=== PATIENT | female | born 1940 | race Caucasian/White ===

== ENCOUNTER 2018-06-13 12:16 | Outpatient (CLI) | payer MEDICARE, SELFPAY ==
[2018-06-13 13:55] LABS: Albumin 3.9 g/dL (3.4-5.0)
[2018-06-13 14:04] LABS: ALT 19 U/L (12-78); AST 20 U/L (15-37); Alkaline Phosphatase 90 U/L (46-116); Anion Gap 10.8 mmol/L (3-11); BUN 16 mg/dL (7-18); Bilirubin, Total 0.4 mg/dL (0.2-1.0); CO2 27.2 mmol/L (21.0-32.0); CREATININE 1.19 mg/dL (0.55-1.02); Calcium 9.1 mg/dL (8.5-10.1); Chloride 105 mmol/L (98-107); Estimated GFR 44.22 (mL/min/1.73m2); Glucose 96 mg/dL (70-100); Potassium 4.3 mmol/L (3.5-5.1); Sodium 143 mmol/L (136-145)
== END 2018-06-13 12:36 ==
PROVIDERS: PCP Nurse Practitioner; Visit Provider Family Medicine
DX: N18.3 Chronic kidney disease, stage 3 (moderate) (principal)
CPT/HCPCS: 36415; 80053

== ENCOUNTER 2019-01-21 13:46 | Outpatient (REF) | payer MEDICARE, SELFPAY ==
[2019-01-21 18:14] LABS: Anion Gap 7.4 mmol/L (3-11); BUN 18 mg/dL (7-18); CO2 27.6 mmol/L (21.0-32.0); CREATININE 1.11 mg/dL (0.55-1.02); Calcium 8.7 mg/dL (8.5-10.1); Chloride 104 mmol/L (98-107); Estimated GFR 47.79 (mL/min/1.73m2); Glucose 91 mg/dL (70-100); Potassium 4.3 mmol/L (3.5-5.1); Sodium 139 mmol/L (136-145)
== END 2019-01-21 14:06 ==
LOC: LBN 13:46
PROVIDERS: PCP Family Medicine; Visit Provider Family Medicine
DX: N18.3 Chronic kidney disease, stage 3 (moderate) (principal)
CPT/HCPCS: 80048

== ENCOUNTER 2019-05-15 17:01 | Outpatient (REF) | payer MEDICARE, SELFPAY ==
[2019-05-19 11:02] LABS: Lyme Ab w Rflx to Lyme Confirm Negative
[2019-05-19 17:29] LABS: Anaplasma phagocytophilum Negative (Negative); B. miyamotoi PCR Negative (Negative); Babesia divergens/MO-1 Negative (Negative); Babesia duncani Negative (Negative); Babesia microti Negative (Negative); Ehrlichia chaffeensis Negative (Negative); Ehrlichia ewingii/canis Negative (Negative); Ehrlichia muris eauclairensis Negative (Negative)
== END 2019-05-15 17:21 ==
LOC: LBN 17:01
PROVIDERS: PCP Family Medicine; Visit Provider Family Medicine
DX: M25.50 Pain in unspecified joint (principal)
CPT/HCPCS: 87798; 86618

== ENCOUNTER 2019-11-19 11:57 | Observation (INO) | payer MEDICARE, SELFPAY ==
[2019-11-19 12:01] VITALS: BP 128/58; PULSE 86; RESP 18; TEMP 36.3; O2SAT 95
--- NOTE | 2019-11-19 12:15 | DI.RAD_ITS ---
EXAM: XR HIP RT COMPLETE AP PELVIS INDICATION: Fall, right hip pain, hematoma. COMPARISON: No exams were available for comparison TECHNIQUE: 2D digital imaging was performed. FINDINGS: No fracture or dislocation is seen. There is acetabular spurring bilaterally. A metallic anchor is seen at the left greater trochanter. There are mild SI joint degenerative changes. Degenerative ch anges are also noted at L5-S1. IMPRESSION: No acute abnormality. DATA REPOSITORY: RADIATION DOSE DELIVERED:
--- NOTE | 2019-11-19 12:35 | W.ED.GENAD ---
Discharge Plan Disposition Patient Disposition: OTHER Condition: Serious Discharge Details Chief Complaint: Trauma Clinical Impression: Closed head injury with concussion, Traumatic hematoma of buttock Admit Date/Time: 11/19/19 15:08 Admit Provider: Bandar Grant Attending Provider: Bandar Grant Primary Care Provider: Matt Pichardo ED Provider: Bandar Savage Medical Decision Making 79-year-old female who had a slip and fall on ice striking the right side of her body. Increasing headache and pain in her right buttocks throughout the day. She appears well, no acute distress but does have a rather impressive hematoma to her right buttocks. She is neurologically intact but given her increasing headache I do believe that imaging of her head, right hip and pelvis are all reasonable. Patient is agreeable to this plan. She does not want any pain medication at this time. Discussed imaging of hip, pelvis, head, with patient?she has 2 friends in the room. She is relieved that there is nothing emergently present however at this time her friends are quite concerned about her going home in her current condition. She is 79 years old, lives at home alone, has no local family, and her friends live at least 20-25 minutes away. Patient does report mild dizziness at this time reports the dizziness is more of a feeling of being off balance and not of the room spinning. Had a long discussion, discussed her options, at this time patient would still like to try to go home. I will trial ambulate her with a walker. Patient was able to ambulate with a walker and it appeared steady however she reports now that the headache, dizzy feeling are both worsening and she even now has what she describes as in and out blurry vision of both eyes worse on the left. Visual acuities were obtained. We discussed options once again. I got care management involved in the case as well. Patient and friends do not believe that she can be discharged home safely at this time. Although she appears neurologically intact and in no acute distress subjectively she reports intermittent blurry vision, worsening headache, and worsening dizziness-feeling off balance. I do believe that a component of anxiety and the concern of her friends certainly is helping persuade her that she does need to stay here in the hospital. I will discuss the case with our hospitalist team for possible observation admission as I do not feel being discharged home is a safe disposition. It should be noted because she had a slip and fall, mechanically, laboratory values and IV access were never obtained. Medical Records Medical records reviewed: Yes I reviewed the patient's medical records. Imaging Data Radiologic Study: Attestation: I personally reviewed and interpreted this imaging study as follows: Imaging: X-Ray My impression: Right hip and pelvis unremarkable as read by me Radiologic Study #2: Imaging: CT Scan Radiologist's impression: CT head without contrast read by radiology as negative HPI General Mode of arrival: ambulatory. Date/Time Provider Initiated Documentation: 11/19/19 12:05. Limitations to Documentation: no limitations. Information obtained by: patient. HPI Narrative: This is a 79-year-old female with a history of insomnia, chronic renal disease, but not taking any medications. She had a mechanical slip and fall down 3 stairs walking outside, slipping on ice. She reports striking the right side of her body, head, elbow, hip. She did not lose consciousness. She had no headache at the time of the injury that occurred around 730 this morning but throughout the day she has developed a headache. The headache is throbbing, left frontal. She denies any pain of the elbow but does admit there is a bruise there. She did not have very severe discomfort in her right hip however as the day has gone on she is at increased swelling in her right buttocks which is caused increased pain. She reports a history of a buttocks hematoma that feels very similar to what she is experiencing now. Denies numbness, tingling, weakness. No other injuries besides what was already stated. She denies any symptoms prior to the fall Related Data Home Medications Medication Instructions Recorded Confirmed Neutrogena T/Fazal 133 ml TOPICAL PRN script 01/20/15 11/19/19 bacitracin [Bacitraycin Plus] 28 gm TOPICAL PRN 01/20/15 11/19/19 clobetasol 15 gm TOPICAL HS twice weekly #15 08/07/16 11/19/19 gm estradiol [Estrace] 42.5 gm VG 2X week #0.5 mg 08/07/16 11/19/19 acetaminophen 650 mg PO PRN PRN 11/28/16 11/19/19 clindamycin phosphate 60 ml TOPICAL PRN #1 script 01/22/18 11/19/19 varicella-zoster gE-AS01B (PF) 50 50 mcg IM ONCE #1 each 01/21/19 11/19/19 mcg/0.5 mL IM susp, kit Previous Rx's Medication Instructions Recorded clindamycin phosphate 60 ml TOPICAL PRN #1 script 01/22/18 varicella-zoster gE-AS01B (PF) 50 50 mcg IM ONCE #1 each 01/21/19 mcg/0.5 mL IM susp, kit Allergies Allergy/AdvReac Type Severity Reaction Status Date / Time Penicillins Allergy Severe Anaphylaxis Verified 11/19/19 16:07 amoxicillin Allergy Intermediate Rash Verified 11/19/19 16:07 latex Allergy Intermediate blisters, Verified 11/19/19 16:07 skin rash methotrexate Allergy Intermediate Rash Verified 11/19/19 16:07 azithromycin AdvReac Severe Severe Verified 11/19/19 16:07 nausea clindamycin AdvReac Intermediate diarrhea Verified 11/19/19 16:07 codeine AdvReac Intermediate does not Verified 11/19/19 16:07 work for her NSAIDS (Non-Steroidal AdvReac Intermediate Difficulty Verified 11/19/19 16:07 Anti-Inflamma with Vision onion AdvReac Intermediate Diarrhea Verified 11/19/19 16:07 General Stated Complaint: Trauma JUNAID: 3 Review of Systems Constitutional Constitutional: Denies fatigue, Denies fever(s), Reports headache(s) and Denies weakness Eyes Eyes: Denies blurry vision and Denies other visual disturbances ENT Ears, Nose, Mouth, and Throat: Denies dizziness and Reports headache(s) Cardiovascular Cardiovascular: Denies chest pain and Denies dyspnea Respiratory Respiratory: Denies dyspnea Gastrointestinal Gastrointestinal: Reports nausea and Denies vomiting Musculoskeletal Musculoskeletal: Reports back pain (Mild, lower right-sided) and Denies tingling Integumentary/Breasts Skin/Breast: Denies rash Neurologic Neurologic: Denies dizziness, Reports headache(s), Denies tingling, Denies paresthesias and Denies weakness Endocrine Endocrine: Denies fatigue PFSH Medical History Chronic kidney disease (CKD) stage G3b/A1, moderately decreased glomerular filtration rate (GFR) between 30-44 mL/min/1.73 square meter and albuminuria creatinine ratio less than 30 mg/g (Chronic) Collapsed vertebra, not elsewhere classified, cervical region, initial encounter for fracture (Chronic 12/01/16) some activities lead to pinched nerve, R-sided Grief (Acute) Insomnia (Acute) Intrinsic sphincter deficiency (ISD) (Resolved) 11/22/17 progress note [facility] [place] Director Of Institutional Research Irritable bowel syndrome with constipation (Chronic 08/14/17) 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) Palliative care patient (Acute) Postmenopausal atrophic vaginitis (Chronic 01/20/15) 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) Pruritus (Chronic 08/14/17) Pseudophakia of both eyes (Chronic 08/14/17) 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 Pets and animals: No Current gender identity: female What is your relationship status?: How often do you talk on the phone with friends or family?: three or more times per week How often do you get together with friends or relatives?: twice per week Panel score (0-1 are the most socially isolated patients): 1 What type of physical activity do you participate in: walking, bicycling and irregular exercise Duration: 30-45 minutes/day Frequency: 1-2 times per week Special allegra needs: No Seatbelt use: always Drive 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 or ride w/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 Working smoke detector in home: Yes Carbon monox detector in home: Yes Do you feel safe at home: Yes Do you feel safe in your relationship?: Yes Exam Const General: cooperative, healthy appearing and no acute distress Orientation: alert, awake and oriented x3 HENMT Head: normal to inspection, no palpable skull fracture, normocephalic and contusion (Small, right occiput) Ears: external ears normal, TM's normal bilaterally and EAC's normal Mouth: moist mucous membranes Eyes General: appearance normal, both eyes and all related structures Eyelids: eyelids normal Conjunctivae: conjunctivae normal Sclera: sclerae normal Cornea: corneas normal Pupils: PERRL EOM: EOM intact bilaterally Direct ophthalmoscopy: normal light reflex Neck Neck: normal visual inspection, full ROM, trachea midline and supple Resp Effort & Inspection: normal respiratory effort and able to speak in complete sentences Auscultation: clear to auscultation bilaterally Cardio Rate: regular rate Rhythm: regular rhythm GI Palpation: soft and nontender Back/Spine/Pelvis Back: back tenderness (Mild right-sided lumbar discomfort, no bony point tenderness) Skin General skin exam: no rashes or lesions noted and ecchymosis (Right elbow minimal. Impressive to the right buttocks) Neuro General: alert, awake, oriented x3, moves all extremities and no focal motor deficits Cranial Nerves: CN's II-XI intact bilaterally Cognition: normal cognition Speech: speech normal Motor: muscle tone normal throughout, strength 5/5 throughout and no pronator drift Sensory Exam: no sensory deficits noted Extrem General: normal to inspection (Except for right lower extremity as below, and right elbow as above) Left lower extremity: full ROM, normal capillary refill and hip/thigh Details: tenderness (Right buttocks), swelling (Right buttocks) and ecchymosis (Right buttocks); no cyanosis, no edema and joint enlargement noted Psych Appearance: grossly normal Mental Status: mental status grossly normal Course Vital Signs Vital signs: Vital Signs Temperature 36.3 C L 11/19/19 12:01 Pulse 86 11/19/19 12:01 Respiratory Rate 18 11/19/19 12:01 Blood Pressure 128/58 L 11/19/19 12:01 Pulse Oximetry 95 11/19/19 12:01 Temperature 36.3 C L 11/19/19 12:01 Temperature Source Skin 11/19/19 12:01 Pulse 86 11/19/19 12:01 Respiratory Rate 18 11/19/19 12:01 Respiratory Effort Non-Labored 11/19/19 12:05 Respiratory Depth Normal 11/19/19 12:05 Respiratory Pattern Normal 11/19/19 12:05 Blood Pressure 128/58 L 11/19/19 12:01 Blood Pressure Position Supine 11/19/19 12:01 Pulse Oximetry 95 11/19/19 12:01 Oxygen Delivery Method Room Air 11/19/19 12:01 Oxygen Flow Rate 0 11/19/19 12:01 Pain Level 0 11/19/19 12:05
--- NOTE | 2019-11-19 13:07 | DI.CT_ITS ---
EXAM: CT HEAD WO CLINICAL HISTORY: fall, struck back R head, MURILLO L front. TECHNIQUE: Imaging Protocol: Axial computed tomography images with coronal and sagittal reformatted images were created and reviewed COMPARISON: HEAD AND CSPINE W/O CONTRAST from 11/28/2016 XR HIP RT COMPLETE AP PELVIS from 11/19/2019 FINDINGS: Ventricles and Extra axial spaces: Normal in size and morphology for the patient's age. Hemorrhage: None. Cerebral parenchyma: Normal. Midline shift: None. Brainstem/Cerebellum: Normal. Calvarium: Normal. Visualized Paranasal sinuses/Mastoids: Clear. IMPRESSION: Normal CT of the head. RADIATION DOSE DELIVERED: DATA REPOSITORY: All CT scans at this facility are submitted to the National Radiology Data Registry (NRDR) Dose Index Registry (DIR) with the [employer] (ACR). RADIATION OPTIMIZATION: All CT scans at this facility use at least one of these dose optimization te chniques: automated exposure control; mA and/or kV adjustment per patient size (includes targeted exa ms where dose is matched to clinical indication); or iterative reconstruction.
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
[2019-11-19 16:24] VITALS: BP 165/72; PULSE 68; RESP 18; TEMP 36.5; O2SAT 98
[2019-11-19] MEDS: Acetaminophen 325 MG TAB PO ×2 (16:57→23:55)
[2019-11-19] MEDS: Enoxaparin 40 MG/0.4 ML SYR SC (18:34)
[2019-11-19 19:38] VITALS: BP 95/52; PULSE 62; RESP 16; TEMP 35.9; O2SAT 96
[2019-11-19 23:51] VITALS: BP 129/66; PULSE 62; RESP 16; TEMP 36.9; O2SAT 97
[2019-11-20 03:16] VITALS: BP 119/62; PULSE 63; RESP 16; TEMP 35.9; O2SAT 100
[2019-11-20 07:13] LABS: Platelet Count 243 x1000/uL (130-400)
[2019-11-20 07:31] VITALS: BP 139/66; PULSE 68; RESP 20; TEMP 36.7; O2SAT 95
[2019-11-20 11:50] VITALS: BP 130/75; PULSE 76; RESP 18; TEMP 36.6; O2SAT 98
[2019-11-20] MEDS: Acetaminophen 325 MG TAB PO (12:24)
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
--- NOTE | 2019-11-20 14:53 | CHAPLAIN ---
While Kerry was in the ER last night, I had a short visit with her. This morning she was up and washing up when I visited. She told me about her fall and said she was relieved she spent the night here. Kerry's , Kylie, six months ago, and although this has been a difficult time for Kerry, she continues to go and fine people to do things with. She swims three times a week with friends at the [employer] pool. Kerry said night time can still be difficult for her being alone in her house.
--- NOTE | 2019-11-20 17:12 | INITIAL_ITS ---
- If Service Date Differs Date of service: 11/20/19 Time of Service: 17:12 Care Management Initial Assess REASON FOR HOSPITALIZATION:: Closed head injury, r/t fall PAST MEDICAL HISTORY/PAST SURGICAL HISTORY:: Chronic kidney disease, collapsed vertebra, insomnia, intrinsic sphincter deficiency, insomnia, IBS, lichen sclerosis, osteoarthritis, pruritus, bursitis of the left hip, bursitis of the right hip, and urinary incontinence. Surgical history includes bilateral total knee replacement. PREVIOUS FUNCTIONAL STATUS/SOCIAL/FAMILY SUPPORTS:: Kerry lives alone in [facility]. She was recently , her spouse in April 2019. She has 1 daughter that lives in [place], and has 2 grandchildren. She currently does not use any equipment to ambulate, and she is independent with ADLs including transportation. 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 CURRENT FUNCTIONAL STATUS:: Kerry is alert, and engaged with CM during assess ment. Kerry makes good eye contact, and answers all questions appropriately. She openly discusses her grief related to her spouses passing. She did attempt to attend a bereavement group, however was not comfortable sharing her grief with others. She does have a small [place] of friends that she is able to swim with 3 times a week. She states that none of them could provide care for her at home however they are good social [place], and feels confident in her social support. ADVANCE DIRECTIVES:: On file. Has patient been provided with information about the portal?: No Did the patient sign up for the portal?: No (Already enrolled) CODE STATUS:: Full Code INSURANCE COVERAGE / FINANCIAL ISSUES:: Medicare and AARP CURRENT HOME/COMMUNITY SERVICES/EQUIPMENT:: No current services PRIMARY CARE PHYSICIAN:: Matt He DO at [facility] internal medicine POTENTIAL DISCHARGE NEEDS:: Kerry will need to follow-up with her primary care scheduled prior to discharge, she was provided with a front wheeled walker at the recommendation of PT. PATIENT/FAMILY EDUCATION NEEDS:: Discharge education, limitations, follow-up plan of care, asked me 3 and self-management ANTICIPATED BARRIERS TO DISCHARGE:: None TRANSPORTATION:: Via private car with friends at time of discharge. PLAN:: Kerry is being discharged home today, she is comfortable with the plan, and feels that she is ready for discharge. She has had a concussion in the past, and understands her plan of care. No additional services needed at time of discharge she will follow-up with her primary care as scheduled.
--- NOTE | 2019-11-21 13:10 | IN_ITS ---
Date of service: 11/20/19 Time of Service: 08:45 PT Notes Visit Reasons: POSTCONCUSSION DIZZINESS Physical Therapy Inpatient Initial Evaluation Date: 11/20/2019 Referring Doctor: Bandar Grant M.D. PT Orders: PT CONSULT: Safety consult for D/C Precautions: Fall. Standard. Activity as tolerated. Patient Profile/Admitting Diagnosis: Pt is a 79-year-old female that presented to the ER on 11/19/2019 following a fall at home on the ice. She was admitted to the hospital for a closed head injury with concussion and traumatic hematoma on her buttox. PMHX: Social History/Home Situation: Pt lives alone in her home in [place]. She reports that the home is handicap accessible once inside. Five stairs to enter from the front and 10 stairs to enter through the back door with railings only on one side. No family nearby. Equipment Owned/DME: Cane. Subjective: Pt reports that she had fallen when bringing her compost outside in the morning and did not realize the stairs were icy. States that she was very active and was able to ice skate before. Did not walk with an assistive device prior to her admission. She notes that she does all of the work around the house including shoveling and snow blowing, but has close friends that would be able to help out. Objective: General Observation: Pt was independently toileting when PT entered the room for initial evaluation. IV line in L UE. Bruising over right buttox. Mental Status: alert and oriented x4 Pain: pain along right side of back and right buttox. ROM: Right Upper Extremity: Shoulder Flexion WFL. Shoulder abduction WFL. Elbow flexion WFL. Wrist flexion WFL. Opening and closing of hand WFL. Left Upper Extremity: Shoulder Flexion WFL. Shoulder abduction WFL. Elbow flexion WFL. Wrist flexion WFL. Opening and closing of hand WFL. Right Lower Extremity: Hip flexion WFL. Hip abduction WFL. Knee flexion WFL. Ankle dorsiflexion WFL. Ankle plantarflexion WFL. Left Lower Extremity: Hip flexion WFL. Hip abduction WFL. Knee flexion WFL. Ankle dorsiflexion WFL. Ankle plantarflexion WFL. Strength: Right Upper Extremity: Shoulder flexors 5/5. Shoulder abductors 5/5. Elbow flexors 5/5. Elbow extensors 5/5. Chaplain Resident strong. Left Upper Extremity: Shoulder flexors 5/5. Shoulder abductors 5/5. Elbow fle xors 5/5. Elbow extensors 5/5. Chaplain Resident strong. Right Lower Extremity: Hip flexors 5/5. Hip abductors 5/5. Knee flexors 5/5. Knee extensors 5/5. Ankle dorsiflexors 5/5. Ankle plantarflexors 5/5. Left Lower Extremity: Hip flexors 5/5. Hip abductors 5/5. Knee flexors 5/5. Knee extensors 5/5. Ankle dorsiflexors 5/5. Ankle plantarflexors 5/5. Sensation: Intact as to pain and pressure on bilateral lower extremities. Reflexes: Right upper extremity: Triceps 2+. Biceps 2+ Brachioradialis 2+ Right lower extremity: Patellar tendon 2+. Achilles 0. Left upper extremity: Triceps 2+. Biceps 2+ Brachioradialis 2+ Left lower extremity: Patellar tendon 2+. Achilles 0. Bed Mobility/Transfers: Rolling independent Supine to sit independent Sit to supine independent Sit to stand supervision Stand to sit supervision Bed to chair SBA Chair to bed SBA Gait: Pt was able to ambulate 60 feet x2, full weightbearing, without the use of an assistive device, however did a handhold assist from the PT student for balance. Antalgic gait which she attributes to pain in her back and buttox, as she notes that this is not baseline. She ambulated 15 feet with the use of a front-wheeled walker. Step through gait pattern with improved stability. Supervision provided PT student. Stairs: Pt was able to ascend and descend 10 steps with unilateral upper extremity support. CGA provided by PT student with SBA proved by PT. Step through gait pattern. Balance: Static Sitting: Normal Dynamic Sitting: Normal Static Standing: Fair Dynamic Standing: Fair Special Tests: Mobility Limitations Standardized Measure [facility]-PAC 6 clicks Basic Mobility Inpatient Short Form: Raw Score: 23 CMS Score: 11% deficit Hernandez balance test: 54/56. Informed Consent/Education: Patient instructed in purpose of PT consult and plan of care. Assessment: Pt is a 79-year-old female that presented to the ER on 11/19/2019 following a fall at home on the ice. She was admitted to the hospital for a closed head injury with concussion and traumatic hematoma on her buttox. Physical therapy was consulted for a safety consult for discharge to home. The pt presented with impairment level findings and functional limitations as listed below. Hernandez balance score of 54/56 indicates low fall risk. Demonstrates antalgic gait and need for handhold assist with ambulation, which she attributes to pain in her back and buttox. With the use of a front-wheeled walk the pt demonstrated improved stability during ambulation and was agreeable to using an assistive device following discharge until pain has dissipated and she is more stable with independent ambulation. She was able to perform stair negotiation with unilateral upper extremity support without difficulty or complaints of incr eased pain. Pt does not require skilled physical therapy at this time and may be discharged home when medically cleared. Patient presents with clinical signs and symptoms consistent with current/ad mitting diagnoses that have resulted to mobility limitations and gait instability as demonstrated by the following impairment level findings: 1. Impaired standing balance 2. Impaired activity tolerance Impairments are contributing to the following functional limitations: 1. Inability to safely ambulate without assistive device and physical assistance 2. Increase completion time for mobility ADL performance 3. Increased fall risk Patient is [place] a 53785 moderate complexity based on the following: History: Pt presents with impairment level findings and functional limitations as listed above. AM-PAC raw score of 23 with deficit of 11%. Examination: Demonstrable impairment in strength, balance, and range of motion with underlying impairments and functional limitations as documented above Presentation: Evolving Decision Makin moderate complexity Goals: N/A. Physical therapy initial evaluation only. DISCHARGE RECOMMENDATIONS: Discharge to home when medically cleared. The patient would benefit from a front-wheeled walker at this time for safety with ambulation in the home. TREATMENT CODE/TIME: 46706 x 25 minutes beginning at 8:45 A.M. Thank you very much for this referral. Compa Solano, SPT Doctor of Physical Therapy Student [facility] Supervision provided by [facility] [place], [place]
== END 2019-11-20 14:21 | disposition home or self-care (01) ==
LOC: ER 15:28 → MS 16:13
PROVIDERS: Admitting Provider Internal Medicine; Emergency Provider Physician Assistant; PCP Family Medicine; Visit Provider Internal Medicine
DX: S06.0X0A Concussion without loss of consciousness, initial encounter (principal); S30.0XXA Contusion of lower back and pelvis, initial encounter; W00.1XXA Fall from stairs and steps due to ice and snow, initial encounter; R42 Dizziness and giddiness; R26.81 Unsteadiness on feet; Z87.820 Personal history of traumatic brain injury; H53.2 Diplopia; N18.3 Chronic kidney disease, stage 3 (moderate); F43.21 Adjustment disorder with depressed mood; Z60.2 Problems related to living alone
CPT/HCPCS: 36415; 36416; 82962; 97162; 99220; 99238; 99285; J1650; 70450; 73502; 85049; 99217; G0378

== ENCOUNTER 2020-01-09 11:23 | Observation (INO) | payer MEDICARE, SELFPAY ==
[2020-01-09] VITALS (8 sets, daily range): BP systolic 132–172; BP diastolic 70–89; PULSE 57–68; RESP 16–18; TEMP 36.1–36.4; O2SAT 97–99
--- NOTE | 2020-01-09 11:45 | DI.CT_ITS ---
EXAM: CT HEAD WO CLINICAL HISTORY: Vision changes, headache. TECHNIQUE: Imaging Protocol: Axial computed tomography images with coronal and sagittal reformatted images were created and reviewed COMPARISON: CT HEAD WO from 11/19/2019 FINDINGS: Ventricles and Extra axial spaces: Normal in size and morphology for the patient's age. Hemorrhage: None. Cerebral parenchyma: There are areas of decreased attenuation in the white matter consistent with sma ll vessel ischemic disease. Midline shift: None. Brainstem/Cerebellum: Normal. Calvarium: Normal. Visualized Paranasal sinuses/Mastoids: Clear. Soft Tissues: Unremarkable. IMPRESSION: No acute intracranial process. Findings were discussed with the emergency department on the date of the examination. RADIATION DOSE DELIVERED: DATA REPOSITORY: All CT scans at this facility are submitted to the National Radiology Data Registry (NRDR) Dose Index Registry (DIR) with the [employer] (ACR). RADIATION OPTIMIZATION: All CT scans at this facility use at least one of these dose optimization te chniques: automated exposure control; mA and/or kV adjustment per patient size (includes targeted exa ms where dose is matched to clinical indication); or iterative reconstruction.
--- NOTE | 2020-01-09 11:48 | ED.GENADUL_ITS ---
Discharge Plan Disposition Patient Disposition: AGAINST MEDICAL ADVICE Condition: Serious Discharge Details Chief Complaint: Headache Clinical Impression: Transient ischemic attack Admit Date/Time: 01/09/20 20:35 Admit Provider: Shun Rizzo Attending Provider: Shun Rizzo Primary Care Provider: Matt Pichardo ED Provider: Florentino Vasquez Discharge Data Discharge Date/Time-TO BE ENTERED AT DEPARTURE: 01/09/20 22:40 Medical Decision Making <Radha Pritchard - Last Filed: 01/10/20 08:04> 79-year-old female presents with vision changes which occurred twice prior to arrival. Patient states that she was in the car when she had flashes of white light which were worse in her left eye and her right eye. She then began with a sharp pain behind her left eye. She does have a history of cataract surgery. She does have a history of migraines. She did fall on December 17 and has a healing contusion noted to her left hip. She states that she slipped on some ice and fell back hitting her head. She is not on any blood thinners at this time. She is alert and oriented x3 upon arrival. No focal neuro deficits appreciated on initial exam. Vision changes get worse with position changes. When she stands up or sits up her visual changes return. She denies any chest pain, shortness of breath, nausea vomiting diarrhea. She is sensitive to sound and light. She also does state that yesterday she collapsed while outside. She states that she got dizzy and fell. 1152: Patient is alert and oriented x3. She reports intermittent episodes of visual changes including white flashing lights lasting. Associated with sharp pain behind eyes. She does have a history of migraines. This occurred 3 times in the last 4 days prior to arrival. Today's episode lasted approximately 15 minutes. Initial work-up includes CBC, CMP, urinalysis, IV fluids, CT head. 1310: CT head negative for mass or hemorrhage, initial work-up is largely within normal limits except for trace blood in the urine, creatinine 1.16 and elevated MCV and MCH. No leukocytosis. Discussed results with patient and due to the fact that she is still complaining of a headache, has had flashing lights visual changes and dizziness with a fall yesterday MRI without contrast ordered to rule out any intracerebral pathology. COMPARISON: CT HEAD WO from 11/19/2019 FINDINGS: Ventricles and Extra axial spaces: Normal in size and morphology for the patient's age. Hemorrhage: None. Cerebral parenchyma: There are areas of decreased attenuation in the white matter consistent with small vessel ischemic disease. Midline shift: None. Brainstem/Cerebellum: Normal. Calvarium: Normal. Visualized Paranasal sinuses/Mastoids: Clear. Soft Tissues: Unremarkable. IMPRESSION: No acute intracranial process. EKG obtained shows sinus bradycardia no ST elevation or depression. Rate of 55 CT is 158 QT/QTc is 476 445. Old EKG was available for review and shows normal sinus rhythm. 1516: At this time we are awaiting MRI. Upon patient reevaluation she states that her headache has somewhat decreased and is declining any medications at this time. Differential diagnosis includes but not limited to CVA, retinal detachment, o cular migraine, retinal embolus. Atypical migraine headache. 1552: Patient transported to MRI. She remains alert and oriented. Care to be handed off to Dr. Pedro MCELROY pending MRI result and disposition. <Florentino Vasquez MD - Last Filed: 01/09/20 20:17> 16:00 --care signed out by GEORGETTE Pritchard. Plan to follow-up on MRI and MRA. --MRI was interpreted by radiology: Unremarkable MRI of the brain for patient age. MRA of the brain interpreted by radiology: Short segment severe stenosis of the right P1?P2 junction. Additional foci of short segment mild to moderate stenosis throughout the remaining distal right INFORMATION TECHNOLOGY ANALYST branches. MRI of the neck interpreted by radiology: No MRA evidence of occlusion or significant stenosis in the arteries of the neck. ECG was reviewed and interpreted by me: Sinus bradycardia 55 bpm, normal axis, nondiagnostic. Patient was reassessed and I talked to her about her current presentation. She notes left upper visual field loss that started around 1030 this morning. She describes having a small white pyramid lake in her left upper visual field that increased in size. She then developed depth perception while driving and had to close her left eye in order to continue driving. Patient states that every 6 to 8 months she has had brief similar episodes over the past few years. Patient also notes that she has had associated frontal headache which is currently mild. I am concerned given MRI findings that patient is having TIA. Plan to discuss with neurology at [facility]. Images sent to [facility] for review. --I spoke with Dr. Silva and discussed ED presentation and course. She has not had an opportunity to review images yet. She will review images and call me back. --I spoke with Dr. Silva who recommends full dose aspirin, full dose Plavix, and atorvastatin tonight. She recommends admission here at [facility] for monitoring overnight. Per neurology recommendation: Plan to continue low-dose aspirin 81 mg and Plavix 75 mg and atorvastatin 40 mg daily on discharge. HPI <Radha Pritchard - Last Filed: 01/10/20 08:04> General Mode of arrival: ambulatory . Date/Time Provider Initiated Documentation: 01/09/20 11:28 . Limitations to Documentation: no limitations . Information obtained by: patient . HPI Narrative: 79-year-old female presents with vision changes which occurred twice prior to arrival. Patient states that she was in the car when she had flashes of white light which were worse in her left eye and her right eye. She then began with a sharp pain behind her left eye. She does have a history of cataract surgery. She does have a history of migraines. She did fall on December 17 and has a healing contusion noted to her left hip. She states that she slipped on some ice and fell back hitting her head. She is not on any blood thinners at this time. She is alert and oriented x3 upon arrival. No focal neuro deficits appreciated on initial exam. Vision changes get worse with position changes. When she stands up or sits up her visual changes return. She denies any chest pain, shortness of breath, nausea vomiting diarrhea. She is sensitive to sound and light. She also does state that yesterday she collapsed while outside. She states that she got dizzy and fell. Related Data Home Medications Medication Instructions Recorded Confirmed Neutrogena T/Fazal 133 ml TOPICAL PRN script 01/20/15 01/09/20 bacitracin [Bacitraycin Plus] 28 gm TOPICAL PRN 01/20/15 01/09/20 clobetasol 15 gm TOPICAL HS twice weekly #15 08/07/16 01/09/20 gm estradiol [Estrace] 42.5 gm VG 2X week #0.5 mg 08/07/16 01/09/20 acetaminophen 650 mg PO PRN PRN 11/28/16 01/09/20 clindamycin phosphate 1 % topical 1 applic TOPICAL DAILY PRN #30 ml 11/21/19 01/09/20 solution aspirin [Ecotrin Low Strength] 81 mg PO DAILY #60 tab 01/09/20 atorvastatin 40 mg PO DAILY #30 tab 01/09/20 clopidogrel [Plavix] 75 mg PO DAILY #30 tab 01/09/20 Previous Rx's Medication Instructions Recorded clindamycin phosphate 1 % topical 1 applic TOPICAL DAILY PRN #30 ml 11/21/19 solution aspirin [Ecotrin Low Strength] 81 mg PO DAILY #60 tab 01/09/20 atorvastatin 40 mg PO DAILY #30 tab 01/09/20 clopidogrel [Plavix] 75 mg PO DAILY #30 tab 01/09/20 Allergies Allergy/AdvReac Type Severity Reaction Status Date / Time Penicillins Allergy Severe Anaphylaxis Verified 11/28/19 09:04 amoxicillin Allergy Intermediate Rash Verified 11/28/19 09:04 latex Allergy Intermediate blisters, Verified 11/28/19 09:04 skin rash methotrexate Allergy Intermediate Rash Verified 11/28/19 09:04 azithromycin AdvReac Severe Severe Verified 11/28/19 09:04 nausea clindamycin AdvReac Intermediate diarrhea Verified 11/28/19 09:04 codeine AdvReac Intermediate does not Verified 11/28/19 09:04 work for her NSAIDS (Non-Steroidal AdvReac Intermediate Difficulty Verified 11/28/19 09:04 Anti-Inflamma with Vision onion AdvReac Intermediate Diarrhea Verified 11/28/19 09:04 General Stated Complaint: Headache JUNAID: 3 Review of Systems <Radha Ovalleton Beamr Filed: 01/10/20 08:04> Narrative: Constitutional: Negative for weight loss, alert and oriented, well groomed, normal body habitus, appears anxious, tearful. HEENT: Denies ear pain, nasal discharge, sore throat, trouble swallowing. Positive history of cataract repair, she reports visual changes and headache. Chest: Denies chest pain, palpitations, irregular rhythm, hypertension. Respiratory: Denies Shortness of breath, cough, hemoptysis. GI: Denies abdominal pain, nausea, vomiting, diarrhea, constipation. : Denies dysuria, hematuria, flank pain, rectal bleeding. Neuro: Denies weakness, syncope,or facial numbness. Positive dizzy and fall yesterday, reports visual changes, headache. Hematologic: Denies easy bruising, intolerance to heat or cold, hair loss. 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 progress note [facility] [place] [employer] Duty [employer] Irritable bowel syndrome with constipation (Chronic 08/14/17) 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) Palliative care patient (Acute) Postmenopausal atrophic vaginitis (Chronic 01/20/15) 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) Pruritus (Chronic 08/14/17) Pseudophakia of both eyes (Chronic 08/14/17) 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 Maternal Grandmother Breast cancer Maternal Aunt Breast cancer Maternal Aunt Breast cancer MS (multiple sclerosis) Maternal Aunt Breast cancer Maternal Aunt Breast cancer Daughter No problems noted. 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 Pets and animals: No Current gender identity: female What is your relationship status?: How often do you talk on the phone with friends or family?: three or more times per week How often do you get together with friends or relatives?: twice per week Panel score (0-1 are the most socially isolated patients): 1 What type of physical activity do you participate in: walking, bicycling and swimming Duration: 30-45 minutes/day Frequency: 3-4 times per week Special allegra needs: No Seatbelt use: always Drive intox or ride w/intox transfer driver: No Working smoke detector in home: Yes Carbon monox detector in home: Yes Do you feel safe at home: Yes Do you feel safe in your relationship?: Yes Additional Social history: Kylie May 2019 in the hospital on hospice after a prolonged illness. She's been suffering with grief since then. Trying to get out with friends. Staying physically active: walking and swimming in the winter. Will return to biking in the summer. Not close to her family members of origin or to her only daughter. I'm a loner. Exam <Radha Pritchard - Last Filed: 01/10/20 08:04> Narrative Exam Narrative: Constitutional: Alert and oriented x3. Appears stated age. Normal body habitus. Tearful anxious. Head: Normocephalic, no trauma. Eyes: Pupils PERRLA, Red reflex noted, EOM's intact. Cataracts noted. Eyelids symmetrical without lesions, discharge, or swelling. Sensitive with light. ENT: Bilateral TM's WNL, External ear normal to inspection, no mastoid TTP, swelling, or erythema, Nasal turbinates WNL, no nasal discharge. Normal dentition, Posterior pharynx WNL, no exudate. Chest: RRR, Normal S1, S2, distal pulses intact. Resp: Lungs clear to auscultation bilaterally, no wheezes, rales, or rhonchi. Musculoskeletal: Normal gait, 5/5 strength to all four extremities. Skin: No suspicious rashes or lesions. Capillary refill less than 2 sec. Neurologic: Cranial nerves II-XII intact. Alert and oriented x 3. DTR's intact. Intact [id number] bilaterally. Intact dorsal flexion and pedal flexion. Hematologic/Lymphatic: No ecchymosis, no lymphadenopathy. Neuro General: moves all extremities and no focal motor deficits Cranial Nerves: no nystagmus, facial strength normal, tongue midline, able to rotate head bilaterally and able to elevate shoulders bilaterally Cognition: normal cognition Speech: speech normal Motor: muscle tone normal throughout Coordination: [id number] test normal Psych Appearance: well kempt Mood: anxious mood Affect: sad Course <Radha Pritchard - Last Filed: 01/10/20 08:04> Vital Signs Vital signs: Vital Signs Temperature 36.1 C L 01/09/20 11:31 Pulse 61 01/09/20 11:31 Blood Pressure 159/70 H 01/09/20 11:31 Pulse Oximetry 99 01/09/20 11:31 Temperature 36.1 C L 01/09/20 11:31 Pulse 61 01/09/20 11:31 Respiratory Effort 01/09/20 11:38 Blood Pressure 159/70 H 01/09/20 11:31 Blood Pressure Position Supine 01/09/20 11:31 Pulse Oximetry 99 01/09/20 11:31 Oxygen Delivery Method Room Air 01/09/20 11:31 Oxygen Flow Rate 0 01/09/20 11:31 Pain Level 4 01/09/20 11:31 Comment 01/09/20 11:31 Sign Out <Radha Pritchard - Last Filed: 01/10/20 08:04> Sign Out Data: Sign Out Comment: Pending MRI/MRA result Last updated by Radha Pritchard at 01/09/20 16:08
[2020-01-09 12:11] LABS: Bilirubin Negative (Negative); Blood Trace-intact (Negative); Clarity Clear (Clear); Glucose Negative (Negative); Ketones Negative (Negative); Leukocyte Esterase Negative (Negative); Nitrite Negative (Negative); Specific Gravity 1.025 (1.005-1.025); Urobilinogen 0.2 EU/dL (Up TO 0.2)
[2020-01-09 12:15] LABS: Abs Immature Grans 0.01 k/cumm (0.0-0.09); Absolute Basophil Count 0.04 k/cumm (0.0-0.2); Absolute Eosinophil Count 0.32 k/cumm (0.0-0.7); Absolute Lymphocyte Count 1.87 k/cumm (1.2-3.4); Absolute Monocyte Count 0.91 k/cumm (0.11-0.7); Absolute Neutrophil Count 4.11 k/cumm (1.2-6.7); Basophils % 0.6; Eosinophils % 4.4; HCT 43.2 % (36.0-46.0); HGB 14.6 g/dL (12.0-15.5); Immature Grans % 0.1 %; Lymphocytes % 25.8; Mean Corp. HGB Concentration 33.8 g/dL (32.0-36.0); Mean Corpuscular Hemoglobin 33.4 pg (27.0-33.0); Mean Corpuscular Volume 98.9 fL (80-95); Mean Platelet Volume 9.5 fL (8.0-11.0); Monocytes % 12.5; Neutrophils % 56.6; Platelet Count 264 x1000/uL (130-400); RBC 4.37 m/cumm (4.00-5.20); White Blood Cell Count 7.26 k/cumm (4.4-10.8)
[2020-01-09 12:21] LABS: ALT 21 U/L (14-59); AST 22 U/L (15-37); Alkaline Phosphatase 68 U/L (46-116); Anion Gap 10.2 mmol/L (3-11); BUN 18 mg/dL (7-18); Bilirubin, Total 0.4 mg/dL (0.2-1.0); CO2 25.8 mmol/L (21.0-32.0); CREATININE 1.16 mg/dL (0.55-1.02); Calcium 9.1 mg/dL (8.5-10.1); Chloride 104 mmol/L (98-107); Glucose 95 mg/dL (74-106); Potassium 4.5 mmol/L (3.5-5.1); Sodium 140 mmol/L (136-145); Total Protein 7.3 g/dL (6.4-8.2)
[2020-01-09 12:30] LABS: Bacteria Negative HPF (Negative); Crystals Negative HPF (Negative); Epithelial Cells Rare HPF (Negative); RBC 0-2 HPF (0-2); WBC 0-2 HPF (0-5)
[2020-01-09 12:31] LABS: C & S Indicated? No; Casts Negative LPF (Negative); Mucus Negative (Negative)
[2020-01-09] MEDS: Normal Saline 1,000 ML 150 ML IV (12:55)
--- NOTE | 2020-01-09 13:00 | DI.MRI_ITS ---
EXAM: MR BRAIN WO CLINICAL HISTORY: Visual changes, headache, dizziness, falls. TECHNIQUE: Multiplanar multisequence MRI was performed. COMPARISON: No exams were available for comparison FINDINGS: MR examination of brain was performed without contrast administration. There is moderate generalized cerebral atrophy and there are periventricular areas of abnormal signal consistent with microvascula r ischemic change, sparing the corpus callosum. No additional focal signal abnormality seen. Diffus ion weighted imaging is within normal limits. Susceptibility weighted imaging shows no evidence of a cute intracranial hemorrhage. IMPRESSION: Cerebral atrophy and presumed microvascular ischemic changes. No evidence of acute process. DATA REPOSITORY:
--- NOTE | 2020-01-09 16:00 | DI.MRI_ITS ---
EXAM: MR ANGIO BRAIN WO and MR ANGIO NECK CLINICAL HISTORY: visual changes. TECHNIQUE: Multiplanar multisequence MRI was performed. COMPARISON: MR BRAIN WO from 01/09/2020 MR ANGIO NECK WO from 01/09/2020 FINDINGS: MR angiography of the carotid circulation was performed according to the usual protocol. There is si gnificant artifact which limits interpretation. Visualized portions of common, internal, and externa l carotid arteries appear patent with no gross aneurysm or stenosis. Vertebral arteries as visualized appear intact with no aneurysm or stenosis. MR angiography of the intracranial circulation was performed according to the usual protocol. There is left dominant vertebral circulation. Basilar artery appears intact. No vertebrobasilar aneurysm or stenosis. There is a probable high-grade short-segment stenosis of the right posterior cerebral artery at the j unction of P1 and P2 segments. Otherwise the visualized posterior cerebral arteries and major branches appear intact. Internal carotid arteries show no evidence of significant stenosis or aneurysm. Middle and anterior cerebral arteries and major branches appear intact bilaterally with no focal stenosis or aneurysm. 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 No other significant findings. DATA REPOSITORY:
--- NOTE | 2020-01-09 16:57 | DI.VRAD_ITS ---
Addendum created by Valentino Ogden MD on 01/09/2020 5:13:43 PM EDT THIS REPORT CONTAINS FINDINGS THAT MAY BE CRITICAL TO PATIENT CARE. The findings were verbally communicated via telephone conference with Dr. Florentino Vasquez at 5:13 PM EDT on 01/09/2020. The findings were acknowledged and understood. Initial report created on 01/09/2020 4:57:40 PM EDT PROCEDURE INFORMATION: Exam: MR Head Without Contrast Exam date and time: 01/09/2020 4:45 PM Age: 79 years old Clinical indication: Dizziness and giddiness and headache and visual disturbance; Type not specified TECHNIQUE: Imaging protocol: MR of the head without contrast. Other technique: MRA is recommended to evaluate for vascular structures. COMPARISON: MR ANGIO BRAIN WO 01/09/2020 4:13 PM FINDINGS: Brain: Nonspecific T2/FLAIR hyperintensities of the periventricular and deep subcortical white matter, most likely secondary to chronic small vessel ischemic change. Small focus of susceptibility artifact in the right cerebellar hemisphere, representing either tiny calcification versus hemosiderin deposition from chronic microhemorrhage. No evidence of acute intracranial hemorrhage. No extra-axial fluid collection. No evidence of mass effect or midline shift. No restricted diffusion to suggest acute infarct. Ventricles: Prominence of the ventricles and sulci, likely attributed to parenchymal volume loss. Bones/joints: Unremarkable. Soft tissues: Unremarkable. Sinuses: Unremarkable. Mastoid air cells: No mastoid effusion. Orbits: Unremarkable. IMPRESSION: 1. No acute intracranial pathology. 2. Other chronic findings, as above. PROCEDURE INFORMATION: Exam: MR Angiogram Head Without Contrast, Arteries Exam date and time: 01/09/2020 4:45 PM Age: 79 years old Clinical indication: Dizziness and giddiness and headache and visual disturbance; Type not specified TECHNIQUE: Imaging protocol: MR angiogram head without contrast. Exam focused on the arteries. Other technique: MRA is recommended to evaluate for vascular structures. COMPARISON: MR ANGIO BRAIN WO 01/09/2020 4:13 PM FINDINGS: Right internal carotid artery: Intracranial segment is patent with no significant stenosis. No aneurysm. Right anterior cerebral artery: No occlusion or significant stenosis. No aneurysm. Right middle cerebral artery: No occlusion or significant stenosis. No aneurysm. Right posterior cerebral artery: Short segment severe stenosis of the right P1-P2 junction. 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 Right vertebral artery: No occlusion or significant stenosis. No aneurysm. Left internal carotid artery: Intracranial segment is patent with no significant stenosis. No aneurysm. Left anterior cerebral artery: No occlusion or significant stenosis. No aneurysm. Left middle cerebral artery: No occlusion or significant stenosis. No aneurysm. Left posterior cerebral artery: No occlusion or significant stenosis. No aneurysm. Left vertebral artery: No occlusion or significant stenosis. No aneurysm. Basilar artery: No occlusion or significant stenosis. No aneurysm. IMPRESSION: 1. Short segment severe stenosis of the right P1-P2 junction. 2. 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 PROCEDURE INFORMATION: Exam: MR Angiography Neck Without Contrast Exam date and time: 01/09/2020 4:45 PM Age: 79 years old Clinical indication: Dizziness and giddiness and headache and visual disturbance; Type not specified TECHNIQUE: Imaging protocol: Magnetic resonance angiography of the neck without contrast. 3D rendering: MIP and/or 3D reconstructed images were created by the technologist. COMPARISON: MR ANGIO BRAIN WO 01/09/2020 4:13 PM FINDINGS: Right common carotid artery: No significant stenosis or occlusion. Right internal carotid artery: Extracranial segment is patent without evidence of hemodynamically significant stenosis. Right external carotid artery: Unremarkable. Right vertebral artery: No significant stenosis or occlusion. Left common carotid artery: No significant stenosis or occlusion. Left internal carotid artery: Extracranial segment is patent without evidence of hemodynamically significant stenosis. Left external carotid artery: Unremarkable. Left vertebral artery: No significant stenosis or occlusion. IMPRESSION: No MRA evidence of occlusion or significant stenosis in the arteries of the neck. REFERENCES: NASCET CRITERIA. The degree of internal carotid artery stenosis is based on NASCET criteria. Normal is no stenosis. Mild is less than 50% stenosis. Moderate is 50-69% stenosis. Severe is 70% to 99% stenosis. Total occlusion is no detectable patent lumen. Dictated and Authenticated by: Valentino Ogden MD. Ordering:RJ Garcia MD
--- NOTE | 2020-01-09 17:09 | DI.VRAD_ITS ---
PROCEDURE INFORMATION: Exam: MR Head Without Contrast Exam date and time: 01/09/2020 3:46 PM Age: 79 years (approx. age) old Clinical indication: Dizziness and visual disturbance TECHNIQUE: Imaging protocol: MR of the head without contrast. 3D rendering: MIP and/or 3D reconstructed images were created by the technologist. COMPARISON: No relevant prior studies available. FINDINGS: Brain: Normal. No acute infarct. No hemorrhage. T2/FLAIR hyperintense signal abnormality in the periventricular, deep, and juxta cortical white matter is within normal limits for patient age and likely reflects sequela of chronic small vessel ischemic disease. No edema. Punctate focus of magnetic susceptibility in the right cerebellar hemisphere may represent mineralization or sequela of prior microhemorrhage. Ventricles: Normal. No ventriculomegaly. Bones/joints: Unremarkable. Soft tissues: Unremarkable. Sinuses: Normal as visualized. No acute sinusitis. Mastoid air cells: Normal as visualized. No mastoid effusion. Orbits: Unremarkable. IMPRESSION: Unremarkable MRI of the brain for patient age. Dictated and Authenticated by: Markus Johnson MD. Ordering:RJ Garcia MD
[2020-01-09] MEDS: Aspirin E.C. 325 MG TABEC PO (19:06)
--- NOTE | 2020-01-09 20:20 | HPE_ITS ---
Date of service: 01/09/20 Time of Service: 20:20 Assessment and Plan Assessment and plan (1) Visual changes: Status: Acute Assessment and plan: I think this is quite likely in fact a migraine, as evidenced by the long pattern of such, the presence of positive symptoms, and thre accompanying headache and photophobia. Certainly the location of the arterial stenosis is consistent with a left field disturbance but in the overall context I think this seems more incidental. But this cannot be considered certain. In any case it would be reasonable to treat as per neuro recommendations and will also monitor on telemetry to r/o occult PAF. Reviewed ADs, requests full code. History of Present Illness History of Present Illness Chief Complaint: visual disturbance Narrative: 79 female reports 40 years of visual spells, which she has been told are silent migraines (despite the fact that she relates that they involve as headache). At any reat today patient such a spell, only more persistent; specifically, she developed a change in vision in which she sees clumps of lines, ast times colored, jumbled together like pickle solution maker sticks, which then expand and move to the left periphery of her visual field (she covered her left eye and noted persistent symptoms with her right eye). She then had a temporal headache, first left then bitemporal, along with photophobia and tearing of the eye. Entire spell lasted more than 20 minutes (usually are much shorter). In ER exam u nremarkable. MRI negative, MRA shos tight stenosis of right CYBER SECURITY INSTRUCTOR at P1-P2 junction. ERR reviewed case with neuro who advised DUAP and statin, and observation. Admitted for further management. 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 Irritable bowel syndrome with constipation (Chronic 08/14/17) 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) Palliative care patient (Acute) Postmenopausal atrophic vaginitis (Chronic 01/20/15) 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) Pruritus (Chronic 08/14/17) Pseudophakia of both eyes (Chronic 08/14/17) 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 Maternal Grandmother Breast cancer Maternal Aunt Breast cancer Maternal Aunt Breast cancer MS (multiple sclerosis) Maternal Aunt Breast cancer Maternal Aunt Breast cancer Daughter No problems noted. 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 Pets and animals: No Current gender identity: female What is your relationship status?: How often do you talk on the phone with friends or family?: three or more times per week How often do you get together with friends or relatives?: twice per week Panel score (0-1 are the most socially isolated patients): 1 What type of physical activity do you participate in: walking, bicycling and swimming Duration: 30-45 minutes/day Frequency: 3-4 times per week Special allegra needs: No Seatbelt use: always Drive intox or ride w/intox short haul driver: No Working smoke detector in home: Yes Carbon monox detector in home: Yes Do you feel safe at home: Yes Do you feel safe in your relationship?: Yes Additional Social history: Kylie May 2019 in the hospital on hospice after a prolonged illness. She's been suffering with grief since then. Trying to get out with friends. Staying physically active: walking and swimming in the winter. Will return to biking in the summer. Not close to her family members of origin or to her only daughter. I'm a loner. Meds Home Medications and Allergies Home Medications Medication Instructions Recorded Confirmed Type Neutrogena T/Fazal 133 ml TOPICAL PRN script 01/20/15 01/09/20 History bacitracin [Bacitraycin Plus] 28 gm TOPICAL PRN 01/20/15 01/09/20 History clobetasol 15 gm TOPICAL HS twice weekly #15 08/07/16 01/09/20 History gm estradiol [Estrace] 42.5 gm VG 2X week #0.5 mg 08/07/16 01/09/20 History acetaminophen 650 mg PO PRN PRN 11/28/16 01/09/20 History clindamycin phosphate 1 % topical 1 applic TOPICAL DAILY PRN #30 ml 11/21/19 01/09/20 Rx solution aspirin [Ecotrin Low Strength] 81 mg PO DAILY #60 tab 01/09/20 Rx atorvastatin 40 mg PO DAILY #30 tab 01/09/20 Rx clopidogrel [Plavix] 75 mg PO DAILY #30 tab 01/09/20 Rx Allergies Allergy/AdvReac Type Severity Reaction Status Date / Time Penicillins Allergy Severe Anaphylaxis Verified 11/28/19 09:04 amoxicillin Allergy Intermediate Rash Verified 11/28/19 09:04 latex Allergy Intermediate blisters, Verified 11/28/19 09:04 skin rash methotrexate Allergy Intermediate Rash Verified 11/28/19 09:04 azithromycin AdvReac Severe Severe Verified 11/28/19 09:04 nausea clindamycin AdvReac Intermediate diarrhea Verified 11/28/19 09:04 codeine AdvReac Intermediate does not Verified 11/28/19 09:04 work for her NSAIDS (Non-Steroidal AdvReac Intermediate Difficulty Verified 11/28/19 09:04 Anti-Inflamma with Vision onion AdvReac Intermediate Diarrhea Verified 11/28/19 09:04 Exam Narrative Exam Narrative: 149/77, 61, 36.2, 18. HEENT no temporal artery nodularity. Neck supple, lungs clear; heart RRR w/O MRG; abdomen soft and NT; extremities w/o edema; neuro Ox3, CN intact; motor 5/5, toes downgoing Results Labs Result diagrams: 01/09/20 11:42 01/09/20 11:42 Labs: Laboratory Results - last 24 hr 01/09/20 01/09/20 01/09/20 11:42 11:42 11:49 WBC 7.26 RBC 4.37 Hgb 14.6 Hct 43.2 MCV 98.9 H MCH 33.4 H MCHC 33.8 RDW 13.0 Plt Count 264 MPV 9.5 Immature Gran % 0.1 Neutrophils % 56.6 Lymphocytes % 25.8 Monocytes % 12.5 Eosinophils % 4.4 Basophils % 0.6 Absolute Neutrophils 4.11 Absolute Lymphocytes 1.87 Absolute Monocytes 0.91 H Absolute Eosinophils 0.32 Absolute Basophils 0.04 Sodium 140 Potassium 4.5 Chloride 104 Carbon Dioxide 25.8 Anion Gap 10.2 BUN 18 Creatinine 1.16 H Estimated GFR/1.73 m2 45.30 Glucose 95 Calcium 9.1 Total Bilirubin 0.4 AST 22 ALT 21 Alkaline Phosphatase 68 Total Protein 7.3 Albumin 4.0 Urine Color Yellow Urine Clarity Clear Urine pH 6.0 Ur Specific [place] 1.025 Urine Protein Negative Urine Ketones Negative Urine Blood Trace-intact H Urine Nitrite Negative Urine Bilirubin Negative Urine Urobilinogen 0.2 Ur Leukocyte Esterase Negative Urine RBC 0-2 Urine WBC 0-2 Ur Epithelial Cells Rare Urine Crystals Negative Urine Bacteria Negative Urine Casts Negative Urine Mucus Negative Ur Culture Indicated? No Urine Glucose Negative Last Vital Signs Temp 36.2 C L 01/09/20 19:28 Pulse 61 01/09/20 19:28 Resp 18 01/09/20 16:47 BP 149/77 H 01/09/20 19:28 Pulse Ox 99 01/09/20 19:28 COVID-19 Screening Traveled to [place] from one of the affected countries or regions?: NO Recent travel in the [place] within the last 8 weeks?: No Recent out of the country travel within the last 8 weeks?: No Exposure or possible exposure to illness during travel?: No Had IN PERSON contact w/suspected or confirmed C-19 person: No Have you had the following symptoms in the past few days?: No Symptoms noted since travel?: No Symptoms
[2020-01-09] MEDS: Clopidogrel 300 MG TAB PO (20:41)
[2020-01-09] MEDS: Atorvastatin 40 MG TAB PO (20:41)
[2020-01-09 22:04] LABS: ESR 12 mm/hr (0-30)
[2020-01-10 02:11] VITALS: BP 133/67; PULSE 66; RESP 24; TEMP 36; O2SAT 95
[2020-01-10 04:05] VITALS: BP 170/83; PULSE 70; RESP 17; TEMP 36.7; O2SAT 96
[2020-01-10 07:41] VITALS: BP 177/78; PULSE 63; RESP 18; TEMP 35.8; O2SAT 96
--- NOTE | 2020-01-10 08:34 | PDOC.CMIN ---
- If Service Date Differs Date of service: 01/10/20 Time of Service: 08:34
[2020-01-10] MEDS: Aspirin 81 MG CHEW PO (08:50)
[2020-01-10] MEDS: Clopidogrel 75 MG TAB PO (08:50)
--- NOTE | 2020-01-10 11:06 | DSE_ITS ---
Date of service: 01/10/20 Time of Service: 11:06 DS: Diagnosis Discharge Diagnosis (1) Visual changes: Start date: 01/10/20 Start time: 11:06 Status: Acute Asessment and Plan: History of occular migiraines concern for this one as it was worse than usual, MRI/MRA negative for infarct, hemhorrage. It was revealing for tiny calcification versus heosiderin deposit. 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 Given not previously on ASA will start with 81 mg daily and statin, do not feel this patient needs dual platelet at this time as she has not been on asa therapy prior to admission. Follow up with neurology. Discharge Plan Disposition Patient Disposition: HOME Condition: Improving Discharge Details Chief Complaint: Headache Clinical Impression: Transient ischemic attack Reason For Visit: YTRANSIENT DISTURBANCE IN VISION Admit Date/Time: 01/09/20 20:35 Admit Provider: Shun Rizzo Attending Provider: Shun Rizzo Primary Care Provider: Matt Pichardo ED Provider: Florentino Vasquez Hospital Course Hospital Course: 79 y.o female admitted to [facility] m/s after presenting to ED with c/o visual spells (history of silent ocular migraines) more persistent than normal. She also had nausea and vomiting. 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 Previous provider spoke with neurology at outside facility, who recommend asa, plavix and statin. She was admitted overnight on teley for further observation. Today her symptoms are resolved. She feels better. She is being discharged home. She will be started on 81 mg daily with statin, prior to admission she was not on asa, at this time it is felt asa 81 mg will sufficient with statin. Follow up with neurology when available, follow up with PCP in 1 week. Home Meds and New Rx's Prescriptions: New aspirin [Ecotrin Low Strength] 81 mg tablet,delayed release (DR/EC) 81 mg PO DAILY Qty: 60 RF: 0 atorvastatin 40 mg tablet 40 mg PO DAILY Qty: 30 RF: 0 clopidogrel [Plavix] 75 mg tablet 75 mg PO DAILY Qty: 30 RF: 0 Continued bacitracin [Bacitraycin Plus] 28 GM ointment 28 gm Topical PRN RF: 0 Neutrogena T/Fazal 133 ML shampoo 133 ml Topical PRN RF: 0 estradiol [Estrace] 42.5 GM cream 42.5 gm VG 2X week Qty: 0.5 RF: 4 clobetasol 15 GM ointment 15 gm Topical HS twice weekly Qty: 15 RF: 4 clindamycin phosphate 1 % solution 1 applic Topical DAILY PRN (Reason: scalp lesions) Qty: 30 RF: 1 acetaminophen 325 MG capsule 650 mg PO PRN PRNRF: 0 Discharge Instructions Instructions: Ocular Migraine (ED) Additional Instructions: Take Asprin 81 mg daily Take atorvastatin daily Follow up with Neurology when available. Follow up wtih PCP in one week.. Stand Alone Forms: Nursing Discharge Form Referrals: Matt Pichardo DO [Primary Care Provider] - Activity:: Activity as Tolerated Equipment/Supplies:: No Equipment Needed Diet:: As Tolerated Discharge Orders Discharge Orders: Discharge Order (Routine); Ordered 01/10/20 Ordered By: Sydney Scales DS: Summary Status at Discharge Functional status at discharge: independent ambulation Overall status at discharge: patient is back to baseline Mental Status: mental status grossly normal Speech and Movement: speech and movement normal Mood: congruent mood Affect: normal affect Exam Const General: cooperative, healthy appearing, comfortable and no acute distress HENMT Head: normal to inspection Eyes General: appearance normal, both eyes and all related structures Conjunctivae: conjunctivae normal Sclera: sclerae normal Pupils: PERRL EOM: EOM intact bilaterally Neck Neck: normal visual inspection and full ROM Carotids: normal carotid upstroke Chest Chest: normal inspection of the chest Breast inspection: normal inspection of the breasts Resp Effort & Inspection: normal respiratory effort Auscultation: clear to auscultation bilaterally Cardio Jugular venous pressure: no JVD Rate: regular rate Rhythm: regular rhythm Heart Sounds: S1 normal and S2 normal GI Inspection: normal to inspection Palpation: soft and no hepatosplenomegaly Neuro General: patient alert, patient awake and patient oriented x3 Extrem General: normal to inspection, full ROM and no clubbing, cyanosis or edema Psych Appearance: grossly normal and well kempt Mental Status: mental status grossly normal Speech and Movement: speech and movement normal Mood: congruent mood Affect: normal affect Attitude: cooperative DS: Data Vitals/I&O Vitals and I&O: Vital Signs Temperature 35.8 C L 01/10/20 07:41 Temperature Source Temporal Artery Scan 01/10/20 07:41 Pulse 63 01/10/20 07:41 Pulse Rhythm Regular 01/10/20 00:13 Pulse Strength Weak 01/09/20 13:24 Respiratory Rate 18 01/10/20 07:41 Respiratory Effort 01/10/20 00:13 Respiratory Depth Normal 01/10/20 00:13 Respiratory Pattern Normal 01/10/20 00:13 Blood Pressure 177/78 H 01/10/20 07:41 Blood Pressure Mean 110 01/09/20 13:24 Blood Pressure Position Supine 01/09/20 13:24 Pulse Oximetry 96 01/10/20 07:41 Oxygen Delivery Method Room Air 01/10/20 07:41 Oxygen Flow Rate 0 01/10/20 07:41 Pain Level 0 01/10/20 07:41 Comment 01/09/20 11:31 Intake & Output 01/09/20 01/09/20 01/10/20 11:59 23:59 11:59 Intake Total 10 / 1010 1000 / 1010 Output Total 1500 / 1500 Balance 10 / 1010 1000 / 1010 -1500 / -1500 Weight 73.119 kg 73.119 kg Intake: IV 10 / 1010 1000 / 1010 Output: Urine 1500 / 1500 Other: Urine Color Yellow Urine Appearance Clear Urine Odor Normal Voiding Methods Toilet Data Completed and Pending Pending studies at discharge: Exam(s) Addendum created by Valentino Ogden MD on 01/09/2020 5:13:43 PM EDT THIS REPORT CONTAINS FINDINGS THAT MAY BE CRITICAL TO PATIENT CARE. The findings were verbally communicated via telephone conference with Dr. Florentino Vasquez at 5:13 PM EDT on 01/09/2020. The findings were acknowledged and understood. Initial report created on 01/09/2020 4:57:40 PM EDT PROCEDURE INFORMATION: Exam: MR Head Without Contrast Exam date and time: 01/09/2020 4:45 PM Age: 79 years old Clinical indication: Dizziness and giddiness and headache and visual disturbance; Type not specified TECHNIQUE: Imaging protocol: MR of the head without contrast. Other technique: MRA is recommended to evaluate for vascular structures. COMPARISON: MR ANGIO BRAIN WO 01/09/2020 4:13 PM FINDINGS: Brain: Nonspecific T2/FLAIR hyperintensities of the periventricular and deep subcortical white matter, most likely secondary to chronic small vessel ischemic change. Small focus of susceptibility artifact in the right cerebellar hemisphere, representing either tiny calcification versus hemosiderin deposition from chronic microhemorrhage. No evidence of acute intracranial hemorrhage. No extra-axial fluid collection. No evidence of mass effect or midline shift. No restricted diffusion to suggest acute infarct. Ventricles: Prominence of the ventricles and sulci, likely attributed to parenchymal volume loss. Bones/joints: Unremarkable. Soft tissues: Unremarkable. Sinuses: Unremarkable. Mastoid air cells: No mastoid effusion. Orbits: Unremarkable. IMPRESSION: 1. No acute intracranial pathology. 2. Other chronic findings, as above. Exam(s) PROCEDURE INFORMATION: Exam: MR Head Without Contrast Exam date and time: 01/09/2020 3:46 PM Age: 79 years (approx. age) old Clinical indication: Dizziness and visual disturbance TECHNIQUE: Imaging protocol: MR of the head without contrast. 3D rendering: MIP and/or 3D reconstructed images were created by the technologist. COMPARISON: No relevant prior studies available. FINDINGS: Brain: Normal. No acute infarct. No hemorrhage. T2/FLAIR hyperintense signal abnormality in the periventricular, deep, and juxta cortical white matter is within normal limits for patient age and likely reflects sequela of chronic small vessel ischemic disease. No edema. Punctate focus of magnetic susceptibility in the right cerebellar hemisphere may represent mineralization or sequela of prior microhemorrhage. Ventricles: Normal. No ventriculomegaly. Bones/joints: Unremarkable. Soft tissues: Unremarkable. Sinuses: Normal as visualized. No acute sinusitis. Mastoid air cells: Normal as visualized. No mastoid effusion. Orbits: Unremarkable. IMPRESSION: Unremarkable MRI of the brain for patient age. COMPARISON: MR ANGIO BRAIN WO 01/09/2020 4:13 PM FINDINGS: Brain: Nonspecific T2/FLAIR hyperintensities of the periventricular and deep subcortical white matter, most likely secondary to chronic small vessel ischemic change. Small focus of susceptibility artifact in the right cerebellar hemisphere, representing either tiny calcification versus hemosiderin deposition from chronic microhemorrhage. No evidence of acute intracranial hemorrhage. No extra-axial fluid collection. No evidence of mass effect or midline shift. No restricted diffusion to suggest acute infarct. Ventricles: Prominence of the ventricles and sulci, likely attributed to parenchymal volume loss. Bones/joints: Unremarkable. Soft tissues: Unremarkable. Sinuses: Unremarkable. Mastoid air cells: No mastoid effusion. Orbits: Unremarkable. IMPRESSION: 1. No acute intracranial pathology. 2. Other chronic findings, as above. Labs on day of discharge: Labs from last 24 hours 01/09/20 01/09/20 01/09/20 21:25 11:49 11:42 WBC 7.26 RBC 4.37 Hgb 14.6 Hct 43.2 MCV 98.9 H MCH 33.4 H MCHC 33.8 RDW 13.0 Plt Count 264 MPV 9.5 Immature Gran % 0.1 Neutrophils % 56.6 Lymphocytes % 25.8 Monocytes % 12.5 Eosinophils % 4.4 Basophils % 0.6 Absolute Neutrophils 4.11 Absolute Lymphocytes 1.87 Absolute Monocytes 0.91 H Absolute Eosinophils 0.32 Absolute Basophils 0.04 ESR 12 Sodium Potassium Chloride Carbon Dioxide Anion Gap BUN Creatinine Estimated GFR/1.73 m2 Glucose Calcium Total Bilirubin AST ALT Alkaline Phosphatase Total Protein Albumin Urine Color Yellow Urine Clarity Clear Urine pH 6.0 Ur Specific [place] 1.025 Urine Protein Negative Urine Ketones Negative Urine Blood Trace-intact H Urine Nitrite Negative Urine Bilirubin Negative Urine Urobilinogen 0.2 Ur Leukocyte Esterase Negative Urine RBC 0-2 Urine WBC 0-2 Ur Epithelial Cells Rare Urine Crystals Negative Urine Bacteria Negative Urine Casts Negative Urine Mucus Negative Ur Culture Indicated? No Urine Glucose Negative 01/09/20 11:42 WBC RBC Hgb Hct MCV MCH MCHC RDW Plt Count MPV Immature Gran % Neutrophils % Lymphocytes % Monocytes % Eosinophils % Basophils % Absolute Neutrophils Absolute Lymphocytes Absolute Monocytes Absolute Eosinophils Absolute Basophils ESR Sodium 140 Potassium 4.5 Chloride 104 Carbon Dioxide 25.8 Anion Gap 10.2 BUN 18 Creatinine 1.16 H Estimated GFR/1.73 m2 45.30 Glucose 95 Calcium 9.1 Total Bilirubin 0.4 AST 22 ALT 21 Alkaline Phosphatase 68 Total Protein 7.3 Albumin 4.0 Urine Color Urine Clarity Urine pH Ur Specific [place] Urine Protein Urine Ketones Urine Blood Urine Nitrite Urine Bilirubin Urine Urobilinogen Ur Leukocyte Esterase Urine RBC Urine WBC Ur Epithelial Cells Urine Crystals Urine Bacteria Urine Casts Urine Mucus Ur Culture Indicated? 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 Irritable bowel syndrome with constipation (Chronic 08/14/17) 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) Palliative care patient (Acute) Postmenopausal atrophic vaginitis (Chronic 01/20/15) 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) Pruritus (Chronic 08/14/17) Pseudophakia of both eyes (Chronic 08/14/17) 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 Maternal Grandmother Breast cancer Maternal Aunt Breast cancer Maternal Aunt Breast cancer MS (multiple sclerosis) Maternal Aunt Breast cancer Maternal Aunt Breast cancer Daughter No problems noted. 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 Pets and animals: No Current gender identity: female What is your relationship status?: How often do you talk on the phone with friends or family?: three or more times per week How often do you get together with friends or relatives?: twice per week Panel score (0-1 are the most socially isolated patients): 1 What type of physical activity do you participate in: walking, bicycling and swimming Duration: 30-45 minutes/day Frequency: 3-4 times per week Special allegra needs: No Seatbelt use: always 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 She's been suffering with grief since then. Trying to get out with friends. Staying physically active: walking and swimming in the winter. Will return to biking in the summer. Not close to her family members of origin or to her only daughter. I'm a loner.
--- NOTE | 2020-01-10 16:40 | NT_ITS ---
Date of service: 01/10/20 PT Notes Visit Reasons: YTRANSIENT DISTURBANCE IN VISION Referral for education and training for exercise recommendations for B lower extremities was sent on 01/10/2020 but patient was discharged same day. No skilled services were provided. Thank you very much for this referral. Dawn Valdez PT, DPT, CLT [facility] Inpatient PT at [facility]
== END 2020-01-10 12:43 | disposition home or self-care (01) ==
LOC: ER 20:15 → MS 21:48
PROVIDERS: Registered Nurse Emergency; Admitting Provider General Practice; Emergency Provider Student in an Organized Health Care Education/Training Program; PCP Family Medicine; Visit Provider Family Medicine
DX: G45.9 Transient cerebral ischemic attack, unspecified (principal); H53.143 Visual discomfort, bilateral; N18.3 Chronic kidney disease, stage 3 (moderate)
CPT/HCPCS: 36415; 70544; 70547; 80053; 85652; 93005; 99222; 99239; 99285; 70450; 70551; 81003; 81015; 85025; 93010; 99217; 99218; G0378

== ENCOUNTER 2020-01-18 02:51 | Emergency (ER) | payer MEDICARE, SELFPAY ==
[2020-01-18] VITALS (17 sets, daily range): BP systolic 120–192; BP diastolic 75–114; PULSE 67–122; RESP 13–22; TEMP 36.8; O2SAT 93–97
--- NOTE | 2020-01-18 02:45 | DI.CT_ITS ---
EXAM: CT HEAD WO CLINICAL HISTORY: headache. TECHNIQUE: Imaging Protocol: Axial computed tomography images with coronal and sagittal reformatted images were created and reviewed COMPARISON: CT HEAD WO from 01/09/2020 FINDINGS: Ventricles and Extra axial spaces: Mild age related cerebral atrophy. Hemorrhage: None. Cerebral parenchyma: There are areas of decreased attenuation in the white matter consistent with sma ll vessel ischemic disease. No acute territorial infarct is seen. Midline shift: None. Brainstem/Cerebellum: Normal. Calvarium: Normal. Visualized Paranasal sinuses/Mastoids: No fluid levels are present. Soft Tissues: Unremarkable. IMPRESSION: No acute intracranial process. RADIATION DOSE DELIVERED: Total DLP DATA REPOSITORY: All CT scans at this facility are submitted to the National Radiology Data Registry (NRDR) Dose Index Registry (DIR) with the [employer] (ACR). RADIATION OPTIMIZATION: All CT scans at this facility use at least one of these dose optimization te chniques: automated exposure control; mA and/or kV adjustment per patient size (includes targeted exa ms where dose is matched to clinical indication); or iterative reconstruction.
--- NOTE | 2020-01-18 02:45 | DI.RAD_ITS ---
EXAM: XR CHEST 2V PA LATERAL CLINICAL HISTORY: chest pain TECHNIQUE: 2D digital imaging was performed. COMPARISON: CHEST 2 VIEWS PA,LAT from 10/01/2017 FINDINGS: MEDIASTINUM: Normal. HEART: Normal. PULMONARY VASCULATURE: Normal. LUNGS: No focal consolidating infiltrates. PLEURAL SPACE: No pleural effusion or pneumothorax. BONE:Degenerative changes are present. OTHER FINDINGS:Normal. IMPRESSION: No acute pulmonary findings. DATA REPOSITORY: RADIATION DOSE DELIVERED:
--- NOTE | 2020-01-18 02:57 | ED.GENADUL_ITS ---
Discharge Plan Disposition Patient Disposition: HOME Condition: Stable Discharge Details Chief Complaint: GenMedical Clinical Impression: Headache, Tingling of right upper extremity, Atrial flutter, Atrial fibrillation Primary Care Provider: Matt Pichardo ED Provider: Naveed Nguyễn Home Meds and New Rx's Prescriptions: New metoprolol succinate 50 mg tablet extended release 24 hr 50 mg PO DAILY Qty: 30 RF: 0 Continued atorvastatin 10 mg tablet 10 mg PO QHS Qty: 90 RF: 1 bacitracin [Bacitraycin Plus] 28 GM ointment 28 gm Topical PRN RF: 0 Neutrogena T/Fazal 133 ML shampoo 133 ml Topical PRN RF: 0 estradiol [Estrace] 42.5 GM cream 42.5 gm VG 2X week Qty: 0.5 RF: 4 clobetasol 15 GM ointment 15 gm Topical HS twice weekly Qty: 15 RF: 4 clindamycin phosphate 1 % solution 1 applic Topical DAILY PRN (Reason: scalp lesions) Qty: 30 RF: 1 acetaminophen 325 MG capsule 650 mg PO PRN PRNRF: 0 aspirin [Ecotrin Low Strength] 81 mg tablet,delayed release (DR/EC) 81 mg PO DAILY Qty: 60 RF: 0 atorvastatin 40 mg tablet 40 mg PO DAILY Qty: 30 RF: 0 clopidogrel [Plavix] 75 mg tablet 75 mg PO DAILY Qty: 30 RF: 0 atorvastatin 40 mg tablet 40 mg PO QPM Qty: 14 RF: 0 aspirin 81 mg tablet,delayed release (DR/EC) 81 mg PO DAILY Qty: 14 RF: 0 Discharge Instructions Instructions: Atrial Flutter (ED), A-fib (Atrial Fibrillation) (ED) Additional Instructions: follow up with your primary care provider within 1 week and discuss starting anticoagulation if you feel more ill, have weakness or more pain or difficulty breathing return to the emergency department Medical Decision Making 79 yo female with hx of migraines, recent admission for visual changes thoght possibly due to TIA and was started on atorvastatin and asa, no cardiaac history, comes in after she went to bed yesterday feeling well then woke up at 1am feeling some tingling in her right arm and a headache. She states the headache is not the worst of her life and feels somewhat similar to her prior migraines that she would normally take tylenol for. She called ems and on arrival she is in no distress speaking in full sentences. Denies weakness, chest pain/pressure abd pain, fevers, cough. She has no focal neuro deficits, CN II- XII are intact and NIH of 0. Doubt cva and given last known normal of over 4.5 horus ago not lytic candidate. Given her headache will obtain ct head to eval for ich, doesn't sound typical of sah and no infectious symptoms to suggest tester waste disposal leakage infection. She is noted to be in aflutter which is a new diagnosis for her, rates ranging from 90-120 which could be the cause of her symptoms. Given no chest pain or pressure doubt acs but given age and right arm numbness/tingling will obtain troponin. No evidence of dvt on exam and no hypoxia or pleuritic pain so doubt PE. No tearing back pain and normal vascular exam so doubt dissection xray ct and labs unremarkable, remains in aflutter/fib. She did have rates sustained over 100 for 10 minutes so IV metoprolol 2.5mg given and rates now in the 80's, will give oral metoprolol. Discussed admission vs deltra troponin and given her recent admission and desire to go home she would like to have delta troponin after discussion of risks/benefits and has capacity to make her own decisions and she will also discuss anticoagulation with her pcp second troponin negative and remains stable, in afib with rate of 80 and no chest pain or other symptoms currently. Will d/c home Differential Diagnosis Differential Diagnosis: electrolyte abnormality, nstemi, aflutter, tia/cva Medical Records Medical records reviewed: Yes I reviewed the patient's medical records. Imaging Data Radiologic Study: Attestation: I personally reviewed and interpreted this imaging study as follows: Imaging: CT Scan Radiologist's impression: no acute findings Radiologic Study #2: Attestation: I personally reviewed and interpreted this imaging study as follows: Imaging: X-Ray Radiologist's impression: no acute findings Lab Data Lab results reviewed: Yes I reviewed the patient's lab results. ECG Data Attestation: I personally reviewed and interpreted this ECG (s) as follows: Prior ECG tracings: not available for review Interpretation: aflutter, rate of 101, qtc 454, no acute st t wave ischemic findings afib, rate of 74, qtc 439, no acute st t wave ischemic changes HPI General Mode of arrival: EMS . Date/Time Provider Initiated Documentation: 01/18/20 02:57 . Limitations to Documentation: no limitations . Information obtained by: patient . History of Present Illness 79 year old F presents to the emergency department with the chief complaint of right arm tingling, described as moderate, Patient started experiencing this hour(s) (2) and it has been constant. No relieving factors improve symptom(s), No exacerbating factors reported . Patient did receive the following treatments prior to arrival, none Related Data Home Medications Medication Instructions Recorded Confirmed Neutrogena T/Fazal 133 ml TOPICAL PRN script 01/20/15 01/18/20 bacitracin [Bacitraycin Plus] 28 gm TOPICAL PRN 01/20/15 01/18/20 clobetasol 15 gm TOPICAL HS twice weekly #15 08/07/16 01/18/20 gm estradiol [Estrace] 42.5 gm VG 2X week #0.5 mg 08/07/16 01/18/20 acetaminophen 650 mg PO PRN PRN 11/28/16 01/18/20 clindamycin phosphate 1 % topical 1 applic TOPICAL DAILY PRN #30 ml 11/21/19 01/18/20 solution aspirin [Ecotrin Low Strength] 81 mg PO DAILY #60 tab 01/09/20 01/18/20 atorvastatin 40 mg PO DAILY #30 tab 01/09/20 01/18/20 clopidogrel [Plavix] 75 mg PO DAILY #30 tab 01/09/20 01/18/20 aspirin 81 mg PO DAILY #14 tab 01/10/20 01/18/20 atorvastatin 40 mg PO QPM #14 tab 01/10/20 01/18/20 atorvastatin 10 mg tablet 10 mg PO QHS #90 tab 01/15/20 01/18/20 metoprolol succinate 50 mg PO DAILY #30 tab 01/18/20 Previous Rx's Medication Instructions Recorded clindamycin phosphate 1 % topical 1 applic TOPICAL DAILY PRN #30 ml 11/21/19 solution aspirin [Ecotrin Low Strength] 81 mg PO DAILY #60 tab 01/09/20 atorvastatin 40 mg PO DAILY #30 tab 01/09/20 clopidogrel [Plavix] 75 mg PO DAILY #30 tab 01/09/20 aspirin 81 mg PO DAILY #14 tab 01/10/20 atorvastatin 40 mg PO QPM #14 tab 01/10/20 atorvastatin 10 mg tablet 10 mg PO QHS #90 tab 01/15/20 metoprolol succinate 50 mg PO DAILY #30 tab 01/18/20 Allergies Allergy/AdvReac Type Severity Reaction Status Date / Time Penicillins Allergy Severe Anaphylaxis Verified 01/18/20 02:54 amoxicillin Allergy Intermediate Rash Verified 01/18/20 02:54 latex Allergy Intermediate blisters, Verified 01/18/20 02:54 skin rash methotrexate Allergy Intermediate Rash Verified 01/18/20 02:54 azithromycin AdvReac Severe Severe Verified 01/18/20 02:54 nausea clindamycin AdvReac Intermediate diarrhea Verified 01/18/20 02:54 codeine AdvReac Intermediate does not Verified 01/18/20 02:54 work for her NSAIDS (Non-Steroidal AdvReac Intermediate Difficulty Verified 01/18/20 02:54 Anti-Inflamma with Vision onion AdvReac Intermediate Diarrhea Verified 01/18/20 02:54 General Stated Complaint: GenMedical JUNAID: 3 Review of Systems All systems reviewed & are unremarkable except as noted in HPI and below Constitutional Constitutional: Denies chills, Denies fever(s) and Denies weakness Cardiovascular Cardiovascular: Denies dyspnea Respiratory Respiratory: Denies cough and Denies dyspnea Gastrointestinal Gastrointestinal: Denies abdominal pain, Denies nausea and Denies vomiting Musculoskeletal Musculoskeletal: Denies joint swelling Neurologic Neurologic: Denies weakness Endocrine Endocrine: Denies heat intolerance [facility] Social History Smoking/Tobacco Use Status: Never Alcohol Intake: never Drug use: Never Substance use type: does not use Caregiver/Support person: No Household members: none Housing: house Number of Children: 1 number of grandchildren: 2 Communication Needs: Corrective Lenses Education Level: college Do you need help understanding health information?: Often 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; 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 Pets and animals: No Current gender identity: female What is your relationship status?: How often do you talk on the phone with friends or family?: three or more times per week How often do you get together with friends or relatives?: twice per week Panel score (0-1 are the most socially isolated patients): 1 What type of physical activity do you participate in: walking, bicycling and swimming Duration: 30-45 minutes/day Frequency: 3-4 times per week Special allegra needs: No Seatbelt use: always Drive intox or ride w/intox 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 She's been suffering with grief since then. Trying to get out with friends. Staying physically active: walking and swimming in the winter. Will return to biking in the summer. Not close to her family members of origin or to her only daughter. I'm a loner. Exam Const General: no acute distress Orientation: alert HENMT Head: normal to inspection Ears: external ears normal General nose exam: external nose normal Mouth: moist mucous membranes Eyes General: appearance normal, both eyes and all related structures Neck Neck: normal visual inspection Resp Effort & Inspection: normal respiratory effort and able to speak in complete sentences Cardio Rate: other Skin General skin exam: no rashes or lesions noted Neuro General: patient alert and patient oriented x3 Extrem General: normal to inspection Psych Mental Status: mental status grossly normal Course Vital Signs Vital signs: Vital Signs Temperature 36.8 C 01/18/20 02:51 Pulse 103 H 01/18/20 02:51 Respiratory Rate 18 01/18/20 02:51 Blood Pressure 192/114 H 01/18/20 02:51 Pulse Oximetry 97 01/18/20 02:51 Temperature 36.8 C 01/18/20 02:51 Temperature Source Temporal Artery Scan 01/18/20 02:51 Pulse 103 H 01/18/20 02:51 Respiratory Rate 18 01/18/20 02:54 Respiratory Effort Non-Labored 01/18/20 02:54 Respiratory Depth Normal 01/18/20 02:54 Respiratory Pattern Normal 01/18/20 02:54 Blood Pressure 192/114 H 01/18/20 02:51 Blood Pressure Position Sitting 01/18/20 02:51 Pulse Oximetry 97 01/18/20 02:51 Oxygen Delivery Method Room Air 01/18/20 02:51 Oxygen Flow Rate 0 01/18/20 02:51 Pain Level 4 01/18/20 02:51
[2020-01-18 02:59] LABS: Abs Immature Grans 0.02 k/cumm (0.0-0.09); Absolute Basophil Count 0.02 k/cumm (0.0-0.2); Absolute Neutrophil Count 3.42 k/cumm (1.2-6.7); Basophils % 0.2; Eosinophils % 7.4; HCT 44.1 % (36.0-46.0); HGB 15.4 g/dL (12.0-15.5); Immature Grans % 0.2 %; Lymphocytes % 34.7; Mean Corp. HGB Concentration 34.9 g/dL (32.0-36.0); Mean Corpuscular Hemoglobin 33.8 pg (27.0-33.0); Mean Corpuscular Volume 96.7 fL (80-95); Mean Platelet Volume 9.6 fL (8.0-11.0); Monocytes % 14.9; Neutrophils % 42.6; Platelet Count 272 x1000/uL (130-400); RBC 4.56 m/cumm (4.00-5.20); RBC Distribution Width 12.6 % (11.7-14.6); White Blood Cell Count 8.06 k/cumm (4.4-10.8)
[2020-01-18] MEDS: Acetaminophen 500 MG TAB 1000 MG PO (03:07)
[2020-01-18 03:15] LABS: PTT Activated 23.3 sec (21.0-31.4); Prothrombin Time 9.9 sec (9.3-11.0)
[2020-01-18 03:25] LABS: ALT 21 U/L (14-59); AST 22 U/L (15-37); Albumin 4.1 g/dL (3.4-5.0); Alkaline Phosphatase 95 U/L (46-116); Anion Gap 1.9 mmol/L (3-11); BUN 25 mg/dL (7-18); Bilirubin, Total 0.3 mg/dL (0.2-1.0); CO2 27.1 mmol/L (21.0-32.0); CREATININE 1.21 mg/dL (0.55-1.02); Calcium 9.1 mg/dL (8.5-10.1); Chloride 103 mmol/L (98-107); Estimated GFR 43.15 (mL/min/1.73m2); Glucose 85 mg/dL (74-106); Magnesium 2.2 mg/dL (1.8-2.4); Potassium 3.8 mmol/L (3.5-5.1); Sodium 132 mmol/L (136-145); Total Protein 7.6 g/dL (6.4-8.2); Troponin I < 0.05 ng/Ml (<0.06)
--- NOTE | 2020-01-18 03:27 | DI.VRAD_ITS ---
PROCEDURE INFORMATION: Exam: CT Head Without Contrast Exam date and time: 01/18/2020 2:53 AM Age: 79 years old Clinical indication: Pain; Headache not specified TECHNIQUE: Imaging protocol: Computed tomography of the head without contrast. Other technique: STROKE PROTOCOL was implemented. COMPARISON: CT HEAD WO 01/09/2020 12:31 PM FINDINGS: Brain: Mild white matter disease No hemorrhage.Mild volume loss. No mass effect. Ventricles: Normal. No ventriculomegaly. Bones/joints: Unremarkable. No acute fracture. Sinuses: Visualized sinuses are unremarkable. No fluid levels. Mastoid air cells: Visualized mastoid air cells are well aerated. Soft tissues: Unremarkable. IMPRESSION: No acute intracranial abnormality. ASSESSMENT: ASPECTS (Cassandra Stroke Program Early CT Score) is 10. Dictated and Authenticated by: Del Hermosillo MD. Ordering:LAYLA Lucio MD
--- NOTE | 2020-01-18 03:32 | DI.VRAD_ITS ---
PROCEDURE INFORMATION: Exam: XR Chest, 2 Views Exam date and time: 01/18/2020 3:16 AM Age: 79 years old Clinical indication: Chest pain TECHNIQUE: Imaging protocol: XR of the chest Views: 2 views. COMPARISON: No relevant prior studies available. FINDINGS: Lungs: Mild chronic interstitial prominence. No consolidation. Pleural space: No pleural effusion. No pneumothorax. Heart/Mediastinum: Tortuous aorta. No cardiomegaly. Bones/joints: Unremarkable. IMPRESSION: No acute findings. Dictated and Authenticated by: Del Hermosillo MD. Ordering:LAYLA Lucio MD
[2020-01-18] MEDS: Metoprolol 5 MG/5 ML VIAL 2.5 MG IVP (03:36)
[2020-01-18] MEDS: Normal Saline Flush 10 ML SYR IVP (03:37)
[2020-01-18] MEDS: Metoprolol CR 50 MG TABCR PO (03:50)
[2020-01-18 05:53] LABS: Troponin I < 0.05 ng/Ml (<0.06)
== END 2020-01-18 06:25 | disposition home or self-care (01) ==
PROVIDERS: Emergency Provider Emergency Medicine; PCP Family Medicine
DX: R51 Headache (principal); I48.91 Unspecified atrial fibrillation; I48.92 Unspecified atrial flutter; R20.2 Paresthesia of skin
CPT/HCPCS: 80053; 93005; 96374; 99285; 70450; 71046; 83735; 84484; 85025; 85610; 85730; 93010; 99284

== ENCOUNTER → 2020-01-28 12:46 | Outpatient (BNVA) | payer MEDICARE, SELFPAY | PROVIDERS: PCP Student in an Organized Health Care Education/Training Program; Referring Provider Student in an Organized Health Care Education/Training Program; Visit Provider Surgery | DX: S30.0XXA Contusion of lower back and pelvis, initial encounter (principal); W19.XXXA Unspecified fall, initial encounter | CPT/HCPCS: 10140; 99202; 99214 ==

== ENCOUNTER 2020-01-28 15:19 | Outpatient (REF) | payer MEDICARE, SELFPAY | END 2020-01-28 15:39 | LOC: LBN 15:19 | PROVIDERS: PCP Student in an Organized Health Care Education/Training Program; Visit Provider Surgery | DX: R69 Illness, unspecified (principal) ==

== ENCOUNTER → 2020-02-04 13:13 | Outpatient (BNVA) | payer MEDICARE, SELFPAY | PROVIDERS: PCP Student in an Organized Health Care Education/Training Program; Referring Provider Student in an Organized Health Care Education/Training Program; Visit Provider Surgery | DX: S30.0XXD Contusion of lower back and pelvis, subsequent encounter (principal); X58.XXXD Exposure to other specified factors, subsequent encounter | CPT/HCPCS: 99211 ==

== ENCOUNTER 2020-03-01 04:29 | Outpatient (CLI) | payer MEDICARE, SELFPAY ==
[2020-03-01 09:10] LABS: Calculated LDL 87 mg/dL (<100); Cholesterol 186 mg/dL (<200); HDL Cholesterol 81 mg/dL (40-60); Triglyceride 94 mg/dL (<150)
== END 2020-03-01 04:49 ==
PROVIDERS: PCP Student in an Organized Health Care Education/Training Program; Visit Provider Student in an Organized Health Care Education/Training Program
DX: G45.9 Transient cerebral ischemic attack, unspecified (principal)
CPT/HCPCS: 36415; 80061

== ENCOUNTER 2020-03-06 07:55 | Emergency (ER) | payer MEDICARE, SELFPAY ==
[2020-03-06] VITALS (35 sets, daily range): BP systolic 119–187; BP diastolic 72–108; PULSE 53–70; RESP 8–20; TEMP 36.7–36.8; O2SAT 96–100
--- NOTE | 2020-03-06 08:00 | DI.RAD_ITS ---
EXAM: XR CHEST 2V PA LATERAL CLINICAL HISTORY: weak and SOB TECHNIQUE: 2D digital imaging was performed. COMPARISON: CR,XR XR CHEST 2V PA LATERAL from 01/18/2020 FINDINGS: MEDIASTINUM: Normal. HEART: Normal. PULMONARY VASCULATURE: Normal. LUNGS: Mild fibrotic changes. PLEURAL SPACE: No pleural effusion or pneumothorax. BONE:Degenerative disc changes in the thoracic spine. IMPRESSION: No acute pulmonary findings. DATA REPOSITORY: RADIATION DOSE DELIVERED:
--- NOTE | 2020-03-06 08:03 | ED.GENADUL_ITS ---
Discharge Plan Disposition Patient Disposition: HOME Condition: Good Discharge Details Chief Complaint: Allergic Clinical Impression: Allergic reaction to drug, Episodic lightheadedness Primary Care Provider: Lexi Rodriguez ED Provider: Marta Bolaños Home Meds and New Rx's Prescriptions: Continued bacitracin [Bacitraycin Plus] 28 GM ointment 28 gm Topical PRN RF: 0 Neutrogena T/Fazal 133 ML shampoo 133 ml Topical PRN RF: 0 estradiol [Estrace] 42.5 GM cream 42.5 gm VG 2X week Qty: 0.5 RF: 4 clobetasol 15 GM ointment 15 gm Topical HS twice weekly Qty: 15 RF: 4 clindamycin phosphate 1 % solution 1 applic Topical DAILY PRN (Reason: scalp lesions) Qty: 30 RF: 1 metoprolol tartrate 25 mg tablet 12.5 mg PO DAILY RF: 0 acetaminophen 325 MG capsule 650 mg PO PRN PRNRF: 0 aspirin [Ecotrin Low Strength] 81 mg tablet,delayed release (DR/EC) 81 mg PO DAILY Qty: 60 RF: 0 Discharge Instructions Instructions: General Allergic Reaction (ED) Additional Instructions: Encourage water intake. Please continue with your taper of metoprolol. Please go to 12.5 mg every other day. Please contact cardiology and primary care on Sunday to discuss current symptoms and difficulty with the metoprolol. You may use hydrocortisone cream on the problem areas of your knees and elbows. I would like for you to be evaluated by primary care this week. Please change positions such as going from a laying down to a sitting up position slowly. If you develop fever/chills, pain, syncopal episode or new/worsening symptom please seek care urgently once again. Referrals: Lexi Rodriguez DO [Primary Care Provider] - Discharge Data Discharge Date/Time-TO BE ENTERED AT DEPARTURE: 03/06/20 11:05 Medical Decision Making Patient is a pleasant 79-year-old female presenting today with chief complaint of rash. She reports that rash began approximately 1 month ago. Attributes this to be getting metoprolol. Patient states that she is also been experiencing some lightheadedness particularly when going from laying to sitting position. Denies any syncopal episode. Reports that this did occur last night. She denies any shortness of breath, chest pain. No abdominal pain. No nausea, vomiting or diarrhea. She reports that this lightheadedness has been since starting the metoprolol as well that this seems to have gotten worse. Patient has been admitted recently with extensive work-ups. Patient was diagnosed with atrial fibrillation which was thought to be associated with large increase in stress and discomfort from a hematoma and a concussion that she suffered previously. Patient has been seen by cardiology. They have ordered outpatient work-up including stress test, echo and Holter monitor. She reports that these have not been ordered as of yet and is waiting to hear back. She reports she is also been being followed by neurology as there is question if she may have suffered a TIA. She reports that the neurologist that saw her at [facility] felt that the area of stenosis noted on MR was more likely due to position and did not feel that the patient had evidence of CVA or TIA. Patient denies any focal areas of weakness. No headache. No visual changes. EKG was reviewed by Dr. Cho. Patient is in a sinus bradycardia with a rate of 59. RSR prime is again noted compared to previous but no acute ischemic changes or other abnormalities noted at this time. Patient's primary concern at this time is this rash that has persisted over the past month which she attributes to beginning metoprolol. She reports she has been weaning herself off the metoprolol. This could be contributing to her generalized weakness particularly seems to be orthostatic in nature. Patient is monitoring change shortness of breath, no pleuritic pain. Vital signs are not consistent with pulmonary embolism. She not had any chest pain, doubt ACS. Patient has had a multitude of work-ups, particularly MRI for potential CVA which per neurology was not significant. See no focal percent on physical exam today. No evidence at this point for TIA or CVA. Considered dehydration as well as electrolyte abnormality given the length of her symptoms as well as changing medications. Also considered infectious Etiology versus other labs reviewed. Chest x-ray reviewed by radiologist: FINDINGS: Lungs: Stable mild chronic interstitial prominence. No consolidation. Pleural space: Unremarkable. No pleural effusion. No pneumothorax. Heart/Mediastinum: Unremarkable. No cardiomegaly. Bones/joints: Unremarkable. IMPRESSION: No acute findings. No leukocytosis. Patient's not anemic. Coags are normal. Chemistry significant for creatinine of 1.32, this is slightly elevated from baseline of 1.21. She is taking an oral hydration receiving rehydration here. No electrolyte abnormalities. Troponin remains less than 0.05. Given the length of her symptoms, I do not feel that repeat is warranted at this point. TSH within normal limits. Urine without suggestion of infection. Concerned that many of these symptoms are associated with metoprolol. Consulted with pharmacist regarding the patient's current weaning regimen. Patient has been weaning herself and is currently at 12.5 daily. She reports that she has been at this dosing for the past 2 weeks. Pharmacist advised going to every other day dosing while continuing to wean off of this. We did discuss the patient would likely have to be transition to another medication but as she developed a rash that she associates with the medication, they feel that weaning off of this is appropriate at this time. She will contact her primary care as well as cardiology on Sunday to schedule follow-up appointment. She was given strict return precautions. All of her questions and concerns were addressed and she is in agreement this plan. HPI General Mode of arrival: wheelchair . Date/Time Provider Initiated Documentation: 03/06/20 08:03 . Limitations to Documentation: no limitations . Information obtained by: patient, RN notes reviewed and old records reviewed . HPI Narrative: Patient is a pleasant 79-year-old female presenting today with chief complaint of rash, exertional shortness of breath and lightheadedness when sitting up from a supine position. She reports that the rash began over a month ago. She correlates this is when she began metoprolol. Indicates a fine, raised rash on the flexor surfaces of her elbows and knees. She feels that this is worsened. She states that she did contact her primary care provider this morning who advised to be Benadryl and topical anti-itch relief. She states that she was on her way to pick these up when she started feeling worse while driving. States that she was feeling weak in the car. Describes generalized weakness. States that she has been having this sensation that has progressively been increasing since beginning the metoprolol as well. She denies any fevers or chills. No cough. Is not having any shortness of breath when at rest. States that shortness of breath can come on when she is exerting herself. Has not had any palpitations. No back pain. No nausea vomiting. No change in bowel or bladder habits. Has not tried any relief measures for her rash. Related Data Home Medications Medication Instructions Recorded Confirmed Jennifer Osullivan/Fazal 133 ml TOPICAL PRN script 01/20/15 03/06/20 bacitracin [Bacitraycin Plus] 28 gm TOPICAL PRN 01/20/15 03/06/20 clobetasol 15 gm TOPICAL HS twice weekly #15 08/07/16 03/06/20 gm estradiol [Estrace] 42.5 gm VG 2X week #0.5 mg 08/07/16 03/06/20 acetaminophen 650 mg PO PRN PRN 11/28/16 03/06/20 clindamycin phosphate 1 % topical 1 applic TOPICAL DAILY PRN #30 ml 11/21/19 03/06/20 solution aspirin [Ecotrin Low Strength] 81 mg PO DAILY #60 tab 01/09/20 03/06/20 metoprolol tartrate 12.5 mg PO DAILY 03/06/20 Previous Rx's Medication Instructions Recorded clindamycin phosphate 1 % topical 1 applic TOPICAL DAILY PRN #30 ml 11/21/19 solution aspirin [Ecotrin Low Strength] 81 mg PO DAILY #60 tab 01/09/20 Allergies Allergy/AdvReac Type Severity Reaction Status Date / Time Penicillins Allergy Severe Anaphylaxis Verified 03/06/20 08:13 amoxicillin Allergy Intermediate Rash Verified 03/06/20 08:13 latex Allergy Intermediate blisters, Verified 03/06/20 08:13 skin rash methotrexate Allergy Intermediate Rash Verified 03/06/20 08:13 azithromycin AdvReac Severe Severe Verified 03/06/20 08:13 nausea clindamycin AdvReac Intermediate diarrhea Verified 03/06/20 08:13 codeine AdvReac Intermediate does not Verified 03/06/20 08:13 work for her NSAIDS (Non-Steroidal AdvReac Intermediate Difficulty Verified 03/06/20 08:13 Anti-Inflamma with Vision onion AdvReac Intermediate Diarrhea Verified 03/06/20 08:13 General JUNAID: 3 Review of Systems Constitutional Constitutional: Reports as per HPI, Denies chills, Denies fever(s), Denies headache(s), Denies lethargy, Denies poor appetite and Reports weakness (Generalized, particularly with exertion or when going from laying to sittin) Eyes Eyes: Denies change in vision ENT Ears, Nose, Mouth, and Throat: Denies dizziness and Denies headache(s) Cardiovascular Cardiovascular: Reports as per HPI, Denies chest pain, Denies chest pain at rest, Denies chest pain with activity, Denies leg edema, Denies radiating jaw, neck or arm pain, Denies palpitations, Denies dyspnea, Reports dyspnea on exertion and Denies orthopnea Respiratory Respiratory: Reports as per HPI, Denies chest congestion, Denies cough, Denies pain on inspiration, Denies pain with cough, Denies dyspnea, Reports dyspnea on exertion and Denies wheezing Gastrointestinal Gastrointestinal: Reports as per HPI, Denies abdominal pain, Denies diarrhea, Denies nausea and Denies vomiting Musculoskeletal Musculoskeletal: Reports as per HPI, Denies abnormal gait and Denies back pain Integumentary/Breasts Skin/Breast: Reports as per HPI, Reports rash, Denies skin pain, Denies skin swelling and Denies wounds Neurologic Neurologic: Reports as per HPI, Denies abnormal speech, Denies abnormal gait, Denies dizziness, Denies headache(s) and Reports weakness (Generalized, particularly with exertion or when going from laying to sittin) Endocrine Endocrine: Denies palpitations Allergic/Immunologic Allergic/Immunologic: Denies wheezing [facility] Social History Smoking/Tobacco Use Status: Never Alcohol Intake: never Drug use: Never Substance use type: does not use Caregiver/Support person: No Household members: none Housing: house Number of Children: 1 number of grandchildren: 2 Communication Needs: Corrective Lenses Education Level: college Do you need help understanding health information?: Often 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; 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 Pets and animals: No Current gender identity: female What is your relationship status?: How often do you talk on the phone with friends or family?: three or more times per week How often do you get together with friends or relatives?: twice per week Panel score (0-1 are the most socially isolated patients): 1 What type of physical activity do you participate in: walking, bicycling and swimming Duration: 30-45 minutes/day Frequency: 3-4 times per week Special allegra needs: No Seatbelt use: always Drive intox or ride w/intox limo driver: No Working smoke detector in home: Yes Carbon monox detector in home: Yes Do you feel safe at home: Yes Do you feel safe in your relationship?: Yes Additional Social history: Kylie May 2019 in the hospital on hospice after a prolonged illness. She's been suffering with grief since then. Trying to get out with friends. Staying physically active: walking and swimming in the winter. Will return to biking in the summer. Not close to her family members of origin or to her only daughter. I'm a loner. Exam Const General: cooperative, healthy appearing, comfortable, no acute distress and well developed Nutritional Appearance: average body habitus and well nourished Orientation: alert, awake and oriented x3 [facility] Head: normal to inspection Ears: hearing grossly normal bilaterally Mouth: moist mucous membranes Chest Chest: normal inspection of the chest, normal palpation of entire chest wall and no crepitus Resp Effort & Inspection: normal respiratory effort, able to speak in complete sentences and no respiratory distress Auscultation: clear to auscultation bilaterally, no rales, no rhonchi and no wheezes Cardio Rate: regular rate Rhythm: regular rhythm Heart Sounds: S1 normal and S2 normal GI Inspection: normal to inspection, no edema and non-distended Palpation: soft, no hepatosplenomegaly, not firm, no guarding, not rigid and nontender Auscultation: normal bowel sounds Back/Spine/Pelvis Back: no CVA tenderness Thoracic/Lumbar Spine: thoracic and lumbar spine normal to inspection Skin General skin exam: no erythema, no fluctuance and no induration Rashes: rashes noted (faint, palpable rash with small raised bumps flexor surface elbows) Neuro General: patient alert, patient awake and patient oriented x3 Cognition: normal cognition Speech: speech normal Gait: normal gait Motor: muscle tone normal throughout, strength 5/5 throughout, no pronator drift and no movement abnormalities noted Sensory Exam: no sensory deficits noted Coordination: [id number] test normal and [id number] test normal Extrem General: normal to inspection, capillary refill normal, no pedal edema, no calf tenderness and normal gait Psych Appearance: grossly normal and well kempt Mental Status: mental status grossly normal Speech and Movement: speech and movement normal
[2020-03-06] MEDS: Normal Saline 1,000 ML 125 ML IV (08:37)
[2020-03-06 08:47] LABS: Abs Immature Grans 0.01 k/cumm (0.0-0.09); Absolute Basophil Count 0.02 k/cumm (0.0-0.2); Absolute Eosinophil Count 0.52 k/cumm (0.0-0.7); Absolute Lymphocyte Count 1.31 k/cumm (1.2-3.4); Absolute Monocyte Count 0.65 k/cumm (0.11-0.7); Absolute Neutrophil Count 2.66 k/cumm (1.2-6.7); Basophils % 0.4; Eosinophils % 10.1; HCT 42.9 % (36.0-46.0); HGB 14.7 g/dL (12.0-15.5); Immature Grans % 0.2 %; Lymphocytes % 25.3; Mean Corp. HGB Concentration 34.3 g/dL (32.0-36.0); Mean Corpuscular Volume 96.4 fL (80-95); Mean Platelet Volume 9.5 fL (8.0-11.0); Monocytes % 12.6; Neutrophils % 51.4; Platelet Count 247 x1000/uL (130-400); RBC 4.45 m/cumm (4.00-5.20); RBC Distribution Width 12.8 % (11.7-14.6); White Blood Cell Count 5.17 k/cumm (4.4-10.8)
[2020-03-06 08:58] LABS: PTT Activated 23.4 sec (21.0-31.4); Prothrombin Time 10.3 sec (9.3-11.0)
[2020-03-06 09:00] LABS: ALT 25 U/L (14-59); AST 22 U/L (15-37); Alkaline Phosphatase 71 U/L (46-116); Anion Gap 8.7 mmol/L (3-11); BUN 18 mg/dL (7-18); Bilirubin, Total 0.6 mg/dL (0.2-1.0); CO2 28.3 mmol/L (21.0-32.0); CREATININE 1.32 mg/dL (0.55-1.02); Calcium 9.3 mg/dL (8.5-10.1); Chloride 105 mmol/L (98-107); Estimated GFR 39.03 (mL/min/1.73m2); Glucose 103 mg/dL (74-106); Magnesium 2.1 mg/dL (1.8-2.4); Potassium 4.4 mmol/L (3.5-5.1); Sodium 142 mmol/L (136-145); Total Protein 7.3 g/dL (6.4-8.2); Troponin I < 0.05 ng/mL (<0.06)
[2020-03-06 09:09] LABS: TSH (W/Ref FT4) 2.26 uIU/mL (0.36-3.74)
--- NOTE | 2020-03-06 09:11 | DI.VRAD_ITS ---
PROCEDURE INFORMATION: Exam: XR Chest, 2 Views Exam date and time: 03/06/2020 8:14 AM Age: 79 years old Clinical indication: Shortness of breath and other: Weak, dizzy TECHNIQUE: Imaging protocol: XR of the chest Views: 2 views. COMPARISON: CR XR CHEST 2V PA LATERAL 01/18/2020 3:15 AM FINDINGS: Lungs: Stable mild chronic interstitial prominence. No consolidation. Pleural space: Unremarkable. No pleural effusion. No pneumothorax. Heart/Mediastinum: Unremarkable. No cardiomegaly. Bones/joints: Unremarkable. IMPRESSION: No acute findings. Dictated and Authenticated by: Nathalie Turner MD. Ordering:ANNELIESE Lozano MD
[2020-03-06 09:21] LABS: Bilirubin Negative (Negative); Blood Negative (Negative); Clarity Clear (Clear); Glucose Negative (Negative); Ketones Negative (Negative); Leukocyte Esterase Negative (Negative); Nitrite Negative (Negative); Specific Gravity 1.015 (1.005-1.025); Urobilinogen 0.2 EU/dL (Up TO 0.2)
== END 2020-03-06 11:05 | disposition home or self-care (01) ==
PROVIDERS: Emergency Provider Physician Assistant; PCP Student in an Organized Health Care Education/Training Program
DX: R21 Rash and other nonspecific skin eruption (principal); R42 Dizziness and giddiness; T44.7X5A Adverse effect of beta-adrenoreceptor antagonists, initial encounter; R06.1 Stridor
CPT/HCPCS: 36415; 80053; 93005; 96360; 96361; 99285; 71046; 81003; 83735; 84443; 84484; 85025; 85610; 85730; 93010

== ENCOUNTER 2020-03-23 03:00 | Outpatient (CLI) | payer MEDICARE, SELFPAY ==
--- NOTE | 2020-04-12 08:51 | W.ZIOMONITOR ---
Date of service: 04/12/20 Time of Service: 08:51 ZIO Patch Billing And Accounting Staff Assistant Referring Provider:: Connor Indications:: Atrial fibrillation Note: This is a 2-week ZIO patch ordered for indication of atrial fibrillation. ?Patient was in normal sinus rhythm for the majority of the recording with an average heart rate of 75 bpm. ?Patient was in atrial fibrillation for a total of 9% of the recording with a heart rate ranging from 58 to 212 bpm. Average heart rate was 115 bpm while in atrial fibrillation. ?There were 62 episodes of supraventricular tachycardia with the longest lasting 18 beats. ?There were rare isolated supraventricular and ventricular ectopic beats. ?Patient triggered events were associated with atrial fibrillation, sinus rhythm as well as singular ectopic beats. ?There were no episodes of ventricular tachycardia and no pauses greater than 3 seconds.
== END 2020-03-23 03:20 ==
PROVIDERS: PCP Student in an Organized Health Care Education/Training Program; Visit Provider Student in an Organized Health Care Education/Training Program
DX: I48.91 Unspecified atrial fibrillation (principal); I47.1 Supraventricular tachycardia; I49.3 Ventricular premature depolarization
CPT/HCPCS: 0296T

== ENCOUNTER 2020-03-26 07:32 | Outpatient (CLI) | payer MEDICARE, SELFPAY | END 2020-03-26 07:52 | PROVIDERS: PCP Student in an Organized Health Care Education/Training Program; Visit Provider Internal Medicine | DX: Z11.59 Encounter for screening for other viral diseases (principal) | CPT/HCPCS: U0003 ==

== ENCOUNTER 2020-03-30 11:42 | Outpatient (CLI) | payer MEDICARE, SELFPAY ==
[2020-03-31 11:48] LABS: COVID-19 RT-PCR UVMMC Result Negative (Negative)
== END 2020-03-30 12:02 ==
PROVIDERS: PCP Student in an Organized Health Care Education/Training Program; Visit Provider Internal Medicine
DX: Z03.818 Encounter for observation for suspected exposure to other biological agents ruled out (principal)
CPT/HCPCS: U0003

== ENCOUNTER 2020-04-12 12:00 | Outpatient (CLI) | payer MEDICARE, SELFPAY | END 2020-04-12 12:20 | PROVIDERS: PCP Student in an Organized Health Care Education/Training Program; Referring Provider Student in an Organized Health Care Education/Training Program; Visit Provider Internal Medicine Cardiovascular Disease | DX: I48.91 Unspecified atrial fibrillation (principal); I47.1 Supraventricular tachycardia; I49.3 Ventricular premature depolarization | CPT/HCPCS: 0298T ==

== ENCOUNTER → 2020-06-03 09:49 | Outpatient (BNVA) | payer MEDICARE, SELFPAY | PROVIDERS: PCP Student in an Organized Health Care Education/Training Program; Referring Provider Student in an Organized Health Care Education/Training Program; Visit Provider Student in an Organized Health Care Education/Training Program | DX: S76.011D Strain of muscle, fascia and tendon of right hip, subsequent encounter (principal); S76.311D Strain of muscle, fascia and tendon of the posterior muscle group at thigh level, right thigh, subsequent encounter; W10.8XXD Fall (on) (from) other stairs and steps, subsequent encounter; M79.18 Myalgia, other site | CPT/HCPCS: 99203; 99214 ==

== ENCOUNTER 2020-06-11 03:46 | Outpatient (CLI) | payer MEDICARE, SELFPAY ==
--- NOTE | 2020-06-11 08:00 | DI.MRI_ITS ---
EXAM: MR LOWER EXTREMITY RT WO CLINICAL HISTORY: traumtic fall with probable tendon tears in glutes,RT BUTTOCK PAIN,M79.18,S. TECHNIQUE: Multiplanar multisequence MRI was performed. COMPARISON: MR MRI L LOWER JOINT WO CONT from 12/28/2015 FINDINGS: MR examination of the hip was performed according to the usual protocol. No bony signal abnormality seen involving hips or pelvis. The requisition raises the possibility gluteus tendon tear is. Today 's images show mildly abnormal signal at the attachment of the gluteus lissa suggesting a minimal t ear and tendinosis. There is small quantity of fluid in the subgluteus medius bursa and there is min imal tearing of the gluteus medius tendon attachment. There is minimally abnormal signal in gluteus minimus tendon with no significant tearing identified. Note is also made of mild tearing of gluteus medius tendon of the left hip. No other significant soft tissue injury seen. Note is made of fluid signal in the uterus, degenerating fibroid or endometrial tumor is suspected.. Additional evaluation with pelvic ultrasound recommended. IMPRESSION: Minimal tear and tendinosis of gluteus lissa attachment on the right. Fluid in sub gluteus medius bursa and minimal tear of gluteus medius tendon attachment, right. Minimal gluteus minimus tendon tendinosis, right. Mild tear and tendinosis gluteus medius tendon attachment on the left. Abnormal fluid signal in uterus, possible uterine mass. Correlation with pelvic ultrasound recommend ed. DATA REPOSITORY:
== END 2020-06-11 04:06 ==
PROVIDERS: PCP Student in an Organized Health Care Education/Training Program; Visit Provider Student in an Organized Health Care Education/Training Program
DX: S76.011A Strain of muscle, fascia and tendon of right hip, initial encounter (principal); S76.319A Strain of muscle, fascia and tendon of the posterior muscle group at thigh level, unspecified thigh, initial encounter
CPT/HCPCS: 73718

== ENCOUNTER 2020-06-29 00:36 | Outpatient (CLI) | payer MEDICARE, SELFPAY ==
--- NOTE | 2020-06-29 07:30 | DI.US_ITS ---
EXAM: US PELVIS CLINICAL HISTORY: Abnormal fluid signal in uterus, incid per MRI,UTERINE MASS,N85.8 TECHNIQUE: Ultrasound performed using standard protocol. COMPARISON: No exams were available for comparison FINDINGS: Pelvic ultrasound was performed transabdominally only. The endometrial cavity is fluid filled. Ther e is an irregular 33 x 18 x 15 millimeter in diameter anterior mass protruding into the uterine body and lower uterine segment, the findings are suggestive of an obstructing lesion, this may be of myome trial or endometrial origin. The ovaries are nonvisualized. No free fluid identified cul-de-sac. IMPRESSION: Findings consistent with uterine mass of uncertain origin with fluid occupying endometrial cavity to the level of the cervix, presumably of neoplastic origin.. Additional evaluation with MR may be considered if additional characterization is needed prior to vidal jacky. DATA REPOSITORY:
== END 2020-06-29 00:56 ==
PROVIDERS: PCP Student in an Organized Health Care Education/Training Program; Visit Provider Student in an Organized Health Care Education/Training Program
DX: N85.8 Other specified noninflammatory disorders of uterus (principal)
CPT/HCPCS: 76856

== ENCOUNTER 2020-07-16 02:28 | Outpatient (CLI) | payer MEDICARE, SELFPAY ==
[2020-07-16 10:54] LABS: Abs Immature Grans 0.02 10^3/uL (0.0-0.06); Absolute Basophil Count 0.04 10^3/uL (0.0-0.2); Absolute Eosinophil Count 0.26 10^3/uL (0.0-0.7); Absolute Lymphocyte Count 1.44 10^3/uL (1.2-3.4); Absolute Monocyte Count 0.97 10^3/uL (0.1-0.8); Absolute Neutrophil Count 5.68 10^3/uL (1.2-6.7); Basophils % 0.5; Eosinophils % 3.1; HCT 40.1 % (36.0-46.0); HGB 13.3 g/dL (11.2-15.7); Immature Grans % 0.2; Lymphocytes % 17.1; MCH 33.5 pg (27.0-33.0); MCHC 33.2 % (32.0-36.0); MPV 9.6 fL (8.0-11.0); Monocytes % 11.5; Neutrophils % 67.6; Nucleated RBC 0 %; Platelet Count 261 10^3/uL (130-400); RBC 3.97 10^6/uL (3.93-5.22); RDW 12.5 % (11.7-14.6); WBC 8.41 10^3/uL (4.4-10.8)
[2020-07-16 11:14] LABS: Anion Gap 3.6 mmol/L (3-11); CO2 29.4 mmol/L (21.0-32.0); Chloride 107 mmol/L (98-107); Potassium 4.4 mmol/L (3.5-5.1); Sodium 140 mmol/L (136-145)
== END 2020-07-16 02:48 ==
PROVIDERS: PCP Student in an Organized Health Care Education/Training Program; Visit Provider Obstetrics & Gynecology
DX: N85.8 Other specified noninflammatory disorders of uterus (principal); Z01.818 Encounter for other preprocedural examination
CPT/HCPCS: 36415; 80051; 86850; 86900; 86901; U0003; 85025

== ENCOUNTER 2020-07-16 08:03 | Outpatient (CLI) | payer MEDICARE, SELFPAY ==
[2020-07-17 12:43] LABS: COVID-19 RT-PCR Result NEGATIVE (Negative)
== END 2020-07-16 08:23 ==
PROVIDERS: PCP Student in an Organized Health Care Education/Training Program; Visit Provider Obstetrics & Gynecology
DX: Z01.818 Encounter for other preprocedural examination (principal)
CPT/HCPCS: U0003

== ENCOUNTER → 2020-08-04 12:48 | Outpatient (BNVA) | payer MEDICARE, SELFPAY | PROVIDERS: PCP Student in an Organized Health Care Education/Training Program; Referring Provider Student in an Organized Health Care Education/Training Program; Visit Provider Internal Medicine Cardiovascular Disease | DX: I48.0 Paroxysmal atrial fibrillation; Z01.810 Encounter for preprocedural cardiovascular examination; N85.8 Other specified noninflammatory disorders of uterus | CPT/HCPCS: 99203; 99214 ==

== ENCOUNTER 2020-10-22 01:52 | Outpatient (CLI) | payer MEDICARE, SELFPAY ==
[2020-10-23 13:07] LABS: COVID-19 RT-PCR UVMMC Result Negative (Negative)
== END 2020-10-22 02:12 ==
PROVIDERS: PCP Student in an Organized Health Care Education/Training Program; Visit Provider Obstetrics & Gynecology
DX: Z11.52 Encounter for screening for COVID-19 (principal); Z01.818 Encounter for other preprocedural examination
CPT/HCPCS: U0003

== ENCOUNTER 2020-10-22 01:52 | Outpatient (CLI) | payer MEDICARE, SELFPAY ==
[2020-10-22 11:11] LABS: HCT 39.8 % (36.0-46.0); HGB 13.6 g/dL (11.2-15.7); MCH 33.1 pg (27.0-33.0); MCHC 34.2 % (32.0-36.0); MCV 96.8 fL (80-95); MPV 9.5 fL (8.0-11.0); Platelet Count 259 10^3/uL (130-400); RBC 4.11 10^6/uL (3.93-5.22); RDW 12.5 % (11.7-14.6); RDW-SD 44.6 fL; WBC 6.51 10^3/uL (4.4-10.8)
== END 2020-10-22 02:12 ==
PROVIDERS: PCP Student in an Organized Health Care Education/Training Program; Visit Provider Obstetrics & Gynecology
DX: N85.8 Other specified noninflammatory disorders of uterus (principal); Z01.818 Encounter for other preprocedural examination; Z01.812 Encounter for preprocedural laboratory examination
CPT/HCPCS: 36415; 85027; 86850; 86900; 86901; U0003

== ENCOUNTER 2020-10-27 08:41 | Observation (INO) | payer MEDICARE, SELFPAY ==
[2020-10-27] VITALS (15 sets, daily range): BP systolic 82–158; BP diastolic 48–83; PULSE 60–104; RESP 14–19; TEMP 35.4–36.7; O2SAT 95–99
[2020-10-27] MEDS: Lactated Ringers 1,000 ML 125 ML IV ×3 (06:59→17:33)
--- NOTE | 2020-10-27 08:25 | ENDOMET_PTH ---
PATIENT: eKrry Mendes LOC: U#:[id number] AGE/SX: 80/F ROOM: RE10/27/[address]: Hilary Turner DO : 1940 BED: A DIS: 10/28/2020 SPEC #: [id number] RECD: 10/27/20 12:53 STATUS: SOUT REQ #: [id number] EDWARD: 10/27/20 08:[address]: Hilary Turner DEPT: Surgical Specimen RECD BY: Abigail Bentley ENTERED: 10/27/20 12:54 SP TYPE: Endomet OTHR DR: Lexi Rodriguez DO Tissues: 1 - ENDOMETRIUM BX/CURRETTE Procedures: GROSS AND MICRO LEVEL 4 Comments: [id number]
--- NOTE | 2020-10-27 08:33 | W.PM.OP ---
Date of service: 10/27/20 Time of Service: 08:33 Operative Note Operative Note DATE OF PROCEDURE: 10/27/20 PRE-OP DIAGNOSIS: Endocervical lesion and fluid-filled endometrium POST-OP DIAGNOSIS: same With cervical stenosis, hematometra PROCEDURE: Hysteroscopy with dilation curettage SURGEON: Hilary Turner ANESTHESIA: MAC ESTIMATED BLOOD LOSS: 10 PATHOLOGY: other (Endometrial curettings) COMPLICATIONS: Other (Significant cervical stenosis with endometrium) Patient was transported to: PACU Patient's condition: stable Indications: Patient had incidental finding of endocervical lesion on ultrasound with dilated endometrial cavity Findings: Marked cervical stenosis, from endometrium Procedure Description: Patient is a 80-year-old female who has had known abnormal ultrasound with fluid-filled endometrium and suspicion for Endo cervical lesion. She had evaluation for preoperative clearance by cardiology and neurology. Risk benefits and alternatives of procedure including risk of infection, bleeding, injury to surrounding organs, risk of anesthesia, risk of clotting were all explained to the patient in full informed consent was obtained. She had been taken the operating suite with an IV running where she is placed in the dorsal lithotomy position in yellowfin stirrups and prepped and draped in the usual sterile fashion. Straight catheterization was performed for approximately 200 cc of clear yellow urine. Exam under anesthesia revealed complete cervical stenosis with obliteration of the endocervical canal. Uterus is midline and mobile. There is a fullness in the uterus which is somewhat globular. Patient also has marked vulvovaginal atrophy. Pneumatic compression stockings had been placed for prevention of thromboembolism. At this point attempt was made to use a bivalve speculum, however due to cervical and vaginal stenosis this was unsuccessful. To small Margarito's were used to retract anteriorly and posteriorly and at this point what appeared to be the anterior and posterior lips of the cervix were grasped with a single-tooth tenaculum. Lacrimal duct probes were used to probe to ascertain cervical. A canal was identified which as the cervical opening was opened, marked dark brown old appearing blood spontaneously expressed from the uterus. At this point the canal was gradually dilated to the point that a 5 mm hysteroscope could be passed. With instillation of normal saline attempt is made at evaluation of the endometrial cavity, however clear cavity could not be identified. Due to poor visualization hysteroscope portion was was completed. With gentle probing of the endometrial cavity cavity was found to be smooth and regular and sounded to 4 cm. A gentle curettage of the endometrial cavity was performed for scant tissue admixed with dark old bloody fluid. At this point the single-tooth tenaculum from the anterior and posterior lip of the cervix were removed as were as were the retractors. Exam under anesthesia then performed and the globular nature of the uterus was significantly diminished. The patient returned to the dorsal supine position and woke from anesthesia with ease. Findings: Vulvovaginal atrophy. Marked cervical stenosis. Hematometra. Complications: None apparent, however poor visualization of the endometrial cavity with hysteroscope Specimens: Endocervical curetting admixed with bloody fluid EBL: Less than 10 cc
--- NOTE | 2020-10-27 11:27 | W.PM.PROGNOT ---
Date of Service Date of service: 10/27/20 Time of Service: 11:27 Assessment and Plan Assessment and plan (1) Status post dilatation and curettage: Status: Acute Assessment and plan: Monitor vital signs and pain. Pain medication and antiemetics as needed. Advance diet. Ambulate. Recheck CBC in the a.m. Anticipate discharge home after observation. Tomorrow. (2) Hematometra: Status: Acute (3) Paroxysmal atrial fibrillation: Status: Acute Subjective Subjective Patient reports: no new complaints, pain is less and voiding w/o difficulty; denies nausea, vomiting and fever Interval history since last seen: Patient is seen postoperatively upon the general medical floor. Surgical findings discussed with the patient including cervical stenosis, and significant hematometra M. This does explain some of the pelvic pressure discomfort that she has been having over the past few weeks which has been increasing. I voiced my concern to her about the difficulty of cannulating the cervical os and the potential though did not appear to be apparent risk of uterine perforation and injury to surrounding viscus. She is completely agreeable to stay overnight. We will monitor her vital signs and her pain. She will have a CBC in the morning. She is able to ambulate, eat, and void without difficulty. As of note patient also lives alone and my concern would be for need for her to return to the hospital if she was having significant issues. I would anticipate her discharge home in the morning. Exam Const General: cooperative, healthy appearing, comfortable and no acute distress Eyes General: appearance normal, both eyes and all related structures Resp Effort & Inspection: normal respiratory effort Cardio Rhythm: abnormal rhythm Objective Last Vital Signs Temp 96.4 F L 10/27/20 10:28 Pulse 64 10/27/20 10:28 Resp 16 10/27/20 10:28 BP 126/67 10/27/20 10:28 Pulse Ox 95 10/27/20 10:28
[2020-10-27] MEDS: Acetaminophen 500 MG TAB PO ×2 (12:45→16:43)
[2020-10-28 00:20] VITALS: BP 143/78; PULSE 63; RESP 16; TEMP 36.9; O2SAT 95
[2020-10-28] MEDS: Acetaminophen 500 MG TAB PO (01:13)
[2020-10-28] MEDS: Lactated Ringers 1,000 ML 125 ML IV (01:32)
[2020-10-28 04:43] VITALS: BP 151/88; PULSE 67; RESP 17; TEMP 36.9; O2SAT 93
--- NOTE | 2020-10-28 06:48 | W.PM.PROGNOT ---
Date of Service Date of service: 10/28/20 Time of Service: 06:48 Assessment and Plan Assessment and plan (1) Status post dilatation and curettage: Status: Acute Assessment and plan: Postoperative day #1 status post hysteroscopy with dilation and curettage. Patient was kept for observation due to difficult hysteroscopy with dilation and curettage, drainage of hematometra M, and observation for postoperative complications. Patient also lives alone and I felt it prudent to evaluate her and watch her here overnight. She is doing well postoperative day #1. Anticipate discharge this morning after breakfast. Will await pathology. Follow-up in the office in 2 weeks (2) Hematometra: Status: Acute Subjective Subjective Patient reports: no new complaints, tolerating liquids well, tolerating a regular diet and flatus; denies nausea, vomiting and fever Interval history since last seen: Patient seen and examined this morning. She is doing well. She has no signs or symptoms of infection. She has no pain and scant pinkish vaginal discharge. We again discussed the findings of her surgery with him endometrium and cervical stenosis. She understands to monitor for signs or symptoms of infection including pain, fever, increased discharge. Will await her morning CBC and if stable discharge to home today. Exam Const General: cooperative, healthy appearing, comfortable and no acute distress Nutritional Appearance: average body habitus Eyes General: appearance normal, both eyes and all related structures Resp Effort & Inspection: normal respiratory effort Cardio Rhythm: abnormal rhythm GI Palpation: soft, not firm and no guarding Extrem General: no clubbing, cyanosis or edema Objective Last Vital Signs Temp 98.4 F 10/28/20 04:43 Pulse 67 10/28/20 04:43 Resp 17 10/28/20 04:43 BP 151/88 H 10/28/20 04:43 Pulse Ox 93 10/28/20 04:43
--- NOTE | 2020-10-28 06:53 | W.PM.DS.N ---
Date of service: 10/28/20 Time of Service: 06:53 DS: Diagnosis Discharge Diagnosis (1) Status post dilatation and curettage: Status: Acute (2) Hematometra: Status: Acute Discharge Plan Disposition Patient Disposition: HOME Condition: Good Discharge Details Reason For Visit: POST HYSTEROSOCOPY WITH DILATIN AND CURETTAGE Admit Date/Time: 10/27/20 08:41 Admit Provider: Hilary Turner Attending Provider: Hilary Turner Primary Care Provider: Lexi Rodriguez Hospital Course Hospital Course: Patient underwent hysteroscopy with dilation curettage on 10/27/2020. Her procedure was somewhat complicated in the fact that she had significant cervical stenosis and evacuation of hematometra from. This also made it difficult to evaluate surgical plans and endometrial cavity. I felt it prudent for her to be observed overnight for signs and symptoms of infection which would include fever, unstable vital signs, or pain. She had none of these. She rested reasonably well through the night. She will be discharged home this morning with regular diet, and her regular medications. She should be seen back in the office in approximately 2 weeks time. At that point hopefully have some pathologic diagnosis. We did discuss the importance of follow-up with repeat ultrasound in approximately 2 to 3 months to evaluate for reaccumulation of fluid. Home Meds and New Rx's Prescriptions: No Action bacitracin [Bacitraycin Plus] 28 GM ointment 28 gm Topical PRN RF: 0 Neutrogena T/Fazal 133 ML shampoo 133 ml Topical PRN RF: 0 estradiol [Estrace] 42.5 GM cream 42.5 gm VG 2X week Qty: 0.5 RF: 4 clobetasol 15 GM ointment 15 gm Topical HS twice weekly Qty: 15 RF: 4 clindamycin phosphate 1 % solution 1 applic Topical DAILY PRN (Reason: scalp lesions) Qty: 30 RF: 1 acetaminophen 325 MG capsule 650 mg PO PRN PRNRF: 0 Discharge Instructions Additional Instructions: Follow-up with Dr. Turner in 2 weeks Stand Alone Forms: DSU Post Gynecology Surgery Activity:: Activity as Tolerated Equipment/Supplies:: No Equipment Needed Diet:: As Tolerated Discharge Orders Discharge Orders: Discharge Order (Routine); Ordered 10/28/20 Ordered By: Hilary Turner DS: Summary Time Spent with Patient providing and/or coordinating discharge services: Less than 30 minutes Status at Discharge Functional status at discharge: independent ambulation Overall status at discharge: patient is back to baseline Mental Status: mental status grossly normal Speech and Movement: speech and movement normal Mood: congruent mood Affect: normal affect Exam Narrative Exam Narrative: See physical examination progress note dated 10/28/2020 Psych Mental Status: mental status grossly normal Speech and Movement: speech and movement normal Mood: congruent mood Affect: normal affect DS: Data Vitals/I&O Vitals and I&O: Vital Signs Temperature 98.4 F 10/28/20 04:43 Temperature Source Skin 10/28/20 04:43 Pulse 67 10/28/20 04:43 Pulse Rhythm Regular 10/28/20 00:20 Respiratory Rate 17 10/28/20 04:43 Respiratory Effort Non-Labored 10/28/20 00:20 Respiratory Depth Normal 10/28/20 00:20 Respiratory Pattern Normal 10/28/20 00:20 Blood Pressure 151/88 H 10/28/20 04:43 Pulse Oximetry 93 10/28/20 04:43 Respiratory End-tidal CO2 33 10/27/20 09:25 Oxygen Delivery Method Room Air 10/28/20 04:43 Oxygen Flow Rate 0 10/28/20 04:43 Pain Level 0 10/28/20 04:43 Comment 10/28/20 04:43 Intake & Output 10/27/20 10/27/20 10/28/20 11:59 23:59 11:59 Intake Total 810.417 / 2219.584 1409.167 / 2219.584 1547.917 / 1547.917 Output Total 600 / 1500 900 / 1500 2475 / 2475 Balance 210.417 / 719.584 509.167 / 719.584 -927.083 / -927.083 Weight 164 lb 10.965 oz Intake: IV 810.417 / 1739.584 929.167 / 1739.584 997.917 / 997.917 Oral 480 / 480 550 / 550 Output: Urine 600 / 1500 900 / 1500 2475 / 2475 Other: Urine Color Yellow Pale Yellow Urine Appearance Clear Clear Clear Urine Odor Normal Comment pt experiencing discomfort when urinating PRN pain relief given Emesis Description None Voiding Methods Toilet Bedside Commode Toilet Data Completed and Pending Labs on day of discharge: Labs from last 24 hours 10/28/20 06:05 WBC Pending RBC Pending Hgb Pending Hct Pending MCV Pending MCH Pending MCHC Pending RDW Pending Plt Count Pending MPV Pending Immature Gran % Pending Neutrophils % Pending Lymphocytes % Pending Monocytes % Pending Eosinophils % Pending Basophils % Pending Absolute Neutrophils Pending Absolute Lymphocytes Pending Absolute Monocytes Pending Absolute Eosinophils Pending Absolute Basophils Pending PFSH Medical History A-fib Afib Chronic kidney disease (CKD) stage G3b/A1, moderately decreased glomerular filtration rate (GFR) between 30-44 mL/min/1.73 square meter and albuminuria creatinine ratio less than 30 mg/g Collapsed vertebra, not elsewhere classified, cervical region, initial encounter for fracture (12/01/16) some activities lead to pinched nerve, R-sided Grief Hematometra Insomnia Intrinsic sphincter deficiency (ISD) 11/22/17 progress note [facility] [place] [employer] Irritable bowel syndrome with constipation (08/14/17) Lichen sclerosus et atrophicus (01/20/15) Pain in buttock Hx buttock pain .. Pain is lasting beyond expectation s/p fall with serious hematoma. Hx buttoc (LFT med/min reattachment surgery years ago & recomm RT side to be reviewed in future) .. Palliative care patient Paroxysmal atrial fibrillation Postmenopausal atrophic vaginitis (01/20/15) Preoperative cardiovascular examination Primary osteoarthritis of left hip (01/07/16) Pruritus (08/14/17) Pseudophakia of both eyes (08/14/17) Right buttock pain Fall 2019; Possible Glut max/min issue as was found/repaired on left side by Dr. 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 Tendinitis involving left hip abductors (01/07/16) Tendinitis involving right hip abductors (04/12/16) Traumatic hematoma of buttock Trochanteric bursitis, left hip (05/24/16) Trochanteric bursitis, right hip (04/12/16) Urinary incontinence (08/14/17) Uterine leiomyoma (01/18/16) Uterine mass Incidental finding on Ortho MRI (05/2020): Abnormal fluid signal in uterus, possible uterine mass. Correlation with pelvic ultrasound recommended. April 2019 Surgical History facial surgery History of bladder surgery History of pubovaginal sling nerve clip 4th toe rt foot Replacement of total knee joint both knees Status post dilatation and curettage thumb surgeries both thumbs Family History Mother , 98 years Stroke Colon cancer Father Dementia Sister No problems noted. Maternal Grandmother Breast cancer Maternal Aunt Breast cancer Maternal Aunt Breast cancer MS (multiple sclerosis) Maternal Aunt Breast cancer Maternal Aunt Breast cancer Daughter No problems noted. 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 Pets and animals: No Current gender identity: female What is your relationship status?: How often do you talk on the phone with friends or family?: three or more times per week How often do you get together with friends or relatives?: twice per week Panel score (0-1 are the most socially isolated patients): 1 What type of physical activity do you participate in: walking, bicycling and swimming Duration: 30-45 minutes/day Frequency: 3-4 times per week Special allegra needs: No Seatbelt use: always Drive intox or ride w/intox 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
[2020-10-28 06:54] LABS: Abs Immature Grans 0.02 10^3/uL (0.0-0.06); Absolute Basophil Count 0.05 10^3/uL (0.0-0.2); Absolute Eosinophil Count 0.51 10^3/uL (0.0-0.7); Absolute Lymphocyte Count 1.46 10^3/uL (1.2-3.4); Absolute Monocyte Count 0.71 10^3/uL (0.1-0.8); Absolute Neutrophil Count 3.38 10^3/uL (1.2-6.7); Basophils % 0.8; Eosinophils % 8.3; HCT 39.4 % (36.0-46.0); HGB 13.2 g/dL (11.2-15.7); Immature Grans % 0.3; Lymphocytes % 23.8; MCHC 33.5 % (32.0-36.0); MCV 98.5 fL (80-95); MPV 9.4 fL (8.0-11.0); Monocytes % 11.6; Neutrophils % 55.2; Nucleated RBC 0 %; Platelet Count 240 10^3/uL (130-400); RDW 12.5 % (11.7-14.6); RDW-SD 45.4 fL; WBC 6.13 10^3/uL (4.4-10.8)
== END 2020-10-28 10:03 | disposition home or self-care (01) ==
LOC: MS 09:31
PROVIDERS: Admitting Provider Obstetrics & Gynecology; PCP Student in an Organized Health Care Education/Training Program; Visit Provider Obstetrics & Gynecology
PROC: 0UDB8ZZ Extraction of Endometrium, Via Natural or Artificial Opening Endoscopic (ICD-10-PCS; CPT 58558; principal; 2020-10-27 07:30)
DX: N85.7 Hematometra (principal); N88.2 Stricture and stenosis of cervix uteri; N95.2 Postmenopausal atrophic vaginitis; N90.5 Atrophy of vulva
CPT/HCPCS: 58558; 36415; 88305; 99231; 99232; 99238; 85025; G0378; J2001; J2405; J2704

== ENCOUNTER 2020-12-01 02:24 | Outpatient (CLI) | payer MEDICARE, SELFPAY ==
--- NOTE | 2020-12-01 08:00 | DI.US_ITS ---
EXAM: US PELVIS TRANSVAGINAL CLINICAL HISTORY: Re-check endometrial fluid collection,POSTMENOPAUSAL BLEEDING,N95.0,Z98.890. TECHNIQUE: Transabdominal and transvaginal pelvic ultrasound was performed using standard protocol. COMPARISON: US US PELVIS from 06/29/2020 FINDINGS: KIDNEYS: Kidneys are symmetric in size. No evidence of renal calculi. No evidence of hydronephrosis. No renal mass or cyst identified. UTERUS: Position: Anteverted. Size: 6.1 long by 3.4 AP by 4.6 transverse cm Endometrium: 1.2 cm. The endometrial stripe is thickened and heterogeneous and endometrial mass shoul d be considered. A 0.9 x 0.4 x 0.6 cm echogenic vascular solid lesion is seen in the cervical endome trial canal. There is a small amount of fluid in the cervical endometrial canal. Myometrium: The myometrium is heterogeneous. There do appear to be discrete hypoechoic solid masses within the myometrium which may represent fibroids. Cervix: Unremarkable. OVARIES: The right ovary was not seen transabdominally or transvaginally. Left: 2.2 x 1.8 x 1.2 cm Cyst or mass: None. CUL-DE-SAC: Free fluid: None. Other: None. IMPRESSION: 1. Normal sonographic appearance of the kidneys. 2. Suboptimal characterization of the uterus. There is thickening of the endometrium up to 1.2 cm an d an endometrial mass cannot be excluded. 3. 0.9 cm hypoechoic mass in the cervical endometrial canal. This may represent a polyp. 4. Heterogeneous myometrium. There are several hypo echoic area is present which may represent fibro ids. 5. Due to the suboptimal evaluation of the uterus, an MRI may be considered for further evaluation. 6. Limited visualization of the left ovary. The right ovary was not visualized transabdominally or t ransvaginally. DATA REPOSITORY:
== END 2020-12-01 02:44 ==
PROVIDERS: PCP Student in an Organized Health Care Education/Training Program; Visit Provider Obstetrics & Gynecology
DX: N95.0 Postmenopausal bleeding (principal); R93.89 Abnormal findings on diagnostic imaging of other specified body structures; R19.09 Other intra-abdominal and pelvic swelling, mass and lump; D25.9 Leiomyoma of uterus, unspecified
CPT/HCPCS: 76830; 76856

== ENCOUNTER 2021-04-24 08:59 | Emergency (ER) | payer MEDICARE, SELFPAY ==
[2021-04-24] VITALS (44 sets, daily range): BP systolic 135–165; BP diastolic 67–106; PULSE 46–100; RESP 8–21; TEMP 35.9–36.1; O2SAT 96–100
--- NOTE | 2021-04-24 08:45 | RT.EKG_ITS ---
APPROVED REPORT Exam: Resting ECG Reason for Exam: afib Patient Location: E HR:79 bpm ECG Measurements Heart Rate 79 AXIS NC [id number] P [id number] QRSd 83 QRS 18 QT 389 T 56 QTc 447 Conclusion Atrial fibrillation Ventricular premature complex...V complex w/ short R-R interval
--- NOTE | 2021-04-24 09:00 | DI.RAD_ITS ---
Exam(s) XR CHEST 1V IN DI DEPT EXAM: XR CHEST 1V IN DI DEPT CLINICAL HISTORY: Dizziness. TECHNIQUE: 2D digital imaging was performed. COMPARISON: CR,XR XR CHEST 2V PA LATERAL from 03/06/2020 FINDINGS: LUNGS: Clear. No pleural abnormality seen. HEART: Normal. MEDIASTINUM: Normal. OTHER FINDINGS: None. IMPRESSION: No acute pulmonary findings. DATA REPOSITORY: RADIATION DOSE DELIVERED: Total DLP
--- NOTE | 2021-04-24 09:16 | W.ED.GENAD ---
Discharge Plan Disposition Patient Disposition: HOME Condition: Improving Discharge Details Clinical Impression: Episodic peripheral vertigo Primary Care Provider: Lexi Rodriguez ED Provider: Dave Mercado Home Meds and New Rx's Prescriptions: New meclizine 12.5 mg tablet 12.5 mg PO BID PRN (Reason: dizziness) Qty: 10 RF: 0 Continued triamcinolone acetonide 0.1 % ointment 1 applic topical TID Qty: 30 RF: 1 Hold Instructions: Changed by Provider bacitracin [Bacitraycin Plus] 28 GM ointment 28 gm Topical PRN RF: 0 Neutrogena T/Fazal 133 ML shampoo 133 ml Topical PRN RF: 0 clobetasol 15 GM ointment 15 gm Topical HS twice weekly Qty: 15 RF: 4 clindamycin phosphate 1 % solution 1 applic Topical DAILY PRN (Reason: scalp lesions) Qty: 30 RF: 1 estradiol [Estrace] 0.01 % (0.1 mg/gram) cream 1 g VG 2X week 360 Days Qty: 0.5 RF: 3 fluticasone propionate 50 mcg/actuation spray,suspension 2 spray NS DAILY Qty: 15.8 RF: 3 metoprolol succinate 25 mg tablet extended release 24 hr 25 mg PO DAILY RF: 0 apixaban 5 mg tablet 5 mg PO BID RF: 0 acetaminophen 325 MG capsule 650 mg PO PRN PRNRF: 0 Discharge Instructions Instructions: Vertigo (ED) Additional Instructions: Home to rest today. May use meclizine, as needed for persistent vertigo. Continue your regularly prescribed medications including apixaban. Please follow-up with neurology for recheck. Return to the emergency department for any acute concerns. Medical Decision Making 80-year-old female presents from home via EMS. States she woke this morning and felt palpitations and measured heart rate approximate 170, this felt similar to previous episodes of A. fib. It was accompanied by a mild dull posterior headache, a sensation of dizziness, and patient states she felt very emotional. Symptoms started to improve on arrival to the ER. Patient's exam does not reveal any focal neurologic deficits. I do note discrete right lateral/horizontal 2-3 beat nystagmus. Patient reports components of peripheral vertigo, mild headache, rapid heart rate at home. She had IV access established, given fluid bolus, metoprolol and meclizine. By approximate 10 AM she felt significant improvement. Patient's diagnostic studies CBC and chemistries are reassuring with note of chronic renal insufficiency. CT scan of the head is without acute intracranial findings. Note of moderate calcification and stenosis at the origin of the left internal carotid artery, no stenosis of the extracranial segment. No dissection or occlusion. See formal report. Patient subjectively reports near complete resolution of symptoms. She request discharge to home. Do not feel there is indication for further work-up at this time. She has prestanding follow-up with her neurology team at [facility]. Will offer meclizine to be used as needed at home. She is stable, improving, appropriate for outpatient management. She understands indications to return to the ER for repeat evaluation. Lab Data Lab results reviewed: Yes I reviewed the patient's lab results. Labs: Laboratory Results - last 24 hr 04/24/21 04/24/21 04/24/21 08:35 08:35 08:35 WBC 5.44 RBC 4.53 Hgb 15.1 Hct 45.0 MCV 99.3 H MCH 33.3 H MCHC 33.6 RDW 12.5 Plt Count 301 MPV 9.6 Immature Gran % 0.2 Neutrophils % 51.1 Lymphocytes % 29.0 Monocytes % 12.3 Eosinophils % 6.1 Basophils % 1.3 Nucleated RBC % 0 Absolute Neutrophils 2.78 Absolute Lymphocytes 1.58 Absolute Monocytes 0.67 Absolute Eosinophils 0.33 Absolute Basophils 0.07 PT 10.9 INR 1.1 APTT 25.9 Sodium 143 Potassium 4.1 Chloride 108 H Carbon Dioxide 25.8 Anion Gap 9.2 BUN 13 Creatinine 1.1 H Estimated GFR/1.73 m2 48.04 Glucose 110 H Calcium 8.5 Magnesium 1.9 Total Bilirubin 0.4 AST 18 ALT 19 Alkaline Phosphatase 64 Troponin I < 0.05 Total Protein 7.0 Albumin 3.6 04/24/21 12:20 WBC RBC Hgb Hct MCV MCH MCHC RDW Plt Count MPV Immature Gran % Neutrophils % Lymphocytes % Monocytes % Eosinophils % Basophils % Nucleated RBC % Absolute Neutrophils Absolute Lymphocytes Absolute Monocytes Absolute Eosinophils Absolute Basophils PT INR APTT Sodium Potassium Chloride Carbon Dioxide Anion Gap BUN Creatinine Estimated GFR/1.73 m2 Glucose Calcium Magnesium Total Bilirubin AST ALT Alkaline Phosphatase Troponin I < 0.05 Total Protein Albumin HPI General Mode of arrival: EMS. Date/Time Provider Initiated Documentation: 04/24/21 09:16. Limitations to Documentation: no limitations. Information obtained by: patient and EMS. History of Present Illness 80 year old F presents to the emergency department with the chief complaint of Dizziness, headache, A. fib, and is localized to the head and chest. Patient reports no radiation. Patient started experiencing this minute(s) and it has been other (Improving). No relieving factors improve symptom(s), No exacerbating factors reported . Patient notes denies chest pain and syncope. Patient did receive the following treatments prior to arrival, none Related Data Home Medications Medication Instructions Recorded Confirmed Neutrogena T/Fazal 133 ml TOPICAL PRN script 01/20/15 04/24/21 bacitracin [Bacitraycin Plus] 28 gm TOPICAL PRN 01/20/15 04/24/21 clobetasol 15 gm TOPICAL HS twice weekly #15 08/07/16 04/24/21 gm acetaminophen 650 mg PO PRN PRN 11/28/16 04/24/21 clindamycin phosphate 1 % topical 1 applic TOPICAL DAILY PRN #30 ml 11/21/19 04/24/21 solution estradiol 1 g VG 2X week 360 Days #0.5 mg 11/16/20 04/24/21 fluticasone propionate 50 2 spray NS DAILY #15.8 ml 11/17/20 04/24/21 mcg/actuation nasal spray,suspension apixaban 5 mg tablet 5 mg PO BID 01/07/21 04/24/21 metoprolol succinate 25 mg 25 mg PO DAILY 01/07/21 04/24/21 tablet,extended release 24 hr triamcinolone acetonide 0.1 % 1 applic TOPICAL TID #30 g 02/07/21 04/24/21 topical ointment meclizine 12.5 mg PO BID PRN #10 tab 04/24/21 Previous Rx's Medication Instructions Recorded clindamycin phosphate 1 % topical 1 applic TOPICAL DAILY PRN #30 ml 11/21/19 solution estradiol 1 g VG 2X week 360 Days #0.5 mg 11/16/20 fluticasone propionate 50 2 spray NS DAILY #15.8 ml 11/17/20 mcg/actuation nasal spray,suspension triamcinolone acetonide 0.1 % 1 applic TOPICAL TID #30 g 02/07/21 topical ointment meclizine 12.5 mg PO BID PRN #10 tab 04/24/21 Allergies Allergy/AdvReac Type Severity Reaction Status Date / Time latex Allergy Intermediate blisters, Verified 04/24/21 12:37 skin rash methotrexate Allergy Intermediate Rash Verified 04/24/21 12:37 azithromycin AdvReac Severe Severe Verified 04/24/21 12:37 nausea clindamycin AdvReac Intermediate diarrhea Verified 04/24/21 12:37 codeine AdvReac Intermediate does not Verified 04/24/21 12:37 work for her NSAIDS (Non-Steroidal AdvReac Intermediate Difficulty Verified 04/24/21 12:37 Anti-Inflamma with Vision onion AdvReac Intermediate Diarrhea Verified 04/24/21 12:37 General Stated Complaint: Dizzy/Sync JUNAID: 3 Review of Systems Narrative: Intermittent constipation that is unchanged. No recent illness. Has seasonal allergies. No recent fall. No weakness or difficulty with speech. Patient feels some overwhelming emotional stress. No depression or suicidality. 8 systems reviewed and otherwise negative PFSH Medical History A-fib Afib Chronic kidney disease (CKD) stage G3b/A1, moderately decreased glomerular filtration rate (GFR) between 30-44 mL/min/1.73 square meter and albuminuria creatinine ratio less than 30 mg/g Collapsed vertebra, not elsewhere classified, cervical region, initial encounter for fracture (12/01/16) some activities lead to pinched nerve, R-sided Grief Hematometra Insomnia Intrinsic sphincter deficiency (ISD) 11/22/17 progress note [facility] [place] [facility] Irritable bowel syndrome with constipation (08/14/17) Keratosis pilaris Lichen sclerosus et atrophicus (01/20/15) Pain in buttock Hx buttock pain .. Pain is lasting beyond expectation s/p fall with serious hematoma. Hx buttoc (LFT med/min reattachment surgery years ago & recomm RT side to be reviewed in future) .. Palliative care patient Paroxysmal atrial fibrillation Postmenopausal atrophic vaginitis (01/20/15) Postmenopausal bleeding Preoperative cardiovascular examination Primary osteoarthritis of left hip (01/07/16) Pruritus (08/14/17) Pseudophakia of both eyes (08/14/17) Right buttock pain Fall 2019; Possible Glut max/min issue as was found/repaired on left side by Dr. 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 Tendinitis involving left hip abductors (01/07/16) Tendinitis involving right hip abductors (04/12/16) Thickened endometrium Traumatic hematoma of buttock Trochanteric bursitis, left hip (05/24/16) Trochanteric bursitis, right hip (04/12/16) Urinary incontinence (08/14/17) Uterine leiomyoma (01/18/16) Uterine mass Incidental finding on Ortho MRI (05/2020): Abnormal fluid signal in uterus, possible uterine mass. Correlation with pelvic ultrasound recommended. April 2019 Surgical History facial surgery H/O total hysterectomy with bilateral salpingo-oophorectomy (BSO) (~01/2021) 01/27/21 [facility] [place] w/sentinel lymph node mapping 03/11/21 Non healing abdominal surgical wound lateral right and left from laproscope History of bladder surgery History of pubovaginal sling nerve clip 4th toe rt foot Replacement of total knee joint both knees Status post dilatation and curettage thumb surgeries both thumbs Family History Mother , 98 years Stroke Colon cancer Father Dementia Sister No problems noted. Maternal Grandmother Breast cancer Maternal Aunt Breast cancer Maternal Aunt Breast cancer MS (multiple sclerosis) Maternal Aunt Breast cancer Maternal Aunt Breast cancer Daughter No problems noted. 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 Pets and animals: No Current gender identity: female What is your relationship status?: How often do you talk on the phone with friends or family?: three or more times per week How often do you get together with friends or relatives?: twice per week Panel score (0-1 are the most socially isolated patients): 1 What type of physical activity do you participate in: walking, bicycling and swimming Duration: 30-45 minutes/day Frequency: 3-4 times per week Special allegra needs: No Seatbelt use: always Drive intox or ride w/intox after school driver: No Working smoke detector in home: Yes Carbon monox detector in home: Yes Do you feel safe at home: Yes Exam Narrative Exam Narrative: GEN: awake, alert, oriented 3. Pleasant, well groomed, interactive. HEAD: Normocephalic, atraumatic ENT: Mucous membranes moist, oropharynx unremarkable, External ear exam unremarkable EYES: PERRL, EOMI NECK: Full ROM, no JAYCE, no menigismus CHEST/RESP: Nontender, clear to auscultation bilateral, no wheeze/rhonchi/rales CARDIOVASCULAR: Irregularly irregular, no murmur, rub jonathan. 2+ Rad pulse bilateral ABDOMEN: Soft, nontender, no mass. +Bowel sounds EXT: Full ROM, no edema, no rash Neuro: Grossly normal neurologic exam, conversant, interactive. Psych: Speech fluent, thoughts congruent, affect normal Course Vital Signs Vital signs: Vital Signs Temperature 36.1 C L 04/24/21 09:01 Pulse 97 H 04/24/21 09:01 Respiratory Rate 18 04/24/21 09:01 Blood Pressure 139/106 H 04/24/21 09:01 Pulse Oximetry 99 04/24/21 09:01 Temperature 36.1 C L 04/24/21 09:01 Pulse 97 H 04/24/21 09:01 Respiratory Rate 18 04/24/21 09:01 Blood Pressure 139/106 H 04/24/21 09:01 Blood Pressure Position Sitting 04/24/21 09:01 Pulse Oximetry 99 04/24/21 09:01 Oxygen Delivery Method Room Air 04/24/21 09:01 Oxygen Flow Rate 0 04/24/21 09:01
[2021-04-24 09:29] LABS: Abs Immature Grans 0.01 10^3/uL (0.0-0.06); Absolute Basophil Count 0.07 10^3/uL (0.0-0.2); Absolute Eosinophil Count 0.33 10^3/uL (0.0-0.7); Absolute Lymphocyte Count 1.58 10^3/uL (1.2-3.4); Absolute Monocyte Count 0.67 10^3/uL (0.1-0.8); Absolute Neutrophil Count 2.78 10^3/uL (1.2-6.7); Basophils % 1.3; Eosinophils % 6.1; HGB 15.1 g/dL (11.2-15.7); Immature Grans % 0.2; MCH 33.3 pg (27.0-33.0); MCHC 33.6 % (32.0-36.0); MCV 99.3 fL (80-95); MPV 9.6 fL (8.0-11.0); Monocytes % 12.3; Neutrophils % 51.1; Nucleated RBC 0 %; Platelet Count 301 10^3/uL (130-400); RBC 4.53 10^6/uL (3.93-5.22); RDW 12.5 % (11.7-14.6); WBC 5.44 10^3/uL (4.4-10.8)
[2021-04-24] MEDS: Normal Saline 1,000 ML 1000 ML IV (09:29)
[2021-04-24] MEDS: Metoprolol 5 MG/5 ML VIAL IVP (09:31)
[2021-04-24] MEDS: Meclizine 12.5 MG TAB PO (09:33)
[2021-04-24 09:41] LABS: INR 1.1 (0.9-1.1); PTT Activated 25.9 sec (21.0-27.5); Prothrombin Time 10.9 sec (9.3-11.0)
[2021-04-24 09:44] LABS: ALT 19 U/L (14-59); AST 18 U/L (15-37); Albumin 3.6 g/dL (3.4-5.0); Alkaline Phosphatase 64 U/L (46-116); Anion Gap 9.2 mmol/L (3-11); BUN 13 mg/dL (7-18); Bilirubin, Total 0.4 mg/dL (0.2-1.0); CO2 25.8 mmol/L (21.0-32.0); CREATININE 1.1 mg/dL (0.55-1.02); Calcium 8.5 mg/dL (8.5-10.1); Chloride 108 mmol/L (98-107); Estimated GFR 48.04 (mL/min/1.73m2); Glucose 110 mg/dL (74-106); Magnesium 1.9 mg/dL (1.8-2.4); Potassium 4.1 mmol/L (3.5-5.1); Sodium 143 mmol/L (136-145)
[2021-04-24 09:48] LABS: Troponin I < 0.05 ng/mL (<0.06)
[2021-04-24] MEDS: Normal Saline - Diluent 50 ML VIAL IV (11:27)
[2021-04-24] MEDS: Omnipaque 350 MG/ML 100 ML BTL IJ (11:28)
--- NOTE | 2021-04-24 11:37 | DI.CT_ITS ---
Exam(s) CT BRAIN NECK CTA EXAM: CT BRAIN NECK CTA CLINICAL HISTORY: Hx R P1-2 stenosis. Dizzy, MURILLO, afib today. TECHNIQUE: Imaging Protocol: Axial CT angiography was performed with multi-slice acquisition and mu lti-planar and/or 3D reconstructions. CONTRAST MATERIAL: Intravenous: Omnipaque 350 Contrast volume:structured data in ml COMPARISON: No exams were available for comparison FINDINGS: CT angiography of the cervical cranial region was performed according to the usual protocol with intr avenous infusion of 100 cc of Omnipaque 350.. Initial noncontrast scanning of the head is unremarkable except for moderate generalized cerebral atr ophy.. Visualized lung apices are clear. Visualized portions of thoracic aorta and pulmonary arterial circul ation are unremarkable. There is no evidence of a cervical mass or adenopathy. The tracheal laryngeal structures appear intact. The common, internal, and external carotid arteries are within normal limits in the cervical region w ith no evidence of aneurysm, stenosis, or dissection. Minimal calcified atheromatous plaque of left carotid bifurcation. Right vertebral artery appears intact throughout its course, no evidence of aneurysm stenosis or diss ection. The origin of the left vertebral artery is partially calcified and there may be a greater th an 50 percent luminal diameter stenosis, this is not ideally visualized.. Intracranial portions of the internal carotid arteries appear normal with no evidence of aneurysm, st enosis, or dissection. Intracranial vertebral arteries and basilar artery appear normal with no evidence of aneurysm, stenos is or dissection. No aneurysm identified in the region of the [id number]. The anterior, middle, and posterior cer ebral arteries and major branches appear intact with no evidence of aneurysm, stenosis, or dissection . No enhancing brain lesion identified. 5 minutes delayed imaging of the brain shows no evidence of mass lesion or enhancing lesion. IMPRESSION: Question greater than 50 percent luminal diameter stenosis proximal left vertebral artery at its orig in. No other hemodynamically significant lesion identified. No other significant findings. RADIATION DOSE DELIVERED: 2,002.6mGy.cmTotal DLP 2,002.6mGy.cm Total DLP CTDIvol DATA REPOSITORY: All CT scans at this facility are submitted to the National Radiology Data Registry (NRDR) Dose Index Registry (DIR) with the [employer] (ACR). RADIATION OPTIMIZATION: All CT scans at this facility use at least one of these dose optimization te chniques: automated exposure control; mA and/or kV adjustment per patient size (includes targeted exa ms where dose is matched to clinical indication); or iterative reconstruction.
--- NOTE | 2021-04-24 12:35 | DI.VRAD_ITS ---
PROCEDURE INFORMATION: Exam: CT Angiography Head With Contrast, Arteriography Exam date and time: 04/24/2021 10:53 AM Age: 80 years old Clinical indication: Dizziness and giddiness; Patient HX: HX R p1-2 stenosis, dizzy, MURILLO, a-fib today TECHNIQUE: Imaging protocol: Computed tomography angiography of the head with contrast. Exam focused on the arteries. 3D rendering (Not supervised by radiologist): MIP and/or 3D reconstructed images were created by the technologist. Radiation optimization: All CT scans at this facility use at least one of these dose optimization techniques: automated exposure control; mA and/or kV adjustment per patient size (includes targeted exams where dose is matched to clinical indication); or iterative reconstruction. Contrast material: OMNI 350; Contrast volume: 85 ml; Contrast route: INTRAVENOUS (IV); COMPARISON: MR ANGIO BRAIN WO 01/09/2020 4:13 PM FINDINGS: ANTERIOR CIRCULATION: Right internal carotid artery: Unremarkable. Intracranial segment is patent with no significant stenosis. No aneurysm. Right middle cerebral artery: Unremarkable. No occlusion or significant stenosis. No aneurysm. Right anterior cerebral artery: Unremarkable. No occlusion or significant stenosis. No aneurysm. Left internal carotid artery: Unremarkable. Intracranial segment is patent with no significant stenosis. No aneurysm. Left middle cerebral artery: Unremarkable. No occlusion or significant stenosis. No aneurysm. Left anterior cerebral artery: Unremarkable. No occlusion or significant stenosis. No aneurysm. POSTERIOR CIRCULATION: Right vertebral artery: Unremarkable. No occlusion or significant stenosis. No aneurysm. Left vertebral artery: Unremarkable. No occlusion or significant stenosis. No aneurysm. Basilar artery: Unremarkable. No occlusion or significant stenosis. No aneurysm. Right posterior cerebral artery: Unremarkable. No occlusion or significant stenosis. No aneurysm. Left posterior cerebral artery: Unremarkable. No occlusion or significant stenosis. No aneurysm. Brain: There is generalized chronic atrophy. Chronic white matter ischemic changes are present. No intracranial hemorrhage, edema or other acute intracranial abnormality is seen.. Cerebral ventricles: No ventriculomegaly. Bones/joints: Unremarkable. No acute fracture. Soft tissues: Unremarkable. IMPRESSION: No large vessel stenosis or occlusion. PROCEDURE INFORMATION: Exam: CT Angiography Neck With Contrast Exam date and time: 04/24/2021 10:53 AM Age: 80 years old Clinical indication: Dizziness and giddiness; Patient HX: HX R p1-2 stenosis, dizzy, MURILLO, a-fib today TECHNIQUE: Imaging protocol: Computed tomography angiography of the neck with contrast. 3D rendering (Not supervised by radiologist): MIP and/or 3D reconstructed images were created by the technologist. Radiation optimization: All CT scans at this facility use at least one of these dose optimization techniques: automated exposure control; mA and/or kV adjustment per patient size (includes targeted exams where dose is matched to clinical indication); or iterative reconstruction. Contrast material: OMNI 350; Contrast volume: 85 ml; Contrast route: INTRAVENOUS (IV); COMPARISON: MR ANGIO BRAIN WO 01/09/2020 4:13 PM FINDINGS: Right common carotid artery: No stenosis. No dissection or occlusion. Right internal carotid artery: No stenosis of the extracranial segment. No dissection or occlusion. Right external carotid artery: No occlusion or stenosis of the origin. Left common carotid artery: No stenosis. No dissection or occlusion. Left internal carotid artery: There is calcification at the origin of the left internal carotid artery but there is no stenosis of the extracranial segment. No dissection or occlusion. Left external carotid artery: No occlusion or stenosis of the origin. Right vertebral artery: No stenosis. No dissection or occlusion. Left vertebral artery: There is calcification at the origin of the left vertebral artery with moderate stenosis at the origin.. Soft tissues: Normal. No significant soft tissue swelling. Bones/joints: No acute fracture. IMPRESSION: 1. No significant carotid artery stenosis. 2. There is focal calcification at the origin of the left vertebral artery with moderate stenosis. REFERENCES: NASCET CRITERIA. The degree of internal carotid artery stenosis is based on NASCET criteria. Normal is no stenosis. Mild is less than 50% stenosis. Moderate is 50-69% stenosis. Severe is 70% to 99% stenosis. Total occlusion is no detectable patent lumen. Dictated and Authenticated by: Stuart Montgomery MD. Ordering:DAVID Acosta MD
--- NOTE | 2021-04-24 12:40 | DI.VRAD_ITS ---
PROCEDURE INFORMATION: Exam: XR Chest Exam date and time: 04/24/2021 9:16 AM Age: 80 years old Clinical indication: Other: Dizziness TECHNIQUE: Imaging protocol: XR of the chest. Views: 1 view. COMPARISON: CR XR CHEST 2V PA LATERAL 03/06/2020 8:57 AM FINDINGS: Lungs: Unremarkable. No consolidation. Pleural spaces: Unremarkable. No pleural effusion. No pneumothorax. Heart/Mediastinum: Unremarkable. No cardiomegaly. Bones/joints: Unremarkable. IMPRESSION: No significant cardiopulmonary abnormality. Dictated and Authenticated by: Stuart Montgomery MD. Ordering:DAVID Acosta MD
[2021-04-24 12:44] LABS: Troponin I < 0.05 ng/mL (<0.06)
== END 2021-04-24 13:20 | disposition home or self-care (01) ==
PROVIDERS: Emergency Provider Emergency Medicine; PCP Student in an Organized Health Care Education/Training Program
DX: H81.399 Other peripheral vertigo, unspecified ear (principal); I48.91 Unspecified atrial fibrillation; R51.9 Headache, unspecified
CPT/HCPCS: 70496; 70498; 80053; 93005; 96361; 96374; 99285; 71045; 83735; 84484; 85025; 85610; 85730; 93010; 99284; J3490

== ENCOUNTER → 2021-05-13 09:50 | Outpatient (BNVA) | payer MEDICARE, SELFPAY | PROVIDERS: PCP Student in an Organized Health Care Education/Training Program; Referring Provider Student in an Organized Health Care Education/Training Program; Visit Provider Internal Medicine Cardiovascular Disease | DX: I48.0 Paroxysmal atrial fibrillation (principal); Z79.01 Long term (current) use of anticoagulants | CPT/HCPCS: 99214; 99213 ==

== ENCOUNTER 2021-06-02 02:51 | Outpatient (CLI) | payer MEDICARE, SELFPAY ==
[2021-06-02 09:10] LABS: HCT 41.3 % (36.0-46.0); HGB 13.7 g/dL (11.2-15.7); MCHC 33.2 % (32.0-36.0); MCV 99.5 fL (80-95); MPV 9.4 fL (8.0-11.0); Platelet Count 253 10^3/uL (130-400); RBC 4.15 10^6/uL (3.93-5.22); RDW 12.3 % (11.7-14.6); RDW-SD 44.7 fL; Reticulocyte 1.3 % (0.5-2.4); WBC 6.64 10^3/uL (4.4-10.8)
[2021-06-02 10:22] LABS: TSH (W/Ref FT4) 2.52 uIU/mL (0.36-3.74); Vitamin B12 364 pg/mL (193-986)
[2021-06-02 10:28] LABS: Folate > 20.0 ng/mL (8.6-20.0)
[2021-06-03 18:58] LABS: Copper, Serum 1.05 mcg/mL (0.75-1.45)
== END 2021-06-02 02:52 | disposition home or self-care (01) ==
LOC: LBO 02:52
PROVIDERS: PCP Student in an Organized Health Care Education/Training Program; Visit Provider Student in an Organized Health Care Education/Training Program
DX: R71.8 Other abnormality of red blood cells (principal); I48.0 Paroxysmal atrial fibrillation; N18.30 Chronic kidney disease, stage 3 unspecified; N95.0 Postmenopausal bleeding
CPT/HCPCS: 36415; 85027; 82525; 82607; 82746; 84443; 85045

== ENCOUNTER → 2021-07-01 11:10 | Outpatient (BNVA) | payer MEDICARE, SELFPAY | PROVIDERS: PCP Student in an Organized Health Care Education/Training Program; Referring Provider Student in an Organized Health Care Education/Training Program; Visit Provider Internal Medicine Cardiovascular Disease | DX: I48.0 Paroxysmal atrial fibrillation (principal) | CPT/HCPCS: 99212; 99213 ==

== ENCOUNTER 2021-11-07 01:44 | Outpatient (CLI) | payer MEDICARE, SELFPAY ==
[2021-11-07 08:41] LABS: HCT 40.2 % (36.0-46.0); HGB 13.7 g/dL (11.2-15.7); MCH 32.9 pg (27.0-33.0); MCHC 34.1 % (32.0-36.0); MCV 96.6 fL (80-95); MPV 9.1 fL (8.0-11.0); Platelet Count 238 10^3/uL (130-400); RBC 4.16 10^6/uL (3.93-5.22); RDW 12.4 % (11.7-14.6); RDW-SD 44.7 fL; WBC 5.99 10^3/uL (4.4-10.8)
[2021-11-07 09:42] LABS: BUN 20 mg/dL (7-18); CREATININE 1.3 mg/dL (0.55-1.02); Calcium 9.1 mg/dL (8.5-10.1); Chloride 105 mmol/L (98-107); Estimated GFR 39.51 (mL/min/1.73m2); Glucose 85 mg/dL (74-106); Potassium 4.5 mmol/L (3.5-5.1); Sodium 139 mmol/L (136-145); TSH (W/Ref FT4) 1.76 uIU/mL (0.36-3.74)
== END 2021-11-07 01:45 | disposition home or self-care (01) ==
LOC: LBO 01:44
PROVIDERS: PCP Student in an Organized Health Care Education/Training Program; Visit Provider Student in an Organized Health Care Education/Training Program
DX: L92.0 Granuloma annulare (principal); N18.32 Chronic kidney disease, stage 3b; R93.89 Abnormal findings on diagnostic imaging of other specified body structures
CPT/HCPCS: 36415; 80048; 85027; 84443

== ENCOUNTER 2021-12-19 08:33 | Inpatient (IN) | payer MEDICARE, SELFPAY ==
[2021-12-19] VITALS (38 sets, daily range): BP systolic 105–145; BP diastolic 57–100; PULSE 44–68; RESP 7–21; TEMP 36.4–36.8; O2SAT 94–99
--- NOTE | 2021-12-19 08:15 | RT.EKG_ITS ---
APPROVED REPORT Exam: Resting ECG Reason for Exam: low heart rate, dizzy Patient Location: E HR:54 bpm ECG Measurements Heart Rate 54 AXIS OR 167 P 50 QRSd 79 QRS 3 QT 447 T 64 QTc 425 Conclusion Slow sinus arrhythmia...V-rate 48- 65, mean< 60 bradycardic sinus arrhythmia at 54, normal axis, no STEMI
[2021-12-19 09:13] LABS: Abs Immature Grans 0.02 10^3/uL (0.0-0.06); Absolute Basophil Count 0.08 10^3/uL (0.0-0.2); Absolute Monocyte Count 0.81 10^3/uL (0.1-0.8); Absolute Neutrophil Count 3.82 10^3/uL (1.2-6.7); Basophils % 1.2; Eosinophils % 4.6; HCT 44.2 % (36.0-46.0); HGB 14.9 g/dL (11.2-15.7); Immature Grans % 0.3; MCHC 33.7 % (32.0-36.0); MCV 97.8 fL (80-95); MPV 9.7 fL (8.0-11.0); Monocytes % 12.4; Neutrophils % 58.5; Nucleated RBC 0 %; Platelet Count 268 10^3/uL (130-400); RBC 4.52 10^6/uL (3.93-5.22); RDW 12.7 % (11.7-14.6); RDW-SD 45.8 fL; WBC 6.53 10^3/uL (4.4-10.8)
--- NOTE | 2021-12-19 09:22 | DI.RAD_ITS ---
Exam(s) XR PORTABLE CHEST AP EXAM: XR PORTABLE CHEST AP CLINICAL HISTORY: near syncope TECHNIQUE: 2D digital imaging was performed. COMPARISON: CR,XR XR CHEST 1V IN DI DEPT from 04/24/2021 FINDINGS: LUNGS: Clear. No pleural abnormality seen. HEART: Normal. MEDIASTINUM: Normal. BONES: Unremarkable. IMPRESSION: No acute pulmonary findings. DATA REPOSITORY: RADIATION DOSE DELIVERED:
[2021-12-19 09:42] LABS: ALT 28 U/L (14-59); AST 17 U/L (15-37); Albumin 3.8 g/dL (3.4-5.0); Alkaline Phosphatase 65 U/L (46-116); Anion Gap 6.1 mmol/L (3-11); BUN 26 mg/dL (7-18); Bilirubin, Total 0.5 mg/dL (0.2-1.0); CO2 27.9 mmol/L (21.0-32.0); CREATININE 1.3 mg/dL (0.55-1.02); Calcium 9.2 mg/dL (8.5-10.1); Chloride 108 mmol/L (98-107); Estimated GFR 39.51 (mL/min/1.73m2); Glucose 120 mg/dL (74-106); Magnesium 2.4 mg/dL (1.8-2.4); NT-proBNP 1147 pg/mL (<300); Potassium 4.6 mmol/L (3.5-5.1); Sodium 142 mmol/L (136-145); TSH (W/Ref FT4) 1.89 uIU/mL (0.36-3.74); Troponin I < 50 ng/L (<or=60)
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
[2021-12-19] MEDS: Normal Saline 250 ML IV (10:33)
[2021-12-19 10:46] LABS: Source Nasal/Nares
[2021-12-19 11:25] LABS: COVID-19 PCR Negative (Negative)
[2021-12-19 12:30] LABS: Troponin I < 50 ng/L (<or=60)
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
--- NOTE | 2021-12-19 17:30 | DI.CT_ITS ---
Exam(s) CT HEAD WO EXAM: CT HEAD WO CLINICAL HISTORY: leg weakness. TECHNIQUE: Imaging Protocol: Axial computed tomography images with coronal and sagittal reformatted images were created and reviewed COMPARISON: CT CT BRAIN NECK CTA from 04/24/2021 FINDINGS: Ventricles and Extra axial spaces: Normal in size and morphology for the patient's age. Hemorrhage: None. Cerebral parenchyma: No evidence of an acute territorial infarct is seen. There are areas of decreas ed attenuation in the white matter consistent with small vessel ischemic disease Midline shift: None. Brainstem/Cerebellum: Normal. Calvarium: Normal. Visualized Paranasal sinuses/Mastoids: Clear. Soft Tissues: Unremarkable. IMPRESSION: No acute intracranial process. RADIATION DOSE DELIVERED: 781.69mGy.cm Total DLP DATA REPOSITORY: All CT scans at this facility are submitted to the National Radiology Data Registry (NRDR) Dose Index Registry (DIR) with the [employer] (ACR). RADIATION OPTIMIZATION: All CT scans at this facility use at least one of these dose optimization te chniques: automated exposure control; mA and/or kV adjustment per patient size (includes targeted exa ms where dose is matched to clinical indication); or iterative reconstruction.
--- NOTE | 2021-12-19 17:52 | DI.VRAD_ITS ---
PROCEDURE INFORMATION: Exam: CT Head Without Contrast Exam date and time: 12/19/2021 5:26 PM Age: 81 years old Clinical indication: Patient HX: Leg weakness, dizziness. TECHNIQUE: Imaging protocol: Computed tomography of the head without contrast. Radiation optimization: All CT scans at this facility use at least one of these dose optimization techniques: automated exposure control; mA and/or kV adjustment per patient size (includes targeted exams where dose is matched to clinical indication); or iterative reconstruction. COMPARISON: CT BRAIN NECK CTA 04/24/2021 11:22 AM FINDINGS: Brain: Age-related involutional changes and chronic microvascular ischemic disease. No evidence for acute transcortical infarct. No mass effect or midline shift. No extra-axial collection. No acute intracranial hemorrhage. Basal cisterns are patent. Cerebral ventricles: No ventriculomegaly. Paranasal sinuses: Visualized sinuses are unremarkable. No fluid levels. Mastoid air cells: Visualized mastoid air cells are well aerated. Orbital cavities: Bilateral cataract surgery. Bones/joints: Unremarkable. No acute fracture. Soft tissues: Unremarkable. IMPRESSION: No evidence for acute transcortical infarct, acute intracranial hemorrhage, or mass effect. Dictated and Authenticated by: Gómez Velazquez MD. Ordering:LEESA Grimes MD
[2021-12-19] MEDS: Normal Saline Flush 10 ML SYR IVP (18:04)
[2021-12-20] VITALS (7 sets, daily range): BP systolic 120–161; BP diastolic 65–78; PULSE 56–75; RESP 17; TEMP 36–36.4; O2SAT 94–96
[2021-12-20 06:46] LABS: BUN 33 mg/dL (7-18); CREATININE 1.3 mg/dL (0.55-1.02); Chloride 105 mmol/L (98-107); Estimated GFR 39.51 (mL/min/1.73m2); Glucose 105 mg/dL (74-106); Potassium 4.2 mmol/L (3.5-5.1); Sodium 140 mmol/L (136-145)
[2021-12-20] MEDS: Acetaminophen 325 MG TAB PO (08:36)
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
--- NOTE | 2022-01-05 08:32 | W.CARDEVENT ---
Date of service: 01/05/22 Time of Service: 08:32 Cardiac Event Recorder Referring Provider:: Lexi Rodriguez Indications:: Bradycardia Cardiac Event Note: This is a cardiac event monitor reportedly ordered for bradycardia. Patient was monitored for a total period of 7 days. Predominant rhythm was sinus with an average heart rate of 83. Minimum was 57, maximum 107 Patient was in sinus rhythm for 75% of the recording. The other 25% she was in atrial fibrillation. Average heart rate while in atrial fibrillation was 116. Maximum rate in atrial fibrillation was 160. There was no high-grade AV block, no pauses greater than 3 seconds No significant ventricular dysrhythmias were seen Patient symptoms were reported which overall appeared to correlate with atrial fibrillation with rapid ventricular response
== END 2021-12-20 15:25 | disposition home or self-care (01) | DRG 312 ==
LOC: ER 14:23 → MS 14:23
PROVIDERS: Admitting Provider Family Medicine; Emergency Provider Student in an Organized Health Care Education/Training Program; PCP Student in an Organized Health Care Education/Training Program; Visit Provider Family Medicine
DX: I95.1 Orthostatic hypotension (principal); I48.0 Paroxysmal atrial fibrillation; R00.1 Bradycardia, unspecified; N18.32 Chronic kidney disease, stage 3b; K58.1 Irritable bowel syndrome with constipation; F34.1 Dysthymic disorder; L90.0 Lichen sclerosus et atrophicus; Z85.42 Personal history of malignant neoplasm of other parts of uterus; R10.2 Pelvic and perineal pain
CPT/HCPCS: 36415; 80048; 80053; 87635; 93005; 93246; 93270; 96360; 99285; 70450; 71045; 83735; 83880; 84443; 84484; 85025; 93010; 99223; 99239

== ENCOUNTER 2021-12-26 09:22 | Outpatient (CLI) | payer MEDICARE, SELFPAY ==
--- NOTE | 2021-12-26 09:22 | RT.EKG_ITS ---
APPROVED REPORT Exam: Resting ECG Reason for Exam: Symptomatic Patient Location: O HR:73 bpm ECG Measurements Heart Rate 73 AXIS [place] 162 P -1 QRSd 77 QRS 14 QT 413 T 59 QTc 455 Conclusion Sinus rhythm...normal P axis, V-rate 60- 99 Normal Electrocardiogram
== END 2021-12-26 09:23 | disposition home or self-care (01) ==
LOC: DI.KIM 09:23
PROVIDERS: PCP Student in an Organized Health Care Education/Training Program; Visit Provider Family Medicine
DX: I48.0 Paroxysmal atrial fibrillation (principal)
CPT/HCPCS: 93010

== ENCOUNTER 2022-01-05 08:32 | Outpatient (CLI) | payer MEDICARE, SELFPAY | END 2022-01-05 08:33 | LOC: CARDO 01-24 13:58 | PROVIDERS: PCP Student in an Organized Health Care Education/Training Program; Referring Provider Student in an Organized Health Care Education/Training Program; Visit Provider Internal Medicine Cardiovascular Disease | DX: R00.1 Bradycardia, unspecified (principal); R07.9 Chest pain, unspecified; I48.91 Unspecified atrial fibrillation | CPT/HCPCS: 93248 ==

== ENCOUNTER 2022-04-27 17:29 | Emergency (ER) | payer MEDICARE, SELFPAY ==
[2022-04-27 17:40] VITALS: BP 170/60; PULSE 72; RESP 18; TEMP 37.2; O2SAT 97
--- NOTE | 2022-04-27 18:45 | DI.CT_ITS ---
Exam(s) CT HEAD CERV SPINE FACIAL WO EXAM: CT HEAD CERV SPINE FACIAL WO CLINICAL HISTORY: fall w/ head injury, r/o acute intracranial inj. TECHNIQUE: Imaging Protocol: Axial computed tomography images with coronal and sagittal reformatted images were created and reviewed COMPARISON: CT CT HEAD WO from 12/19/2021 FINDINGS: CT Head: Ventricles and Extra axial spaces: Normal in size and morphology for the patient's age. Hemorrhage: None. Cerebral parenchyma: No acute territorial infarct. There are areas of decreased attenuation in the w gabby matter most consistent with small vessel ischemic disease. Midline shift: None. Brainstem/Cerebellum: Normal. Calvarium: Normal. Visualized Paranasal sinuses/Mastoids: Clear. Soft Tissues: Unremarkable. CT Face: Facial Bones: No definite fracture is noted in facial bones. Sinuses and Mastoids: There is mild mucosal thickening seen in the maxillary sinuses. The remaining visualized paranasal sinuses mastoid air cells are clear. Globes, extraocular muscles, optic nerves and retrobulbar fat: Normal. Upper aerodigestive tract: Normal. Mandible and bilateral temporomandibular joints: Normal. Soft tissues: Normal. CT Cervical Spine: Bones: No acute fracture or subluxation. There are degenerative changes seen in the cervical spine. There is straightening of the normal cervical lordosis which may be due to muscle spasm or patient po sitioning. Soft Tissues: Unremarkable. Lung Apices: Clear. IMPRESSION: 1. No acute intracranial process. 2. No acute fracture or subluxation in the cervical spine. 3. No acute facial fracture. RADIATION DOSE DELIVERED: 1,950.37mGy.cm Total DLP DATA REPOSITORY: All CT scans at this facility are submitted to the National Radiology Data Registry (NRDR) Dose Index Registry (DIR) with the [employer] (ACR). RADIATION OPTIMIZATION: All CT scans at this facility use at least one of these dose optimization te chniques: automated exposure control; mA and/or kV adjustment per patient size (includes targeted exa ms where dose is matched to clinical indication); or iterative reconstruction.
--- NOTE | 2022-04-27 18:45 | DI.RAD_ITS ---
Exam(s) XR WRIST RT COMPLETE EXAM: XR WRIST RT COMPLETE CLINICAL HISTORY: fall, r/o fx. TECHNIQUE: 2D digital imaging was performed of the right wrist. Three views were obtained. Scaphoid , PA, lateral and oblique views were obtained. COMPARISON: No exams were available for comparison FINDINGS: BONES: No acute fracture is present. No bony destructive lesion is seen. Diffuse osteopenia. There i s a well corticated osseous fragment at the tip of the ulnar styloid process which appears old. JOINTS: The carpal bones are normally aligned. Degenerative changes are seen in the wrist. There has been resection of the trapezium. SOFT TISSUE: Normal. IMPRESSION: No acute fracture or dislocation. DATA REPOSITORY: RADIATION DOSE DELIVERED:
--- NOTE | 2022-04-27 18:45 | DI.RAD_ITS ---
Exam(s) XR HAND LT COMPLETE EXAM: XR HAND LT COMPLETE CLINICAL HISTORY: fall, r/o fx 5th finger. TECHNIQUE: 2D digital imaging was performed of the left hand. Three views were obtained. AP, later al and oblique views were obtained. COMPARISON: No exams were available for comparison FINDINGS: BONES: No acute fracture is present. No bony destructive lesion is seen. Diffuse osteopenia. JOINTS: No dislocation present. Marked osteoarthritis of the hand. Status post resection of the trap ezium. SOFT TISSUE: Normal. IMPRESSION: No acute fracture or dislocation. DATA REPOSITORY: RADIATION DOSE DELIVERED:
--- NOTE | 2022-04-27 18:45 | DI.RAD_ITS ---
Exam(s) XR SHOULDER LT COMPLETE 2+V EXAM: XR SHOULDER LT COMPLETE 2+V CLINICAL HISTORY: fall, r/o fx. TECHNIQUE: 2D digital imaging was performed of the left shoulder. Five images were obtained. AP, G rashey, Y-view and axillary views were obtained. COMPARISON: No exams were available for comparison FINDINGS: BONES: No acute fracture is present. No bony destructive lesion is seen. Osteopenia is present. JOINTS: No dislocation present. SOFT TISSUE: Normal. IMPRESSION: No acute fracture or dislocation. DATA REPOSITORY: RADIATION DOSE DELIVERED:
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
[2022-04-27] MEDS: Acetaminophen 500 MG TAB 1000 MG PO (19:24)
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
--- NOTE | 2022-04-27 20:46 | DI.VRAD_ITS ---
PROCEDURE INFORMATION: Exam: XR Left Shoulder Exam date and time: 04/27/2022 7:43 PM Age: 81 years old Clinical indication: Injury or trauma; Fall; Blunt trauma (contusions or hematomas); Shoulder; Left; Additional info: Fall w/ head injury, R/O acute intracranial inj TECHNIQUE: Imaging protocol: Radiologic exam of the Left shoulder. Views: 2 or more views. COMPARISON: CT HEAD CERV SPINE FACIAL WO 04/27/2022 7:29 PM FINDINGS: Bones/joints: Diffuse osteopenia. No displaced fractures identified. Soft tissues: Grossly unremarkable. IMPRESSION: No displaced fractures or dislocations identified. Dictated and Authenticated by: Esau Werner MD. Ordering:YOLA Mccrary MD
--- NOTE | 2022-04-27 20:47 | DI.VRAD_ITS ---
PROCEDURE INFORMATION: Exam: XR Left Hand Exam date and time: 04/27/2022 7:35 PM Age: 81 years old Clinical indication: Injury or trauma; Fall; Blunt trauma (contusions or hematomas); Shoulder; Left; Additional info: Fall w/ head injury, R/O acute intracranial inj TECHNIQUE: Imaging protocol: Radiologic exam of the Left hand. Views: 3 or more views. COMPARISON: No relevant prior studies available. FINDINGS: Bones/joints: Diffuse osteopenia. Degenerative changes/osteo arthritis involving distal and proximal interphalangeal joints. Degenerative changes at the base of the 1st metacarpal bone. Soft tissues: Grossly unremarkable. IMPRESSION: No acute displaced fractures identified. Diffuse osteopenia, degenerative changes/osteoarthritis. Dictated and Authenticated by: Esau Werner MD. Ordering:YOLA Mccrary MD
--- NOTE | 2022-04-27 20:54 | W.EDPROG ---
Date of service: 04/27/22 Time of Service: 20:54 Medical Decision Making Care was signed out by Dr. Cho please see her documentation regarding initial ED presentation course. Patient had mechanical fall with head trauma. CT of the head was negative. Plan at signout was to follow-up on x-rays of the left hand, right wrist, and left shoulder. X-rays were interpreted by radiology: No acute fractures or dislocations. Diffuse osteopenia noted with degenerative changes/osteoarthritis. There is note of a scapholunate prolapse, sequela of an old trauma. Skin tear left lower leg cleansed and dressed by nursing. Plan will be for discharge with outpatient follow-up. Fall precautions were provided as part of usual and customary discharge instructions. Sign Out Sign Out Data: Sign Out Comment: Mechanical fall prior to arrival. CT head imaging negative. Follow-up on x-rays and if negative will plan for discharge to home. Will need irrigation and Tegaderm to her left leg skin tear. Last updated by Demetra Cho DO at 04/27/22 20:28 Discharge Plan Disposition Patient Disposition: HOME Condition: Stable Discharge Details Clinical Impression: Fall, Closed head injury without loss of consciousness, Post concussive syndrome, Contusion of left shoulder, Contusion of left hand, Right wrist sprain, Skin tear of left lower leg without complication Primary Care Provider: Lexi Rodriguez ED Provider: Florentino Vasquze Home Meds and New Rx's Prescriptions: Continued triamcinolone acetonide 0.1 % ointment 1 applic topical TID Qty: 30 1RF Hold Instructions: Changed by Provider Rx Instructions: 02/02/21 per [facility] [place] [facility] [employer] [facility] Discharge Instructions Instructions: Fall Prevention for Older Adults (ED), Head Injury (ED), Skin Tear (ED) Additional Instructions: Please contact your primary care physician to arrange follow-up. Return to the ER immediately for any worsening or new concerning symptoms. Referrals: Lexi Rodriguez DO [Primary Care Provider] -
== END 2022-04-27 21:27 | disposition home or self-care (01) ==
PROVIDERS: Emergency Provider Student in an Organized Health Care Education/Training Program; PCP Student in an Organized Health Care Education/Training Program
DX: S81.812A Laceration without foreign body, left lower leg, initial encounter (principal); S63.501A Unspecified sprain of right wrist, initial encounter; S60.222A Contusion of left hand, initial encounter; S40.012A Contusion of left shoulder, initial encounter; S00.81XA Abrasion of other part of head, initial encounter; F07.81 Postconcussional syndrome; I48.91 Unspecified atrial fibrillation; W18.39XA Other fall on same level, initial encounter; W22.09XA Striking against other stationary object, initial encounter; Y92.512 Supermarket, store or market as the place of occurrence of the external cause; Y93.01 Activity, walking, marching and hiking; Z23 Encounter for immunization
CPT/HCPCS: 90471; 99284; 70450; 70486; 72125; 73030; 73110; 73130; 99282

== ENCOUNTER → 2022-04-28 10:36 | Outpatient (BNVA) | payer MEDICARE, SELFPAY | PROVIDERS: PCP Student in an Organized Health Care Education/Training Program; Visit Provider Internal Medicine Cardiovascular Disease | DX: Z91.14 Patient's other noncompliance with medication regimen (principal); I48.0 Paroxysmal atrial fibrillation | CPT/HCPCS: 99211; 99213 ==

== ENCOUNTER 2022-11-30 03:07 | Outpatient (CLI) | payer MEDICARE, SELFPAY ==
[2022-11-30 13:04] LABS: Abs Immature Grans 0.01 10^3/uL (0.0-0.06); Absolute Basophil Count 0.07 10^3/uL (0.0-0.2); Absolute Eosinophil Count 0.55 10^3/uL (0.0-0.7); Absolute Lymphocyte Count 1.76 10^3/uL (1.2-3.4); Absolute Monocyte Count 0.83 10^3/uL (0.1-0.8); Absolute Neutrophil Count 4.12 10^3/uL (1.2-6.7); Eosinophils % 7.5; HCT 40.1 % (36.0-46.0); HGB 13.6 g/dL (11.2-15.7); Immature Grans % 0.1; MCH 33.3 pg (27.0-33.0); MCHC 33.9 % (32.0-36.0); MCV 98 fL (80-95); MPV 9.2 fL (8.0-11.0); Monocytes % 11.3; Neutrophils % 56.1; Platelet Count 232 10^3/uL (130-400); RBC 4.09 10^6/uL (3.93-5.22); RDW-SD 46.2 fL; WBC 7.34 10^3/uL (4.4-10.8)
[2022-11-30 13:53] LABS: BUN 21 mg/dL (7-18); CREATININE 1.2 mg/dL (0.55-1.02); Glucose 116 mg/dL (74-106)
[2022-11-30 13:54] LABS: Anion Gap 8.2 mmol/L (3-11); CO2 29.8 mmol/L (21.0-32.0); Chloride 104 mmol/L (98-107); Estimated GFR 45.76 (mL/min/1.73m2); Potassium 4.1 mmol/L (3.5-5.1); Sodium 142 mmol/L (136-145); TSH (W/Ref FT4) 2.75 uIU/mL (0.36-3.74)
== END 2022-11-30 03:08 | disposition home or self-care (01) ==
LOC: LBO 03:08
PROVIDERS: PCP Student in an Organized Health Care Education/Training Program; Referring Provider Student in an Organized Health Care Education/Training Program; Visit Provider Student in an Organized Health Care Education/Training Program
DX: I48.91 Unspecified atrial fibrillation (principal); N18.30 Chronic kidney disease, stage 3 unspecified; M53.3 Sacrococcygeal disorders, not elsewhere classified
CPT/HCPCS: 36415; 80048; 84443; 85025

== ENCOUNTER 2023-01-18 11:41 | Emergency (ER) | payer MEDICARE, SELFPAY ==
[2023-01-18] VITALS (17 sets, daily range): BP systolic 120–158; BP diastolic 71–87; PULSE 64–111; RESP 14–24; TEMP 36.3–36.4; O2SAT 95–99
--- NOTE | 2023-01-18 11:30 | RT.EKG_ITS ---
APPROVED REPORT Exam: Resting ECG Reason for Exam: chest pain, sob Patient Location: E HR:95 bpm ECG Measurements Heart Rate 95 AXIS LA [id number] P [id number] QRSd 71 QRS 9 QT 356 T 67 QTc 481 Conclusion Atrial fibrillation...V-rate 74-122, irreg A-activity Ventricular premature complex...V complex w/ short R-R interval Narrow complex rate controlled atrial fibrillation at a rate of 95. Normal axis. Intervals within n ormal limits. No ST segment abnormalities. T wave flattening in aVL appears similar to prior dated last year. Compared to prior atrial fibrillation has replaced normal sinus rhythm.
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
--- NOTE | 2023-01-18 12:00 | DI.RAD_ITS ---
Exam(s) XR CHEST 2V PA LATERAL EXAM: XR CHEST 2V PA LATERAL CLINICAL HISTORY: Shortness of breath TECHNIQUE: 2D digital imaging was performed of the chest. Two images were obtained. PA and lateral views were obtained. COMPARISON: CR,XR XR CHEST 2V PA LATERAL from 03/06/2020 FINDINGS: MEDIASTINUM: Normal. HEART: Normal. PULMONARY VASCULATURE: Normal. LUNGS: Clear. PLEURAL SPACE: No pleural effusion or pneumothorax. BONE:Within normal limits for the patient's age. OTHER FINDINGS:Normal. IMPRESSION: No acute pulmonary findings. DATA REPOSITORY: RADIATION DOSE DELIVERED:
[2023-01-18 12:29] LABS: Abs Immature Grans 0.02 10^3/uL (0.0-0.06); Absolute Basophil Count 0.06 10^3/uL (0.0-0.2); Absolute Eosinophil Count 0.31 10^3/uL (0.0-0.7); Absolute Lymphocyte Count 1.72 10^3/uL (1.2-3.4); Absolute Monocyte Count 0.73 10^3/uL (0.1-0.8); Absolute Neutrophil Count 4.48 10^3/uL (1.2-6.7); Basophils % 0.8; Eosinophils % 4.2; HCT 41.8 % (36.0-46.0); HGB 14.7 g/dL (11.2-15.7); Immature Grans % 0.3; Lymphocytes % 23.5; MCH 33.4 pg (27.0-33.0); MCHC 35.2 % (32.0-36.0); MCV 95 fL (80-95); MPV 9.3 fL (8.0-11.0); Neutrophils % 61.2; Platelet Count 262 10^3/uL (130-400); RDW 12.6 % (11.7-14.6); RDW-SD 44.3 fL; WBC 7.32 10^3/uL (4.4-10.8)
[2023-01-18 12:56] LABS: Anion Gap 8.8 mmol/L (3-11); BUN 25 mg/dL (7-18); CO2 25.2 mmol/L (21.0-32.0); CREATININE 1.4 mg/dL (0.55-1.02); Chloride 104 mmol/L (98-107); Estimated GFR 38.03 (mL/min/1.73m2); Glucose 137 mg/dL (74-106); Magnesium 2.1 mg/dL (1.8-2.4); NT-proBNP 1205 pg/mL (<300); Potassium 3.9 mmol/L (3.5-5.1); Sodium 138 mmol/L (136-145); Troponin I < 50 ng/L (<or=60)
--- NOTE | 2023-01-18 13:00 | DI.CT_ITS ---
Exam(s) CT CHEST PE CTA EXAM: CT CHEST PE CTA CLINICAL HISTORY: Positive D-dimer shortness of breath. TECHNIQUE: Imaging Protocol: Axial CT angiography was performed with multi-slice acquisition and mu lti-planar and/or 3D reconstructions. CONTRAST MATERIAL: Intravenous: Omnipaque 350 contrast volume:100 mL COMPARISON: CR XR CHEST 2V PA LATERAL from 01/18/2023 FINDINGS: The examination is limited due to patient motion artifact. Tracheobronchial tree: Patent where visualized. Pulmonary parenchyma: There is poor inspiration with areas of air trapping present. No focal consoli dating infiltrates are seen. There is a 5 mm nodule in the medial aspect of the right lower lobe. N o architectural distortion. Pulmonary Arteries: No evidence of filling defect to suggest pulmonary emboli. Mediastinum and Tayla: No dominant adenopathy or fluid collection. The esophagus is unremarkable. Visualized thyroid gland: Unremarkable. Nonspecific calcification is seen in the right lobe of the t hyroid gland. Pleura: No effusion or pneumothorax. Heart: Mild cardiomegaly. Mild coronary artery calcification. No pericardial effusion. Aorta: Thoracic aorta non-dilated. The thoracic aorta is not adequately opacified for evaluation of d issection. Atherosclerosis is present. Upper abdomen: Unremarkable. Soft tissues: Unremarkable. Bones: Within normal limits for the patient's age. IMPRESSION: 1. No evidence of pulmonary embolism or aneurysm. 2. 5 mm nodule in the right lower lobe. In low risk patients, no follow-up is necessary early requir ed. In high risk patients (history of smoking or other risk factors), optional CT scan in 12 months may be obtained. (Guillaume et al, 2017). 3. Findings were discussed with Dr. Jean-Baptiste at 1:40 p.m. on 01/18/2023. RADIATION DOSE DELIVERED: 375.82mGy.cm Total DLP DATA REPOSITORY: All CT scans at this facility are submitted to the National Radiology Data Registry (NRDR) Dose Index Registry (DIR) with the [employer] (ACR). RADIATION OPTIMIZATION: All CT scans at this facility use at least one of these dose optimization te chniques: automated exposure control; mA and/or kV adjustment per patient size (includes targeted exa ms where dose is matched to clinical indication); or iterative reconstruction.
[2023-01-18 13:07] LABS: D-Dimer 1069 ng/mlFEU (<500)
[2023-01-18] MEDS: Normal Saline - Diluent 50 ML VIAL IJ (13:32)
[2023-01-18] MEDS: Omnipaque 350 MG/ML 500 ML BTL-Imaging package 100 ML IJ (13:32)
--- NOTE | 2023-01-18 14:20 | NUR.NOTE ---
Nursing Note: Referral for Echocardiogram / SOB faxed to DI. Follow up with PCP. To bw done within 1 week.
--- NOTE | 2023-01-18 15:24 | NUR.NOTE ---
Nursing Note: Referral faxed to PCP for pulmonary nodule/ needs CT within a year. Referral faxed to PCP for SOB,follow up on echo order/schedule appt after echo.
== END 2023-01-18 14:20 ==
LOC: ER 11:55
PROVIDERS: Emergency Provider Emergency Medicine; PCP Student in an Organized Health Care Education/Training Program
DX: I48.91 Unspecified atrial fibrillation (principal); R91.1 Solitary pulmonary nodule; R73.9 Hyperglycemia, unspecified; Z79.01 Long term (current) use of anticoagulants
CPT/HCPCS: 36415; 71275; 80048; 93005; 93308; 99285; 71046; 83735; 83880; 84484; 85025; 85379; 93010; 99283

== ENCOUNTER 2023-01-26 00:25 | Outpatient (CLI) | payer MEDICARE, SELFPAY ==
--- NOTE | 2023-01-26 | DI.US_ITS ---
APPROVED REPORT EXAM: Comprehensive 2D, Doppler, and color-flow Echocardiogram Patient Location: Out-Patient Train Operations Manager: Shabnam Townsend RDCS (AE) Indications: SOB Other Information Study Quality: Fair. Technically limited study due to arrhythmia. . Conclusion Normal left ventricular wall thickness and chamber size. Estimated ejection fraction is 45 to 50% wi th global hypokinesis Normal right ventricular size and systolic function Left atrium is mildly dilated. Right atrium is normal in size There is no structural or hemodynamically significant valvular disease Estimated right ventricular systolic pressure 30 mmHg Patient was in atrial fibrillation throughout with significant [id number] variation , heart rates g reater than 100 Wall motion Left Ventricle Technically limited parasternal imaging, arrhythmia Left ventricular systolic function is mildly decr eased. No segmental wall motion abnormalities are noted LVEF is 45-50%. Right Ventricle The right ventricle is normal size. The right ventricular systolic function is normal. Atria The left atrium size mildly dilated The right atrium size is normal. The interatrial septum is intact with no evidence for an atrial septal defect. Aortic Valve The aortic valve is normal in structure. Aortic valve is trileaflet. There is no aortic valvular sten osis. Mild aortic regurgitation. Mitral Valve The mitral valve is normal in structure. No evidence of mitral valve stenosis. Trace mitral regurgita tion. Tricuspid Valve The tricuspid valve is normal in structure. There is no tricuspid valve stenosis. Mild to moderate tr icuspid regurgitation. Pulmonic Valve The pulmonary valve is normal in structure. There is no pulmonic valvular stenosis. Trace pulmonic re gurgitation. Great Vessels The aortic root is normal in size. The ascending aorta is normal in size. Aortic arch is not well vis ualized. IVC is normal in size and collapses >50% with inspiration. Pericardium There is no pericardial effusion. 2D Dimensions Ao Root d 2.45 cm F: 2.7 - 3.3 LV Vol A2C d MOD 62.6 mL RA Area A4C 14.76 cm2 LV Vol A4C d MOD 48.2 mL RA Vol/ BSA A4C s A-L 20.8 mL/m2 LA vol/ BSA A2C s A-L 33.5 mL/m2 Ao Asc Diam d 3.16 cm F: 2.3 - 3.1 LA vol/ BSA A4C s A-L 25.5 mL/m2 LVEF (Rod's) 44.88 % F: 54 - 74 LA Vol/ BSA Biplane s A-L 29.4 mL/m2 LV Volume 44.57 mL F: 46 - 106 LA Area A4C s MOD 16.67 cm2 LV Volume Index 26.21 mL/m2 F: 29 - 61 LA Area A2C s MOD 19.16 cm2 LV Vol Biplane MOD 56.1 mL LV EF A4C MOD 41.2 % LV EF A2C MOD 47.7 % LV EF Biplane MOD 44.9 % SV 25.16 mL SV Index 14.84 mL/m2 M-Mode TAPSE 1.43 cm (M/F) >1.7 LV Diastology MV E' medial 0.100 (>0.07 m/s) E/A Ratio 1.8 LV E/e MED 8.00 (<14) MV E Vmax 0.80 (0.4-1.3 m/s) MV E' lateral 0.110 (>0.1 m/s) MV A Vmax 0.45 (0.4-1.3 m/s) LV E/e LAT 7.30 (<14) MV E/A Ratio 1.77 MV E/E' medial 8.01 MV E/E' lateral 7.30 Aortic Valve LVOT Area 2.82 cm2 AoV Area Vmax 2.65 cm2 LVOT Vmax 1.11 m/s AoV Area/ BSA (Vmax) 1.56 cm2/m2 LVOT Mean Mainor. 0.76 m/s MARTÍN Mean Mainor. 2.29 cm2 LVOT Peak Grad 4.9 mmHg MARTÍN Mean Mainor. Index 1.35 cm2/m2 LVOT Mean Grad 2.5 mmHg LVOT VTI 0.177 m LVOT Diam s 1.85 cm AoV Vmax 1.19 m/s Velocity Ratio 0.93 AoV Mean Mainor. 0.94 m/s AoV Peak Grad 5.6 mmHg LVOT SV 49.99 mL AoV Mean Grad 3.6 mmHg AoV VTI 0.211 m AoV Area VTI 2.37 cm2 AoV Area/ BSA (VTI) 1.40 cm/m2 Mitral Valve MV DT 198 (160-240 msec) MV PHT 58 msec MV Area PHT 3.82 cm2 MV VTI 0.174 m MV Area VTI 2.87 (4.0-6.0 cm2) Pulmonary Valve PV Vmax 0.89 (0.5-1.5 m/s) RVOT Peak Gr. 1.51 mmHg PV Peak Grad 3.2 mmHg RVOT Mean Gr. 0.70 mmHg PV Mean Grad 1.6 mmHg RVOT VTI 0.107 m PV VTI 0.159 m RVOT Vmax 0.61 m/s Tricuspid Valve TR Peak Grad 27.1 mmHg TR Vmax 2.60 m/s RA Pressure 3.00 mmHg RVSP (TR) 30.1 mmHg
== END 2023-01-26 00:45 ==
LOC: DI 00:25
PROVIDERS: PCP Student in an Organized Health Care Education/Training Program; Visit Provider Emergency Medicine
DX: R06.02 Shortness of breath (principal)
CPT/HCPCS: 93306

== ENCOUNTER 2023-02-08 02:53 | Outpatient (CLI) | payer MEDICARE, SELFPAY ==
[2023-02-08 11:28] LABS: BUN 25 mg/dL (7-18); CREATININE 1.3 mg/dL (0.55-1.02); Calcium 9.3 mg/dL (8.5-10.1); Chloride 104 mmol/L (98-107); Estimated GFR 41.57 (mL/min/1.73m2); Glucose 102 mg/dL (74-106); Potassium 4.7 mmol/L (3.5-5.1); Sodium 140 mmol/L (136-145)
== END 2023-02-08 02:54 | disposition home or self-care (01) ==
PROVIDERS: PCP Student in an Organized Health Care Education/Training Program; Referring Provider Student in an Organized Health Care Education/Training Program; Visit Provider Student in an Organized Health Care Education/Training Program
DX: R79.89 Other specified abnormal findings of blood chemistry (principal)
CPT/HCPCS: 36415; 80048

== ENCOUNTER 2023-02-13 04:09 | Outpatient (CLI) | payer MEDICARE, SELFPAY ==
[2023-02-13] MEDS: Inhaler, Assist Device 1 EACH MC (14:30)
[2023-02-13] MEDS: Albuterol HFA 18 GM 200 PUFF INH IH (14:30)
--- NOTE | 2023-02-15 09:47 | W.PFT ---
Date of service: 02/13/23 Time of Service: 13:27 Pulmonary Function Test Result Indications: Lung nodule Interpretation Spirometry: There is no airflow limitation. No significant bronchodilator response. Lung Volumes: Normal lung volumes Diffusion Capacity: Normal diffusion Airway Pressure: Normal airways resistance Impression Normal pulmonary function. Clinical Correlation therefore is recommended.
== END 2023-02-13 04:10 | disposition home or self-care (01) ==
LOC: RT 04:09
PROVIDERS: PCP Student in an Organized Health Care Education/Training Program; Visit Provider Student in an Organized Health Care Education/Training Program
DX: J45.909 Unspecified asthma, uncomplicated (principal)
CPT/HCPCS: 94060; 94726; 94729

== ENCOUNTER 2023-04-05 02:59 | Outpatient (CLI) | payer MEDICARE, SELFPAY ==
[2023-04-05 08:27] LABS: Anion Gap 8.3 mmol/L (3-11); BUN 23 mg/dL (7-18); CO2 27.7 mmol/L (21.0-32.0); CREATININE 1.2 mg/dL (0.55-1.02); Calcium 8.9 mg/dL (8.5-10.1); Calculated LDL 102 mg/dL (<100); Chloride 107 mmol/L (98-107); Cholesterol 193 mg/dL (<200); Estimated GFR 45.76 (mL/min/1.73m2); Glucose 102 mg/dL (74-106); HDL Cholesterol 81 mg/dL (40-60); Magnesium 2.1 mg/dL (1.8-2.4); Potassium 4.3 mmol/L (3.5-5.1); Sodium 143 mmol/L (136-145); Triglyceride 51 mg/dL (<150)
[2023-04-05 08:50] LABS: Vitamin D 25 Total 60.6 ng/mL (30-100)
== END 2023-04-05 03:00 | disposition home or self-care (01) ==
LOC: LBO 02:59
PROVIDERS: Absent Provider Student in an Organized Health Care Education/Training Program; PCP Student in an Organized Health Care Education/Training Program; Referring Provider Student in an Organized Health Care Education/Training Program; Visit Provider Student in an Organized Health Care Education/Training Program
DX: G45.9 Transient cerebral ischemic attack, unspecified (principal); N18.32 Chronic kidney disease, stage 3b; N17.9 Acute kidney failure, unspecified; I48.0 Paroxysmal atrial fibrillation; N95.2 Postmenopausal atrophic vaginitis; R79.89 Other specified abnormal findings of blood chemistry; M85.88 Other specified disorders of bone density and structure, other site
CPT/HCPCS: 36415; 80048; 80061; 82306; 83735

== ENCOUNTER → 2023-06-29 14:26 | Outpatient (CLI) | payer MEDICARE, SELFPAY ==
--- NOTE | 2023-06-29 13:30 | DI.US_ITS ---
Exam(s) US RENAL EXAM: US RENAL CLINICAL HISTORY: hematuria. Please evaluate kidneys and bladder, R31.9. TECHNIQUE: Olivares scale, color and spectral Doppler were used. COMPARISON: No exams were available for comparison FINDINGS: Renal size in cm: Right: 9.5 left: 10.3 Echogenicity: Normal Hydronephrosis: No Cyst or mass: No Nephrolithiasis: No Bladder:Normal. No stone or mass visible. Prevoid vol: 248 cc Postvoid vol:0 cc IMPRESSION: Negative renal ultrasound. DATA REPOSITORY:
== END ==
PROVIDERS: PCP Student in an Organized Health Care Education/Training Program; Visit Provider Physician Assistant
DX: R31.9 Hematuria, unspecified (principal)
CPT/HCPCS: 76770

== ENCOUNTER 2023-06-29 20:48 | Outpatient (REF) | payer MEDICARE, SELFPAY ==
[2023-06-29 21:04] LABS: Abs Immature Grans 0.02 10^3/uL (0.0-0.06); Absolute Basophil Count 0.05 10^3/uL (0.0-0.2); Absolute Eosinophil Count 0.26 10^3/uL (0.0-0.7); Absolute Lymphocyte Count 1.61 10^3/uL (1.2-3.4); Absolute Neutrophil Count 3.78 10^3/uL (1.2-6.7); Basophils % 0.8; HCT 39.3 % (36.0-46.0); HGB 13.4 g/dL (11.2-15.7); Immature Grans % 0.3; Lymphocytes % 24.7; MCH 33.4 pg (27.0-33.0); MCHC 34.1 % (32.0-36.0); MCV 98 fL (80-95); MPV 10.2 fL (8.0-11.0); Monocytes % 12.3; Neutrophils % 57.9; Platelet Count 284 10^3/uL (130-400); RBC 4.01 10^6/uL (3.93-5.22); RDW 12.6 % (11.7-14.6); RDW-SD 45.2 fL; WBC 6.52 10^3/uL (4.4-10.8)
[2023-06-29 22:16] LABS: Anion Gap 8.9 mmol/L (3-11); BUN 25 mg/dL (7-18); CO2 27.1 mmol/L (21.0-32.0); CREATININE 1.1 mg/dL (0.55-1.02); Calcium 9.5 mg/dL (8.5-10.1); Chloride 102 mmol/L (98-107); Glucose 102 mg/dL (74-106); Potassium 4.2 mmol/L (3.5-5.1); Sodium 138 mmol/L (136-145)
== END 2023-06-29 20:49 | disposition home or self-care (01) ==
LOC: LBN 20:48
PROVIDERS: PCP Student in an Organized Health Care Education/Training Program; Visit Provider Physician Assistant
DX: N39.0 Urinary tract infection, site not specified (principal); R31.9 Hematuria, unspecified; N76.0 Acute vaginitis
CPT/HCPCS: 80048; 85025; 87086; 87480; 87510; 87660

== ENCOUNTER → 2023-08-17 15:02 | Outpatient (CLI) | payer MEDICARE, SELFPAY ==
--- NOTE | 2023-08-17 14:45 | DI.RAD_ITS ---
Exam(s) XR CHEST 2V PA LATERAL EXAM: XR CHEST 2V PA LATERAL CLINICAL HISTORY: r/o pneumonia, cough, bronchitis, hx recurrent pneumonia, R05.9, J40,Z87.01 TECHNIQUE: 2D digital imaging was performed of the chest. Two images were obtained. PA and lateral views were obtained. COMPARISON: CR XR CHEST 2V PA LATERAL from 01/18/2023 FINDINGS: MEDIASTINUM: Normal. HEART: Normal. PULMONARY VASCULATURE: Normal. LUNGS: Clear. PLEURAL SPACE: No pleural effusion or pneumothorax. BONE:Within normal limits for the patient's age. OTHER FINDINGS:Normal. IMPRESSION: No acute pulmonary findings. DATA REPOSITORY: RADIATION DOSE DELIVERED:
== END ==
PROVIDERS: PCP Student in an Organized Health Care Education/Training Program; Visit Provider Student in an Organized Health Care Education/Training Program
DX: J40 Bronchitis, not specified as acute or chronic (principal); R05.9 Cough, unspecified; Z87.01 Personal history of pneumonia (recurrent)
CPT/HCPCS: 71046

== ENCOUNTER 2023-11-20 03:22 | Outpatient (CLI) | payer MEDICARE, SELFPAY ==
[2023-11-20 13:50] LABS: Folate > 20.0 ng/mL (8.6-20.0)
[2023-11-20 14:01] LABS: Anion Gap 8.3 mmol/L (3-11); BUN 22 mg/dL (7-18); CO2 28.7 mmol/L (21.0-32.0); CREATININE 1.3 mg/dL (0.55-1.02); Calcium 9.5 mg/dL (8.5-10.1); Chloride 105 mmol/L (98-107); Estimated GFR 41.31 (mL/min/1.73m2); Glucose 123 mg/dL (74-106); Potassium 4.3 mmol/L (3.5-5.1); Sodium 142 mmol/L (136-145); Vitamin B12 249 pg/mL (193-986)
== END 2023-11-20 03:23 | disposition home or self-care (01) ==
LOC: LBO 03:23
PROVIDERS: PCP Student in an Organized Health Care Education/Training Program; Visit Provider Student in an Organized Health Care Education/Training Program
DX: Z91.89 Other specified personal risk factors, not elsewhere classified (principal); N18.30 Chronic kidney disease, stage 3 unspecified
CPT/HCPCS: 36415; 80048; 82607; 82746

== ENCOUNTER → 2023-12-21 00:56 | Outpatient (CLI) | payer MEDICARE, SELFPAY ==
--- NOTE | 2023-12-21 08:00 | DI.CT_ITS ---
Exam(s) CT CHEST WO EXAM: CT CHEST WO CLINICAL HISTORY: f/u incidental pulmonary nodule,r91.1. TECHNIQUE: Imaging protocol: Axial computed tomography images were obtained and coronal and sagittal reformatted images were created and reviewed. CONTRAST MATERIAL: Noncontrast COMPARISON: CT CT CHEST PE CTA from 01/18/2023 FINDINGS: Pulmonary parenchyma: No consolidation. No change 4 millimeter perifissural nodule medially between the right middle and lower lobes. No follow-up recommended. No suspicious nodules. Emphysema: None. Tracheobronchial tree: No mucous plugging. No bronchiectasis . Interstitial changes: None. Pleura: No effusion or pneumothorax. Heart: The heart is mildly dilated. The coronary arteries show mildcalcifications. Aorta: Thoracic aorta non-dilated. Mildatherosclerotic changes. Lymph nodes: No enlarged lymph nodes. Bones: Degenerative changes are seen. No evidence of compression fracture. Upper abdomen: Unremarkable. Soft tissues: Unremarkable. IMPRESSION: Stable 4 millimeter perifissural nodule. No further follow-up recommended. RADIATION DOSE DELIVERED: Total DLP Total DLP DATA REPOSITORY: All CT scans at this facility are submitted to the National Radiology Data Registry (NRDR) Dose Index Registry (DIR) with the [employer] (ACR). RADIATION OPTIMIZATION: All CT scans at this facility use at least one of these dose optimization te chniques: automated exposure control; mA and/or kV adjustment per patient size (includes targeted exa ms where dose is matched to clinical indication); or iterative reconstruction.
== END ==
PROVIDERS: PCP Student in an Organized Health Care Education/Training Program; Visit Provider Student in an Organized Health Care Education/Training Program
DX: R91.1 Solitary pulmonary nodule (principal)
CPT/HCPCS: 71250

== ENCOUNTER 2023-12-27 05:05 | Outpatient (CLI) | payer MEDICARE, SELFPAY ==
[2023-12-27 11:15] LABS: HGB 13.7 g/dL (11.2-15.7)
[2023-12-27 11:52] LABS: Anion Gap 9.7 mmol/L (3-11); BUN 29 mg/dL (7-18); CO2 25.3 mmol/L (21.0-32.0); CREATININE 1.2 mg/dL (0.55-1.02); Calcium 8.8 mg/dL (8.5-10.1); Chloride 106 mmol/L (98-107); Estimated GFR 45.48 (mL/min/1.73m2); Glucose 103 mg/dL (74-106); Magnesium 2.1 mg/dL (1.8-2.4); Potassium 4.4 mmol/L (3.5-5.1); Sodium 141 mmol/L (136-145)
== END 2023-12-27 05:06 | disposition home or self-care (01) ==
LOC: LBO 05:05
PROVIDERS: Absent Provider Student in an Organized Health Care Education/Training Program; PCP Student in an Organized Health Care Education/Training Program; Referring Provider Student in an Organized Health Care Education/Training Program; Visit Provider Student in an Organized Health Care Education/Training Program
DX: Z91.89 Other specified personal risk factors, not elsewhere classified (principal); R94.30 Abnormal result of cardiovascular function study, unspecified; I48.0 Paroxysmal atrial fibrillation; Z86.2 Personal history of diseases of the blood and blood-forming organs and certain disorders involving the immune mechanism
CPT/HCPCS: 36415; 80048; 83735; 85018

== ENCOUNTER 2024-01-12 05:40 | Inpatient (IN) | payer MEDICARE, SELFPAY ==
[2024-01-12] VITALS (40 sets, daily range): BP systolic 122–199; BP diastolic 58–115; PULSE 57–85; RESP 10–25; TEMP 35.7–36.4; O2SAT 95–99
--- NOTE | 2024-01-12 05:30 | RT.EKG_ITS ---
APPROVED REPORT Exam: Resting ECG Reason for Exam: chest discomfort Patient Location: E HR:61 bpm ECG Measurements Heart Rate 61 AXIS KS 164 P 61 QRSd 74 QRS 29 QT 445 T 61 QTc 448 Conclusion Sinus rhythm...normal P axis, V-rate 60- 99
--- NOTE | 2024-01-12 06:26 | DI.CT_ITS ---
Exam(s) CT BRAIN NECK CTA EXAM: CT BRAIN NECK CTA CLINICAL HISTORY: facila numbness, stroke protocol, recent watchman procedur. TECHNIQUE: Imaging Protocol: Axial CT angiography was performed with multi-slice acquisition and mu lti-planar and MIP reconstructions. CONTRAST MATERIAL: Intravenous: Omnipaque 350 Contrast volume:85 mL COMPARISON: CT CT HEAD CERV SPINE FACIAL WO from 04/27/[address] CHEST PE CTA from 01/18/2023 FINDINGS: CT Head W/O and W contrast: Ventricles and Extra axial spaces: Normal in size and morphology for the patient's age. Hemorrhage: None. Cerebral parenchyma: No evidence of acute infarct or mass. Mild white matter changes of small vessel disease. Midline shift: None. Brainstem/Cerebellum: No acute findings.. Calvarium: Normal. Visualized Paranasal sinuses/Mastoids: Clear. Soft Tissues: Unremarkable. Enhancement: Normal. CTA Brain W: Internal Carotid Arteries: Petrous: Normal. Cavernous: Normal. Cerebral: Normal. Middle Cerebral Arteries: Right: No aneurysm, occlusion or significant stenosis. Left: No aneurysm, occlusion or significant stenosis. Anterior Cerebral Arteries: Right: No aneurysm, occlusion or significant stenosis. Left: No aneurysm, occlusion or significant stenosis. Posterior cerebral Arteries: Right: No aneurysm, occlusion or significant stenosis. Left: No aneurysm, occlusion or significant stenosis. Vertebral Arteries: Right: No aneurysm, occlusion or significant stenosis. Left: No aneurysm, occlusion or significant stenosis. Basilar Artery: No aneurysm, occlusion or significant stenosis. CTA Neck W: Common Carotid: Right: No dissection, occlusion or significant stenosis. Left: Calcification at the bulb. No dissection, occlusion or significant stenosis. External Carotid: Right: No dissection, occlusion or significant stenosis. Left: No dissection, occlusion or significant stenosis. Internal Carotid: Right: No dissection, occlusion or significant stenosis. Left: No dissection, occlusion or significant stenosis. Vertebral Artery: Right: No dissection, occlusion or significant stenosis. Left: No dissection, occlusion or significant stenosis. Lung Apices: Normal. Bones: No acute abnormality. Degenerative changes in the cervical spine. Soft Tissues: Normal. IMPRESSION: 1. CTA brain: Normal CTA examination of the [place]. 2. Head CT: Unremarkable CT Head. 3. CTA neck: Calcification at the left common carotid bulb. No significant stenosis. No evidence of dissection. RADIATION DOSE DELIVERED: Total DLP DATA REPOSITORY: All CT scans at this facility are submitted to the National Radiology Data Registry (NRDR) Dose Index Registry (DIR) with the [employer] (ACR). RADIATION OPTIMIZATION: All CT scans at this facility use at least one of these dose optimization te chniques: automated exposure control; mA and/or kV adjustment per patient size (includes targeted exa ms where dose is matched to clinical indication); or iterative reconstruction.
[2024-01-12 06:32] LABS: Abs Immature Grans 0.02 10^3/uL (0.0-0.06); Absolute Basophil Count 0.07 10^3/uL (0.0-0.2); Absolute Eosinophil Count 0.36 10^3/uL (0.0-0.7); Absolute Lymphocyte Count 1.83 10^3/uL (1.2-3.4); Absolute Monocyte Count 0.88 10^3/uL (0.1-0.8); Absolute Neutrophil Count 3.55 10^3/uL (1.2-6.7); Eosinophils % 5.4; HCT 38.4 % (36.0-46.0); HGB 12.9 g/dL (11.2-15.7); Immature Grans % 0.3; Lymphocytes % 27.3; MCH 33.2 pg (27.0-33.0); MCHC 33.6 % (32.0-36.0); MCV 99 fL (80-95); MPV 9.4 fL (8.0-11.0); Monocytes % 13.1; Neutrophils % 52.9; Platelet Count 233 10^3/uL (130-400); RBC 3.89 10^6/uL (3.93-5.22); RDW 13.2 % (11.7-14.6); RDW-SD 48.3 fL; WBC 6.71 10^3/uL (4.4-10.8)
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
[2024-01-12 06:47] LABS: PTT Activated 23.9 sec (23.6-32.8); Prothrombin Time 10.5 sec (9.1-11.1)
[2024-01-12] MEDS: Normal Saline - Diluent 50 ML VIAL IJ (06:49)
[2024-01-12] MEDS: Omnipaque 350 MG/ML 100 ML BTL IJ (06:50)
[2024-01-12] MEDS: Normal Saline Flush 10 ML SYR IVP (06:51)
[2024-01-12 06:53] LABS: ALT 18 U/L (14-59); AST 17 U/L (15-37); Albumin 3.9 g/dL (3.4-5.0); Alkaline Phosphatase 69 U/L (46-116); BUN 21 mg/dL (7-18); Bilirubin, Total 0.4 mg/dL (0.2-1.0); CREATININE 1.2 mg/dL (0.55-1.02); Calcium 8.8 mg/dL (8.5-10.1); Chloride 106 mmol/L (98-107); Estimated GFR 45.48 (mL/min/1.73m2); Glucose 95 mg/dL (74-106); Sodium 143 mmol/L (136-145); Troponin I < 50 ng/L (< or =60)
[2024-01-12 07:29] LABS: Bilirubin Negative (Negative); Blood Trace-intact (Negative); Clarity Sl Cloudy (Clear); Glucose Negative (Negative); Ketones Negative (Negative); Leukocyte Esterase Negative (Negative); Nitrite Negative (Negative); Urobilinogen 0.2 mg/dL (Up to 0.2)
--- NOTE | 2024-01-12 07:38 | DI.VRAD_ITS ---
PROCEDURE INFORMATION: Exam: CTA Head With Contrast, Arteriography Exam date and time: 01/12/2024 6:40 AM Age: 83 years old Clinical indication: Stroke-like symptoms; Other: Facila numbness, stroke protocol, recent watchman procedur TECHNIQUE: Imaging protocol: Computed tomographic angiography of the head with contrast. Exam focused on the arteries. 3D rendering (Not supervised by radiologist): MIP and/or 3D reconstructed images were created by the technologist. Contrast material: ONIPAQUE 350; Contrast volume: 85 ml; Contrast route: INTRAVENOUS (IV); COMPARISON: CT BRAIN NECK CTA 04/24/2021 11:22 AM FINDINGS: ANTERIOR CIRCULATION: Right internal carotid artery: Intracranial segment is patent with no significant stenosis. No aneurysm. Right middle cerebral artery: No occlusion or significant stenosis. No aneurysm. Right anterior cerebral artery: No occlusion or significant stenosis. No aneurysm. Left internal carotid artery: Intracranial segment is patent with no significant stenosis. No aneurysm. Left middle cerebral artery: No occlusion or significant stenosis. No aneurysm. Left anterior cerebral artery: No occlusion or significant stenosis. No aneurysm. POSTERIOR CIRCULATION: Right vertebral artery: No occlusion or significant stenosis. No aneurysm. Left vertebral artery: No occlusion or significant stenosis. No aneurysm. Basilar artery: No occlusion or significant stenosis. No aneurysm. Right posterior cerebral artery: No occlusion or significant stenosis. No aneurysm. Left posterior cerebral artery: No occlusion or significant stenosis. No aneurysm. Brain: No definite mass, mass effect, or midline shift. Mild generalized cerebral atrophy with patchy periventricular leukomalacia consistent with chronic underlying small vessel ischemic disease. Cerebral ventricles: No ventriculomegaly. Bones/joints: Unremarkable. No acute fracture. Soft tissues: Unremarkable. IMPRESSION: 1. No acute findings. Normal CT angiogram of the brain. No large vessel occlusion identified. 2. Mild generalized cerebral atrophy with patchy periventricular leukomalacia consistent with chronic underlying small vessel ischemic disease. PROCEDURE INFORMATION: Exam: CTA Neck With Contrast Exam date and time: 01/12/2024 6:40 AM Age: 83 years old Clinical indication: Stroke-like symptoms; Other: Facila numbness, stroke protocol, recent watchman procedur TECHNIQUE: Imaging protocol: Computed tomographic angiography of the neck with contrast. Exam focused on the cervical segments of the vasculature. 3D rendering (Not supervised by radiologist): MIP and/or 3D reconstructed images were created by the technologist. Contrast material: ONIPAQUE 350; Contrast volume: 85 ml; Contrast route: INTRAVENOUS (IV); COMPARISON: CT BRAIN NECK CTA 04/24/2021 11:22 AM FINDINGS: The great vessels in the upper mediastinum and the proximal subclavian arteries bilaterally are normal. Right common carotid artery: No stenosis. No dissection or occlusion. Right internal carotid artery: No stenosis of the extracranial segment. No dissection or occlusion. Right external carotid artery: No occlusion or stenosis of the origin. Left common carotid artery: No stenosis. No dissection or occlusion. Left internal carotid artery: No stenosis of the extracranial segment. No dissection or occlusion. Left external carotid artery: No occlusion or stenosis of the origin. Right vertebral artery: No stenosis. No dissection or occlusion. Left vertebral artery: No stenosis. No dissection or occlusion. Soft tissues: Normal. No significant soft tissue swelling. Bones/joints: No acute fracture. IMPRESSION: No stenosis, dissection or occlusion of the arteries in the neck. REFERENCES: NASCET CRITERIA. The degree of stenosis in the cervical segment of the internal carotid artery is based on NASCET criteria. Normal is no stenosis. Mild is less than 50% stenosis. Moderate is 50-69% stenosis. Severe is 70% to 99% stenosis. Total occlusion is no detectable patent lumen. Dictated and Authenticated by: Stuart Galindo MD. Ordering:RONDA Corbin MD
[2024-01-12 07:45] LABS: WBC Negative HPF (0-5)
[2024-01-12 07:46] LABS: Bacteria Negative HPF (Negative); C & S Indicated? No; Casts Negative LPF (Negative); Crystals Few Amorphous HPF (Negative); Epithelial Cells Few HPF (Negative); Mucus Negative (Negative); RBC 0-2 HPF (0-2)
--- NOTE | 2024-01-12 09:02 | W.EDPROG ---
Date of service: 01/12/24 Time of Service: 09:03 Medical Decision Making And signed out to me pending teleneurology consult, they are recommending admission for telemetry monitoring and every 4 hours neurochecks and when able to obtaining an MRI and echo along with having a PT and speech evaluation. Discussed with patient and she is currently stable, NIH of 0, she agrees with admission, will discuss with hospitalist Quality:[facility] Health Related Social Needs: No Data to Display Sign Out Sign Out Data: Sign Out Comment: 83-year-old female, with recent Watchman surgical procedure on the (2 days ago), presents with right-sided facial numbness. She was seen by teleneurology from [facility] and had a CT and CTA of the head and neck. Laboratory workup was essentially negative. The patient has not had her morning aspirin or Plavix yet. The patient is not currently taking oral Eliquis. Awaiting a callback from teleneurology. Urine was negative for an infectious process. There does not appear to be an expanding hematoma in the right groin. The left groin rash is a folliculitis or contact dermatitis related to shaving for her procedure 2 days ago. The only outstanding thing is to follow-up on what ever management instructions as provided by [facility] neurology. Last updated by Shaquille Stinson MD at 01/12/24 08:09 Discharge Plan Disposition Patient Disposition: [facility]mit to [facility] Condition: Stable Discharge Details Chief Complaint: GenMedical Clinical Impression: Brain TIA Primary Care Provider: Lexi Rodriguez ED Provider: Naveed Nguyễn [place] Meds and New Rx's Prescriptions: No Action cholecalciferol (vitamin D3) 50 mcg (2,000 unit) capsule 50 mcg PO DAILY (DME) Dark Chocolate See Rx Instructions .Route .MEDSUPPLY Qty: 1 0RF Rx Instructions: OK in moderation triamcinolone acetonide 0.1 % ointment 1 applic topical TID Qty: 30 1RF Hold Instructions: Changed by Provider Rx Instructions: 02/02/21 per [facility] trust and estates attorney JWO clobetasol 0.05 % ointment 1 applic topical BID PRN (Reason: vaginal atrophy, inflammation) 14 Days Qty: 45 1RF estradiol [Estrace] 0.01 % (0.1 mg/gram) cream 0.5 g VG 2X week 360 Days Qty: 42.5 3RF Rx Instructions: Apply 0.5gm PV HS twice weekly acetaminophen 325 mg tablet 650 mg PO Q6H PRN clindamycin phosphate 1 % solution 1 applic topical BID PRN (Reason: To scalp ) clopidogrel 75 mg tablet 75 mg PO DAILY Patient Comments: TAKE ONE TABLET BY MOUTH EVERY DAY aspirin 81 mg tablet,delayed release (DR/EC) 81 mg PO DAILY
[2024-01-12] MEDS: Aspirin 81 MG CHEW PO (09:46)
[2024-01-12] MEDS: Clopidogrel 75 MG TAB PO (09:46)
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
[2024-01-12] MEDS: Enoxaparin 40 MG/0.4 ML SYR SC (12:44)
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
--- NOTE | 2024-01-12 14:30 | NUR.NOTE ---
Hemoccult stool test performed on floor on 01/12/24 at 1300 was negative. Abigail Hernandez RN
--- NOTE | 2024-01-12 17:30 | RT.EKG_ITS ---
APPROVED REPORT Exam: Resting ECG Reason for Exam: NEW AFIB Patient Location: I HR:101 bpm ECG Measurements Heart Rate 101 AXIS UT [id number] P [id number] QRSd 85 QRS 15 QT 387 T 44 QTc 502 Conclusion Atrial fibrillation...? atrial activity Ventricular premature complex...V complex w/ short R-R interval
[2024-01-13] VITALS (8 sets, daily range): BP systolic 111–157; BP diastolic 57–100; PULSE 85–97; RESP 17–18; TEMP 35.9–36.6; O2SAT 96–98
[2024-01-13 05:54] LABS: Abs Immature Grans 0.01 10^3/uL (0.0-0.06); Absolute Basophil Count 0.08 10^3/uL (0.0-0.2); Absolute Eosinophil Count 0.48 10^3/uL (0.0-0.7); Absolute Lymphocyte Count 1.47 10^3/uL (1.2-3.4); Absolute Monocyte Count 0.77 10^3/uL (0.1-0.8); Absolute Neutrophil Count 3.61 10^3/uL (1.2-6.7); Basophils % 1.2; Eosinophils % 7.5; HCT 40.7 % (36.0-46.0); HGB 13.9 g/dL (11.2-15.7); Immature Grans % 0.2; Lymphocytes % 22.9; MCH 33.1 pg (27.0-33.0); MCHC 34.2 % (32.0-36.0); MCV 97 fL (80-95); MPV 9.5 fL (8.0-11.0); Neutrophils % 56.2; Platelet Count 237 10^3/uL (130-400); RDW-SD 46.5 fL; WBC 6.42 10^3/uL (4.4-10.8)
[2024-01-13 06:04] LABS: Anion Gap 10.3 mmol/L (3-11); BUN 19 mg/dL (7-18); CO2 25.7 mmol/L (21.0-32.0); CREATININE 1.2 mg/dL (0.55-1.02); Calcium 8.9 mg/dL (8.5-10.1); Chloride 108 mmol/L (98-107); Estimated GFR 45.48 (mL/min/1.73m2); Glucose 107 mg/dL (74-106); Potassium 4.3 mmol/L (3.5-5.1); Sodium 144 mmol/L (136-145)
[2024-01-13 06:10] LABS: Calculated LDL 90 mg/dL (<100); Cholesterol 189 mg/dL (<200); HDL Cholesterol 83 mg/dL (40-60); Triglyceride 83 mg/dL (<150)
[2024-01-13 06:11] LABS: Hemoglobin A1C 5.9 % (<5.7)
[2024-01-13] MEDS: Cholecalciferol (Vitamin D3) 1,000 UNIT TAB 2000 UNITS PO (08:11)
[2024-01-13] MEDS: Clopidogrel 75 MG TAB PO (08:11)
[2024-01-13] MEDS: Aspirin E.C. 81 MG TABEC PO (08:11)
[2024-01-13] MEDS: Normal Saline Flush 10 ML SYR IVP ×2 (08:15→20:08)
--- NOTE | 2024-01-13 09:14 | PGE_ITS ---
<Statement entered by Daniel Torres - 01/13/24 15:02> patient agreed to start diltiazem for rate control after discussoin with her cardiology team, rate has improved. Date of Service Date of service: 01/13/24 Time of Service: 09:14 Assessment and Plan Assessment and plan (1) Brain TIA: Status: Acute Assessment and plan: CT negative in ED Neck CTA: negative MRI on Sunday pending Echo w bubbles pending Hgb A1C 5.9, lipid panel normal Already on ASA and plavix s/p Watchman Lipitor 40 started but pt stil may refuse after education Telemetry : SR initially then A-fib mostly RVR Neuro Q 4H (2) Atrial fibrillation: Status: Inactive Assessment and plan: Conversion from NSR around 6 PM last night PRN lopressor ordered for RVR not given and on hold d/t severe bradycardia history Oral diltiazem initiated, RVR up to 176 overnight and in AM but now reported HR with avctivity is 120- 130, and HR 85-92 while resting in bed -Patient stating calling [facility] to get approval for diltiazem. In the setting of the watchman procedure, the patient is really reluctant to take blood thinners, educated on possibility to be on blood thinner d/t MRI results in AM Qualifiers: Atrial fibrillation type: unspecified Qualified Code(s): I48.91 - Unspecified atrial fibrillation (3) On deep vein thrombosis (DVT) prophylaxis: Status: Acute Assessment and plan: Continue Lovenox (4) Discharge planning issues: Status: Acute Assessment and plan: No new needs CM to f/u Discussed with Dr. Torres Subjective Subjective Patient reports: no new complaints, feels better, tolerating liquids well, tolerating a regular diet, voiding w/o difficulty, flatus and bowel movement; denies diarrhea, blood in stool, nausea, vomiting, shortness of breath or fever Exam Narrative Exam Narrative: Constitutional The patient is sitting in chair comfortable and cooperative during the interview. The patient is well groomed without acute distress and has average body habitus HENMT: lower lip hyperesthesia with tingling and numbness resolved: normocephalic, no lymphadenopathy. Facial structures with normal appearance Eyes: Well aligned Neuro:alert and oriented to self, person, place, time and situation. No neurological focal deficit Resp: clear lung bilaterally Cardio: irregular rhythm,atrial fibrillationon tele HR max 176 this AM at 09:37 while ambulating; HR 110's to 120's at rest, S1, S2, no murmur, postive pulses X4 GI: Abdomen is not distended, soft and non tender, bowel sounds are present Extremities: strength 5/5 to bilateral lower and upper extremities Psych: RASS 0, congruent mood and normal affect. Objective Last Vital Signs Temp 35.9 C L 01/13/24 07:40 Pulse 85 01/13/24 07:40 Resp 17 01/13/24 07:40 BP 145/100 H 01/13/24 07:40 Pulse Ox 96 01/13/24 07:40 Laboratory Results - last 24 hr 01/13/24 05:46 WBC 6.42 RBC 4.20 Hgb 13.9 Hct 40.7 MCV 97 H MCH 33.1 H MCHC 34.2 RDW 13.0 Plt Count 237 MPV 9.5 Immature Gran % 0.2 Neutrophils % 56.2 Lymphocytes % 22.9 Monocytes % 12.0 Eosinophils % 7.5 Basophils % 1.2 Nucleated RBC % 0.0 Absolute Neutrophils 3.61 Absolute Lymphocytes 1.47 Absolute Monocytes 0.77 Absolute Eosinophils 0.48 Absolute Basophils 0.08 Sodium 144 Potassium 4.3 Chloride 108 H Carbon Dioxide 25.7 Anion Gap 10.3 BUN 19 H Creatinine 1.2 H Est GFR (CKD-EPI 2020) 45.48 Glucose 107 H Hemoglobin A1c 5.9 H Calcium 8.9 Triglycerides 83 Total Cholesterol 189 LDL Cholesterol, Calc 90 HDL Cholesterol 83 Time Spent with Patient Time Spent with Patient: >50 minutes Time was spent: preparing to see the patient(eg.review tests), obtaining and/or reviewing separately otained hiistory, ordering medications,tests, procedures, referring, communicating with other health career coach, indepentently interpreting results, counseling the patient and care coordination
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
[2024-01-13] MEDS: dilTIAZem 30 MG TAB PO ×2 (12:04→17:38)
[2024-01-13] MEDS: Enoxaparin 40 MG/0.4 ML SYR SC (12:07)
[2024-01-14] MEDS: dilTIAZem 30 MG TAB PO ×3 (01:11→12:15)
[2024-01-14 03:15] VITALS: BP 127/65; PULSE 74; RESP 17; TEMP 36.6; O2SAT 98
[2024-01-14 06:30] LABS: Abs Immature Grans 0.03 10^3/uL (0.0-0.06); Absolute Basophil Count 0.09 10^3/uL (0.0-0.2); Absolute Eosinophil Count 0.66 10^3/uL (0.0-0.7); Absolute Lymphocyte Count 2.03 10^3/uL (1.2-3.4); Absolute Monocyte Count 0.89 10^3/uL (0.1-0.8); Absolute Neutrophil Count 4.29 10^3/uL (1.2-6.7); Basophils % 1.1; Eosinophils % 8.3; HCT 43.4 % (36.0-46.0); HGB 15.1 g/dL (11.2-15.7); Immature Grans % 0.4; Lymphocytes % 25.4; MCH 33.4 pg (27.0-33.0); MCHC 34.8 % (32.0-36.0); MCV 96 fL (80-95); MPV 9.7 fL (8.0-11.0); Monocytes % 11.1; Neutrophils % 53.7; Platelet Count 250 10^3/uL (130-400); RBC 4.52 10^6/uL (3.93-5.22); RDW 12.9 % (11.7-14.6); RDW-SD 46.2 fL; WBC 7.99 10^3/uL (4.4-10.8)
[2024-01-14 06:37] LABS: Anion Gap 9.3 mmol/L (3-11); BUN 29 mg/dL (7-18); CO2 23.7 mmol/L (21.0-32.0); CREATININE 1.2 mg/dL (0.55-1.02); Calcium 9.1 mg/dL (8.5-10.1); Chloride 107 mmol/L (98-107); Estimated GFR 45.48 (mL/min/1.73m2); Glucose 111 mg/dL (74-106); Potassium 4.6 mmol/L (3.5-5.1); Sodium 140 mmol/L (136-145)
[2024-01-14 07:31] VITALS: BP 110/66; PULSE 74; RESP 17; TEMP 35.9; O2SAT 95
[2024-01-14] MEDS: Aspirin E.C. 81 MG TABEC PO (08:41)
[2024-01-14] MEDS: Clopidogrel 75 MG TAB PO (08:41)
[2024-01-14] MEDS: Cholecalciferol (Vitamin D3) 1,000 UNIT TAB 2000 UNITS PO (08:42)
[2024-01-14] MEDS: Normal Saline Flush 10 ML SYR IVP (08:42)
--- NOTE | 2024-01-14 09:41 | DI.MRI_ITS ---
Exam(s) MR BRAIN WO EXAM: MR BRAIN WO CLINICAL HISTORY: CVA TECHNIQUE: Multiplanar multisequence MRI of the brain was performed. COMPARISON: MR MR BRAIN WO from 01/09/2020 MR MR ANGIO BRAIN WO from 01/09/[address] BRAIN NECK CTA from 01/12/2024 FINDINGS: VENTRICLES AND EXTRA AXIAL SPACES: Normal in size and morphology for the patient's age. MIDLINE SHIFT: None. CEREBRAL PARENCHYMA: No focus of restricted diffusion to suggest acute infarct. No space-occupying le nguyen identified. There are multiple areas of hyperintense signal seen in the white matter most consis tent with chronic microvascular ischemic disease. HEMORRHAGE: None. BRAINSTEM/CEREBELLUM: Normal. CALVARIUM: Normal. VISUALIZED PARANASAL SINUSES/MASTOIDS:Clear. STANDING ROCK OF PATEL: Normal flow void. PITUITARY GLAND: Unremarkable. OTHER FINDINGS: None. IMPRESSION: 1. No evidence of an acute infarct. 2. Age-related cerebral atrophy and chronic microvascular ischemic disease. DATA REPOSITORY:
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
[2024-01-14] MEDS: Enoxaparin 40 MG/0.4 ML SYR SC (12:15)
[2024-01-14 12:19] VITALS: PULSE 64
--- NOTE | 2024-01-14 13:06 | PDOC.CMDIS ---
Date of service: 01/14/24 Time of Service: 13:07 LACE Index Scoring Tool Questions: Length of Stay (in days): 2 Was the patient admitted via the E.D.?: Yes Comorbidities: Cerebrovascular Disease (HX TIA) and Liver or Renal Disease E.D. Visits: 1 Answers: Total Score: 11 Risk of Readmission: High Risk Care Management Discharge Plan Reason for Hospitalization: TIA, Afib Discharge Plan: Kerry is discharged home via private vehicle with friends. Cardiac event recorder is ordered. She will follow up with community providers and her discharge plan of care as instructed. No new services are ordered prior to discharge. Patient/Family Education Needs: Review discharge instructions, limitations, medications and plan to follow up with community providers. Discuss ask me three. SDOH Health Related Social Needs: No Data to Display
--- NOTE | 2024-01-15 09:56 | NUR.NOTE ---
Accessed chart: received a Neurology Consult Note by fax. Checked to see if it was in the chart already and not finding it will send to Medical Records for scanning. Nursing Note:
== END 2024-01-14 14:04 | disposition home or self-care (01) | DRG 69 ==
LOC: ER 10:12 → MS 10:31
PROVIDERS: Emergency Medicine Emergency Medical Services; Nurse Practitioner Acute Care; Admitting Provider Family Medicine; Emergency Provider Emergency Medicine; PCP Student in an Organized Health Care Education/Training Program; Visit Provider Family Medicine
DX: G45.9 Transient cerebral ischemic attack, unspecified (principal); I48.0 Paroxysmal atrial fibrillation; Z95.818 Presence of other cardiac implants and grafts; N18.32 Chronic kidney disease, stage 3b; R91.1 Solitary pulmonary nodule; K58.1 Irritable bowel syndrome with constipation; L92.0 Granuloma annulare; M16.12 Unilateral primary osteoarthritis, left hip; Z96.653 Presence of artificial knee joint, bilateral; Z85.42 Personal history of malignant neoplasm of other parts of uterus; F34.1 Dysthymic disorder; Z87.820 Personal history of traumatic brain injury; R20.2 Paresthesia of skin; Z79.899 Other long term (current) drug therapy
CPT/HCPCS: 00123; 36415; 70496; 70498; 80048; 80053; 80061; 93005; 97161; 99285; J1650; 70551; 81003; 81015; 82270; 83036; 84484; 85025; 85610; 85730; 93010; 99223; 99233; 99239; J3490

== ENCOUNTER 2024-01-14 11:31 | Outpatient (CLI) | payer MEDICARE, SELFPAY | END 2024-01-14 11:32 | disposition home or self-care (01) | PROVIDERS: PCP Student in an Organized Health Care Education/Training Program; Visit Provider Student in an Organized Health Care Education/Training Program | DX: G45.9 Transient cerebral ischemic attack, unspecified (principal) | CPT/HCPCS: 93270 ==

== ENCOUNTER 2024-02-11 08:01 | Outpatient (CLI) | payer MEDICARE, SELFPAY ==
--- NOTE | 2024-02-11 09:11 | W.CARDEVENT ---
Date of service: 02/11/24 Time of Service: 09:11 Cardiac Event Recorder Referring Provider:: Lexi Rodriguez Indications:: TIA, PAF Cardiac Event Note: This is a cardiac event monitor. Patient was monitored for 15 days and 23 hours Rhythm was sinus 57% of the time, 43% of the time the patient was in atrial fibrillation Average heart rate while in atrial fibrillation was 94. Average heart rate overall was 81 There were no significant ventricular dysrhythmias. There were no pauses greater than 3 seconds. Minimum heart rate was 55
== END 2024-02-11 08:02 | disposition home or self-care (01) ==
LOC: CARDOPNVT 08:01
PROVIDERS: PCP Student in an Organized Health Care Education/Training Program; Visit Provider Internal Medicine Cardiovascular Disease
DX: G45.9 Transient cerebral ischemic attack, unspecified (principal); I48.0 Paroxysmal atrial fibrillation
CPT/HCPCS: 93272

== ENCOUNTER 2024-04-14 02:11 | Outpatient (CLI) | payer MEDICARE, SELFPAY ==
[2024-04-14 12:43] LABS: Abs Immature Grans 0.02 10^3/uL (0.0-0.06); Absolute Basophil Count 0.04 10^3/uL (0.0-0.2); Absolute Lymphocyte Count 1.45 10^3/uL (1.2-3.4); Absolute Monocyte Count 0.63 10^3/uL (0.1-0.8); Absolute Neutrophil Count 3.83 10^3/uL (1.2-6.7); Basophils % 0.6 %; Eosinophils % 4.8 %; HCT 38.4 % (36.0-46.0); HGB 12.9 g/dL (11.2-15.7); Immature Grans % 0.3 %; Lymphocytes % 23.1 %; MCH 33.5 pg (27.0-33.0); MCHC 33.6 % (32.0-36.0); MCV 100 fL (80-95); MPV 9.3 fL (8.0-11.0); Neutrophils % 61.2 %; Platelet Count 233 10^3/uL (130-400); RBC 3.85 10^6/uL (3.93-5.22); RDW 12.4 % (11.7-14.6); RDW-SD 45.1 fL; WBC 6.27 10^3/uL (4.4-10.8)
[2024-04-14 13:05] LABS: Anion Gap 11.1 mmol/L (3-11); BUN 23 mg/dL (7-18); CO2 26.9 mmol/L (21.0-32.0); CREATININE 1.3 mg/dL (0.55-1.02); Calcium 8.7 mg/dL (8.5-10.1); Chloride 104 mmol/L (98-107); Estimated GFR 41.31 (mL/min/1.73m2); Glucose 112 mg/dL (74-106); Potassium 3.9 mmol/L (3.5-5.1); Sodium 142 mmol/L (136-145)
[2024-04-17 15:43] LABS: Hemoglobin A1C 5.8 % (<5.7)
== END 2024-04-14 02:12 | disposition home or self-care (01) ==
LOC: LBO 02:12
PROVIDERS: PCP Student in an Organized Health Care Education/Training Program; Referring Provider Student in an Organized Health Care Education/Training Program; Visit Provider Student in an Organized Health Care Education/Training Program
DX: Z86.2 Personal history of diseases of the blood and blood-forming organs and certain disorders involving the immune mechanism (principal); R06.02 Shortness of breath; I48.91 Unspecified atrial fibrillation; Z91.89 Other specified personal risk factors, not elsewhere classified; R73.09 Other abnormal glucose
CPT/HCPCS: 36415; 80048; 83036; 83735; 85025

== ENCOUNTER → 2024-04-15 01:03 | Outpatient (CLI) | payer MEDICARE, SELFPAY ==
--- NOTE | 2024-04-15 08:30 | DI.US_ITS ---
APPROVED REPORT EXAM: Comprehensive 2D, Doppler, and color-flow Echocardiogram Patient Location: Out-Patient Ups Driver: Shabnam Townsend RDCS (AE) Indications: Re Evaluate EF, post Watchman and Medication changes, paroxysmal atrial fibrillation Other Information Study Quality: Adequate Conclusion Normal left ventricular wall thickness and chamber size. Ejection fraction is 55 to 60%. Wall motio n is normal Normal right ventricular size and function Left atrium is mildly enlarged. Right atrium is borderline enlarged Trileaflet aortic valve with mild regurgitation Normal mitral valve with mild regurgitation Normal tricuspid valve with moderate regurgitation. Estimated right ventricular systolic pressure is 34 mmHg Overall there has been no interval change compared to transthoracic and transesophageal echocardiogra ms performed at [facility] in December and February 2024 Wall motion Left Ventricle The left ventricle is normal size. The left ventricular systolic function is normal. The left ventric ular ejection fraction is within the normal range. There is normal left ventricular wall thickness. T here is normal LV segmental wall motion. There is no ventricular septal defect visualized. LVEF is 55 %. Right Ventricle The right ventricle is normal size. The right ventricular systolic function is normal. Atria Left atrium is mildly dilated. Right atrium is borderline dilated. The interatrial septum is intact w ith no evidence for an atrial septal defect. Aortic Valve The aortic valve is normal in structure. Aortic valve is trileaflet. There is no aortic valvular sten osis. Mild aortic regurgitation. Mitral Valve The mitral valve is normal in structure. No evidence of mitral valve stenosis. Mild mitral regurgitat ion. Tricuspid Valve The tricuspid valve is normal in structure. There is no tricuspid valve stenosis. Moderate tricuspid regurgitation. The RVSP is 34.4 mmHg. Pulmonic Valve The pulmonary valve is normal in structure. There is no pulmonic valvular stenosis. There is no pulmo lucila valvular regurgitation. Great Vessels The aortic root is normal in size. The ascending aorta is normal in size. Aortic arch is not well vis ualized. IVC is normal in size and collapses >50% with inspiration. Pericardium There is no pericardial effusion. 2D Dimensions IVSD d PLAX 0.82 cm F: 0.6-1.0 Ao Root d 2.72 cm F: 2.7 - 3.3 LVPW d PLAX 0.84 cm F: 0.6 - 1.0 Ao Asc Diam d 3.11 cm F: 2.3 - 3.1 LVID d PLAX 4.00 cm F: 3.8 - 5.2 LVDs 2.91 cm F: 2.2 - 3.5 LV EF Teichholz 52.5 % FS 26.51 % LV EDV (Teich) 68.4 mL LV ESV (Teich) 32.5 mL M-Mode TAPSE 2.33 cm (M/F) >1.7 Auto EF LV EDV A4C 72.3 mL LV EDV A2C 85.7 mL LV EDV BP 78.8 mL LV ESV A4C 33.7 mL LV ESV A2C 39.2 mL LV ESV BP 36.5 mL LVEF(%) A4C 53.5 % LVEF(%) A2C 54.3 % LVEF(%) BP 53.7 % LV SV A4C 38.7 ml LV SV A2C 46.5 ml LV SV BP 42.3 ml LV CO A4C 2.5 L/min LV CO A2C 2.6 L/min LV CO BP 2.5 L/min HR A4C 63.72 BPM HR A2C 55.30 BPM LV EDV Index (BP) LA Volume LA Length A4C 6.0 cm LA Length A2C 5.3 cm LA Area A4C s 21.33 cm2 LA Area A2C s 17.57 cm2 LA Vol A4C A-L 64.06 mL LA Vol A2C A-L 49.49 mL LA Vol Biplane A-L 60.1 mL LA Vol/BSA A4C A-L LA Vol/BSA A2C A-L LA Vol/BSA BP A-L 36.2 mL/m2 LA Vol A4C MOD 59.2 mL LA Vol A2C MOD 47.6 mL LA Vol BP MOD 56.5 mL RA Volume RA Area A4C 19.8 cm2 RA ESV A4C (A-L) 57.9mL RA Vol/BSA A4C A-L RA Length A4C 5.7 cm RA ESV A4C (MOD) 55.7mL LV Diastology MV E' medial 0.077 (>0.07 m/s) MV E Vmax 0.97 (0.4-1.3 m/s) MV E/E' MED 12.63 (<14) MV A Vmax 0.70 (0.4-1.3 m/s) MV E' lateral 0.092 (>0.1 m/s) E/A Ratio 1.4 MV E/E' LAT 10.55 (<14) MV E' Average 0.085 m/s MV E/E'(average) 11.49 Aortic Valve AoV Vmax 1.39 m/s LVOT Vmax 0.98 m/s AoV Peak Grad 45.8 mmHg LVOT Peak Grad 3.8 mmHg AoV Area (Vmax) 1.91 cm2 LVOT VTI 0.249 m AoV VTI 0.367 m LVOT Mean Grad 1.9 mmHg AoV Mean Mainor. 0.94 m/s LVOT SV 67.68 mL AoV Mean Grad 4.1 mmHg LVOT Diam s 1.85 cm AoV Area (VTI) 1.84 cm2 AV Regurg Peak Gr. 7.74 mmHg Velocity Ratio 0.71 AR Decel [place] 1.9m/sec2 AR DT 2405 msec AR PHT 697 msec AR Vmax 4.58 m/s Mitral Valve MV DT 202 (160-240 msec) MV Vmax TIPS 0.93 m/s MV Mean Grad 1.3 (<2mmHg) MV VTI 0.308 m Pulmonary Valve PV Vmax 0.79 (0.5-1.5 m/s) RVOT Vmax 0.60 m/s PV Peak Grad 2.5 mmHg RVOT Peak Gr. 1.4 mmHg PV Mean Mainor 0.57 m/s RVOT VTI 0.151 m PV Mean Grad 1.5 mmHg RVOT Mean Gr. 0.8 mmHg Tricuspid Valve RA Pressure 3.00 mmHg TR Vmax 2.80 m/s TV S' 0.12 m/s TR Peak Grad 31.3 mmHg RVSP (TR) 34.4 mmHg
== END ==
PROVIDERS: PCP Student in an Organized Health Care Education/Training Program; Visit Provider Student in an Organized Health Care Education/Training Program
DX: I48.0 Paroxysmal atrial fibrillation (principal); Z79.899 Other long term (current) drug therapy
CPT/HCPCS: 93306

== ENCOUNTER 2025-01-20 00:09 | Outpatient (CLI) | payer MEDICARE, SELFPAY ==
--- NOTE | 2025-01-20 07:00 | DI.MAMMO_ITS ---
Exam(s) MAMMO SCREENING EXAM: MAMMO SCREENING CLINICAL HISTORY: screening,Z12.39 TECHNIQUE: Mammograms were interpreted according to the usual protocol including computer analysis w [employer] CAD system, tomosynthesis and C-view imaging. COMPARISON: MG Combo Bilateral from 12/27/2022 MG Combo Bilateral from 01/01/2024 FINDINGS: The breasts are composed of scattered fibroglandular densities, Breast Density category B. No suspicious masses or suspicious microcalcifications are seen. No skin thickening or abnormal axillary lymph nodes are seen. There has been no significant change from prior exams. IMPRESSION: BI-RADS Category 1, Negative mammogram Yearly screening mammography is recommended. Breast Density - Category B, scattered fibroglandular densities. A negative radiographic report should not delay biopsy if a dominant or clinically suspicious mass is present. Up to ten percent of cancers are not identified on mammography. A negative report may reinforce clinical impression. Adenosis and dense breasts may obscure an underlying neoplasm. False positive reports average 6 to 10%. Patient will receive a letter notifying them of these results.
== END 2025-01-20 00:29 ==
LOC: DI 00:09
PROVIDERS: PCP Family Medicine; Visit Provider Student in an Organized Health Care Education/Training Program
DX: Z12.31 Encounter for screening mammogram for malignant neoplasm of breast (principal); R92.323 Mammographic fibroglandular density, bilateral breasts
CPT/HCPCS: 77063; 77067

== ENCOUNTER 2025-04-12 12:44 | Emergency (ER) | payer MEDICARE, SELFPAY ==
[2025-04-12 12:47] VITALS: BP 165/84; PULSE 63; RESP 12; TEMP 36.4; O2SAT 96
--- NOTE | 2025-04-12 13:15 | DI.RAD_ITS ---
Exam(s) XR HAND RT COMPLETE EXAM: XR HAND RT COMPLETE CLINICAL HISTORY: 2nd dip laceration and 3rd pip laceration chainsaw. TECHNIQUE: 2D digital imaging was performed of the right hand. Four images were obtained. AP, lateral and oblique views were obtained. COMPARISON: There are no priors for comparison. FINDINGS: BONES: No acute fracture is present. No bony destructive lesion is seen. JOINTS: No dislocation present. There has been a prior resection of the trapezium bone. There is osteoarthritis seen of the hand with osteophytes and joint space narrowing present. The findings are most marked at the interphalangeal joints of the hand. 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 There is chondrocalcinosis seen in the region of the TFCC. SOFT TISSUE: There is no soft tissue gas. IMPRESSION: No acute fracture or dislocation is present. DATA REPOSITORY: RADIATION DOSE DELIVERED:
[2025-04-12] MEDS: Lidocaine 2% Jelly 6 ML SYR TP (13:58)
[2025-04-12 15:09] VITALS: BP 150/79; PULSE 78
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
== END 2025-04-12 15:56 | disposition home or self-care (01) ==
PROVIDERS: Emergency Provider Physician Assistant; PCP Family Medicine
DX: S61.210A Laceration without foreign body of right index finger without damage to nail, initial encounter (principal); S61.212A Laceration without foreign body of right middle finger without damage to nail, initial encounter; L03.011 Cellulitis of right finger; I48.0 Paroxysmal atrial fibrillation; N18.32 Chronic kidney disease, stage 3b; Z79.82 Long term (current) use of aspirin; W29.3XXA Contact with powered garden and outdoor hand tools and machinery, initial encounter; Y93.H2 Activity, gardening and landscaping; Y92.89 Other specified places as the place of occurrence of the external cause
CPT/HCPCS: 99283; 73130

== ENCOUNTER 2025-06-26 09:59 | Outpatient (CLI) | payer MEDICARE, SELFPAY ==
--- NOTE | 2025-06-26 09:45 | DI.RAD_ITS ---
Exam(s) XR CHEST 2V PA LATERAL EXAM: XR CHEST 2V PA LATERAL CLINICAL HISTORY: J06.9 Acute upper resp infection, R/O pneumonia, wheezing on exam. TECHNIQUE: 2D digital imaging was performed. COMPARISON: CR XR CHEST 2V PA LATERAL from 08/17/2023 FINDINGS: 2 views: Heart size is normal. The mediastinum is not widened. Lungs are clear. No infiltrates nor pleural effusions. IMPRESSION: No acute pulmonary findings. DATA REPOSITORY: RADIATION DOSE DELIVERED:
== END 2025-06-26 10:19 ==
LOC: DI 09:59
PROVIDERS: PCP Family Medicine; Visit Provider Family Medicine
DX: J06.9 Acute upper respiratory infection, unspecified (principal)
CPT/HCPCS: 71046

== ENCOUNTER 2025-09-07 09:50 | Outpatient (CLI) | payer MEDICARE, SELFPAY ==
[2025-09-07 14:40] LABS: Hemoglobin A1C 5.8 % (<5.7)
[2025-09-07 15:07] LABS: Anion Gap 9.4 mmol/L (3-11); BUN 25 mg/dL (9-23); CO2 25.6 mmol/L (20.0-31.0); Calcium 9.0 mg/dL (8.3-10.6); Chloride 106 mmol/L (98-107); Glucose 108 mg/dL (74-106); Potassium 3.9 mmol/L (3.5-5.1); Sodium 141 mmol/L (136-145)
== END 2025-09-07 09:51 | disposition home or self-care (01) ==
LOC: LBO 09:51
PROVIDERS: PCP Family Medicine; Visit Provider Family Medicine
DX: N18.30 Chronic kidney disease, stage 3 unspecified (principal); R73.9 Hyperglycemia, unspecified
CPT/HCPCS: 36415; 80048; 83036

== ENCOUNTER 2025-09-11 13:16 | Outpatient (CLI) | payer MEDICARE, SELFPAY ==
--- NOTE | 2025-09-11 13:15 | RT.EKG_ITS ---
APPROVED REPORT Exam: Resting ECG Reason for Exam: new pt Patient Location: O HR:65 bpm ECG Measurements Heart Rate 65 AXIS MS 177 P 62 QRSd 85 QRS 45 QT 441 T 63 QTc 459 Conclusion Sinus rhythm...normal P axis, V-rate 50- 99 Low voltage, precordial leads...precordial leads <1.0mV Otherwise normal ECG
== END 2025-09-11 13:17 | disposition home or self-care (01) ==
LOC: DI.CARD 13:27
PROVIDERS: PCP Family Medicine; Referring Provider Family Medicine; Visit Provider Internal Medicine Cardiovascular Disease
DX: I48.0 Paroxysmal atrial fibrillation (principal)
CPT/HCPCS: 93010

== ENCOUNTER → 2025-09-11 13:16 | Outpatient (BNVA) | payer MEDICARE, SELFPAY | PROVIDERS: PCP Family Medicine; Referring Provider Family Medicine; Visit Provider Internal Medicine Cardiovascular Disease | DX: I48.0 Paroxysmal atrial fibrillation (principal); Z95.818 Presence of other cardiac implants and grafts | CPT/HCPCS: 99213; 93005 ==